=== PATIENT | female | born 1955 | race Caucasian/White ===

== ENCOUNTER → 2018-02-22 11:05 | Outpatient (CLI) | payer MEDICARE, SELFPAY ==
[2018-02-22 12:20] LABS: Add Manual Diff / Slide Review NO; Basophils Percent Auto 0.6 % (0-2); Eosinophils Percent Auto 1.8 % (2-4); Hematocrit 42.7 % (36-46); Hemoglobin 14.8 g/dL (12.0-16.0); Mean Corpuscular HGB Conc 34.7 % (30-36); Monocytes Percent Auto 7.4 % (3-14); Neutrophils Absolute Auto 2400 /uL (3000-5900); Neutrophils Percent Auto 58.2 % (50-75); Platelet Count 191 X10^3/uL (150-400); Red Cell Distribution Width 12.8 % (11.6-14.8); White Blood Cell Count 4.1 X10^3/uL (4.5-11.0)
[2018-02-22 12:34] LABS: Erythrocyte Sedimentation Rate 1 MM/HR (0-20)
[2018-02-22 13:09] LABS: Prothrombin Time 10.4 SECONDS (10.1-12.7)
[2018-02-22 13:10] LABS: Free T3, Triiodothyronine Free 4.01 pg/mL (2.77-5.27); Free T4, Direct Thyroxine 0.66 ng/dL (0.78-2.19)
[2018-02-22 13:18] LABS: Alanine Aminotransferase 35 IU/L (9-52); Albumin 4.3 g/dL (3.5-5.0); Albumin Globulin Ratio 1.6 (1.0-2.8); Alkaline Phosphatase 54 U/L (38-126); Aspartate Aminotransferase 21 IU/L (14-36); BUN Creatinine Ratio 16.7 (6-22); Bilirubin Total 0.4 mg/dL (0.2-1.3); Calcium 8.8 mg/dL (8.4-10.2); Estimated Glomerular Filt Rate > 60.0 mL/min (>60); Globulin 2.7 g/dL (1.7-4.1); Glucose 92 mg/dL (80-110); HEMOLYSIS 16 (0-50); Sodium 139 mmol/L (137-145)
[2018-02-22 13:21] LABS: C-Reactive Protein Quant < 0.5 mg/dL (<1.0)
[2018-02-22 13:24] LABS: Thyroid Stimulating Hormone 2.81 uIU/mL (0.47-4.68)
[2018-02-26 13:57] LABS: Thyroglobulin Antibodies < 1 IU/mL (< 2); Thyroglobulin Level 28.3 ng/mL (2.8-40.9)
[2018-03-01 16:58] LABS: Triiodothyronine T3 Reverse 7 ng/dL (8-25)
== END ==
PROVIDERS: Family Provider Family Medicine; PCP Family Medicine; Visit Provider Family Medicine
DX: R53.82 Chronic fatigue, unspecified (principal); R23.8 Other skin changes
CPT/HCPCS: 36415; 80053; 84432; 84439; 84443; 84481; 84482; 85025; 85610; 85651; 86140; 86800

== ENCOUNTER → 2018-03-08 12:48 | Outpatient (CLI) | payer MEDICARE, SELFPAY ==
--- NOTE | 2018-03-08 | DI.MG.S_ITS ---
BILATERAL DIGITAL SCREENING MAMMOGRAM 3D/2D WITH CAD: 03/08/2018 CLINICAL: Routine screening. Family history of breast cancer. Comparison is made to exams dated: 12/07/2016 mammogram, 09/24/2014 mammogram - [facility], and 03/01/2012 mammogram - [facility]. The tissue of both breasts is heterogeneously dense. This may lower the sensitivity of mammography. Current study was also evaluated with a Computer Aided Detection (CAD) system. No significant masses, calcifications, or other findings are seen in either breast. There has been no significant interval change. IMPRESSION: NEGATIVE There is no mammographic evidence of malignancy. A 1 year screening mammogram is recommended. This exam was interpreted at Station ID: [id number]. NOTE: For mammograms, a report in lay terms will be sent to the patient. Approximately 15% of breast malignancies will not be visualized mammographically. In the management of a palpable breast mass, a negative mammogram must not discourage biopsy of a clinically suspicious lesion. Electronically Signed By: Jaylon gardner/johnie:03/08/2018 15:18:42 letter sent: Normal Exam ACR BI-RADS Category 1: Negative [id number]
== END ==
PROVIDERS: Family Provider Family Medicine; PCP Family Medicine; Visit Provider Family Medicine
DX: Z12.31 Encounter for screening mammogram for malignant neoplasm of breast (principal); Z80.3 Family history of malignant neoplasm of breast
CPT/HCPCS: 77063; 77067

== ENCOUNTER 2018-04-06 05:59 | Emergency (ER) | payer MEDICARE, SELFPAY ==
[2018-04-06 06:11] VITALS: BP 156/107; PULSE 89; RESP 22; TEMP 36.9; O2SAT 100; BMI 26.6
--- NOTE | 2018-04-06 06:40 | ED_ITS ---
HPI - Weakness <Ben Odell, DO - Last Filed: 04/06/18 20:09> General Chief complaint: Weakness Stated complaint: Weakness Time Seen by Provider: 04/06/18 06:06 Source: patient and family Limitations: no limitations History of Present Illness HPI Narrative: 62-year-old female with extensive history of anxiety, depression and multiple sclerosis presents via EMS for evaluation of feeling very shaky, sweaty, anxious and confused. She was unable to ambulate to her car this morning as she was so shaky. She denies measured fever but feels very hot and sweaty. She states the symptoms have been present by and large for the past 7- 10 days. Patient has been taking clonazepam 2 mg p.o. t.i.d. for many years as well as temazepam 15 mg t.i.d.. Patient states that there was some confusion between her, Dr. Bey office, and the pharmacy and the patient has been without benzodiazepines for approximately 7-10 days. This is verified by checking the [place] prescription monitoring program and she has had a lack of access and has apparently gone ?cold turkey?. Her PCP is out of town and she has been unsuccessful in reaching Dr. Bey. Complaint: generalized weakness, lack of energy and difficulty walking Onset (ago): day(s) Duration: constant Location: generalized Related Data Home Medications Medication Instructions Recorded Confirmed cholecalciferol (vitamin D3) 5,000 iu PO QDAY #0 02/05/17 [Vitamin D3] diphenhydramine HCl #0 10/18/17 melatonin 10 mg PO HS #0 10/18/17 Previous Rx's Medication Instructions Recorded pravastatin 40 mg PO HS #90 tab 11/09/17 temazepam 45 mg PO HS #30 cap 12/12/17 temazepam 45 mg PO SEE INSTRUCTIONS #30 cap 12/12/17 gabapentin [Neurontin] 600 mg PO TID #90 tab 01/28/18 carisoprodol 350 mg tablet 350 mg PO TID #90 tab 02/21/18 paroxetine 30 mg tablet 60 mg PO QDAY #60 tab 03/12/18 clonazepam 2 mg tablet 2 mg PO TID PRN #15 tab 03/27/18 clonazepam 2 mg PO TID #21 tab 04/06/18 temazepam 30 mg PO BEDTIME PRN #21 cap 04/06/18 Allergies Allergy/AdvReac Type Severity Reaction Status Date / Time niacin [NIACIN] Allergy Intermediate PASS OUT Verified 04/06/18 06:16 Review of Systems <DO William Frausto Last Filed: 04/06/18 20:09> Review of Systems All systems reviewed & are unremarkable except as noted in HPI and below Constitutional Reports chills, Denies fever(s), Reports headache(s), Denies lethargy, Reports poor appetite and Denies weakness Eyes Denies change in vision, Denies eye discharge, Denies irritation and Denies loss of vision ENT Ears, Nose, Mouth, and Throat: Denies change in voice, Reports headache(s), Denies neck pain and Denies sore throat Cardiovascular Denies chest pain, Denies irregular heart rhythm, Denies lightheadedness, Denies palpitations, Denies dyspnea, Denies dyspnea on exertion and Denies orthopnea Respiratory Denies cough, Denies dyspnea, Denies dyspnea on exertion and Denies wheezing Gastrointestinal Gastrointestinal: Denies abdominal pain, Denies change in bowel habits, Denies diarrhea, Reports nausea and Denies vomiting Genitourinary Denies hematuria, Denies flank pain, Denies urinary incontinence and Denies urinary urgency Musculoskeletal Denies neck pain Integumentary/Breasts Denies pruritus, Denies erythema, Denies rash and Denies wounds Neurologic Denies confusion, Reports headache(s), Denies loss of vision and Denies weakness Psychiatric Denies anxiety, Denies confusion, Denies depression, Denies homicidal ideation and Denies suicidal ideation Endocrine Denies palpitations Hematologic/Lymphatic Denies easy bruising Allergic/Immunologic Denies wheezing Exam <DO William Frausto Last Filed: 04/06/18 20:09> Narrative Exam Narrative: 62-year-old female is visibly anxious, tremulous, a bit confused with trouble following conversations Initial Vital Signs Initial Vital Signs: Vital Signs Temperature 98.4 F 04/06/18 06:11 Pulse Rate 89 04/06/18 06:11 Respiratory Rate 22 04/06/18 06:11 Blood Pressure 156/107 H 04/06/18 06:11 Pulse Oximetry 100 04/06/18 06:11 Const General: acute distress, anxious, diaphoretic and disheveled Nutritional Appearance: well nourished Orientation: alert, awake, oriented x3 and confused Other: Resting tremors [facility] Head: normocephalic and atraumatic Ears: external ears normal and TM's normal bilaterally Nose: external nose normal and No nasal discharge Face and sinus: sinuses nontender, face symmetric, no sinus tenderness and No dry mucous membranes Mouth: oral mucosae normal and moist mucous membranes Teeth and gingiva: dentition normal Throat: tonsils normal and uvula midline Eyes General: appearance normal, both eyes and all related structures Eyelids: eyelids normal Conjunctivae: conjunctivae normal Sclera: sclerae normal Pupils: PERRL EOM: EOM intact bilaterally Neck Neck: normal visual inspection, trachea midline, No lymphadenopathy, No midline deformity and No JVD Lymphatic: No lymphedema Resp Effort & Inspection: normal respiratory effort, able to speak in complete sentences, no respiratory distress and no use of accessory muscles Auscultation: clear to auscultation bilaterally, no rales, no rhonchi and no wheezes GI Inspection: non-distended Palpation: soft, no hepatosplenomegaly, No guarding, No pulsatile mass and No tender Auscultation: normal bowel sounds Skin General: no rashes or lesions noted, No jaundice and No petechiae Neuro General: alert, awake and oriented x3 Cranial Nerves: CN's II-XI intact bilaterally Cognition: abnormal cognition Speech: speech normal Motor: muscle tone normal throughout Sensory Exam: no sensory deficits noted Extrem Other: Resting tremors and upper extremities Psych Appearance: disheveled Speech and Movement: pressured speech and restless Mood: anxious mood Attitude: cooperative Thought Content: delusions <Stas Dahl DO - Last Filed: 04/06/18 09:01> Initial Vital Signs Initial Vital Signs: Vital Signs Temperature 98.4 F 04/06/18 06:11 Pulse Rate 89 04/06/18 06:11 Respiratory Rate 22 04/06/18 06:11 Blood Pressure 156/107 H 04/06/18 06:11 Pulse Oximetry 100 04/06/18 06:11 Course <Ben Odell DO - Last Filed: 04/06/18 20:09> Orders Ordered: Discontinued Medications Sodium Chloride (Normal Saline 0.9%) 1,000 mls @ 150 mls/hr IV CONT NATALIE Last Admin: 04/06/18 08:48 Dose: Not Given Lorazepam (Ativan) 2 mg IV NOW ONE Stop: 04/06/18 06:16 Last Admin: 04/06/18 08:48 Dose: Not Given Lorazepam (Ativan) 2 mg PO NOW ONE Stop: 04/06/18 06:43 Last Admin: 04/06/18 06:47 Dose: 2 mg Reevaluation(s) Reevaluation #1: patient is a difficult IV start. She asks us to give her a break. Ativan PO administered. Time: 07:01 Vital Signs - 8 hr 04/06/18 06:11 04/06/18 06:57 04/06/18 08:20 Temperature 98.4 F Pulse Rate 89 88 95 H Respiratory Rate 22 14 Blood Pressure 156/107 H Blood Pressure [Left Arm] 123/78 H 157/87 H Pulse Oximetry 100 96 <Stas Dahl DO - Last Filed: 04/06/18 09:01> Orders Ordered: Discontinued Medications Sodium Chloride (Normal Saline 0.9%) 1,000 mls @ 150 mls/hr IV CONT NATALIE Last Admin: 04/06/18 08:48 Dose: Not Given Lorazepam (Ativan) 2 mg IV NOW ONE Stop: 04/06/18 06:16 Last Admin: 04/06/18 08:48 Dose: Not Given Lorazepam (Ativan) 2 mg PO NOW ONE Stop: 04/06/18 06:43 Last Admin: 04/06/18 06:47 Dose: 2 mg Vital Signs - 8 hr 04/06/18 06:11 04/06/18 06:57 04/06/18 08:20 Temperature 98.4 F Pulse Rate 89 88 95 H Respiratory Rate 22 14 Blood Pressure 156/107 H Blood Pressure [Left Arm] 123/78 H 157/87 H Pulse Oximetry 100 96 MDM - Weakness <Ben Odell DO - Last Filed: 04/06/18 20:09> Lab Data Result diagrams: 04/06/18 07:43 04/06/18 07:43 Lab Results 04/06/18 04/06/18 04/06/18 Range/Units 07:43 07:43 07:43 WBC 8.6 (4.5-11.0) X10^3/uL RBC 4.62 (4.0-5.2) X10^6/uL Hgb 15.6 (12.0-16.0) g/dL Hct 45.5 (36-46) % MCV 98.6 (80-100) fL MCH 33.7 (26-34) PG MCHC 34.2 (30-36) % RDW 14.9 H (11.6-14.8) % Plt Count 287 (150-400) X10^3/uL Neut % (Auto) 78.5 H (50-75) % Lymph % (Auto) 15.5 L (25-40) % Tate % (Auto) 5.2 (3-14) % Eos % (Auto) 0.1 L (2-4) % Baso % (Auto) 0.7 (0-2) % Neut # (Auto) 6800 H (1877-7863) /uL Sodium 137 (137-145) mmol/L Potassium 4.4 (3.4-5.1) mmol/L Chloride 99 (98-107) mmol/L Carbon Dioxide 22 (22-32) mmol/L BUN 18 H (7-17) mg/dL Creatinine 0.90 (0.52-1.04) mg/dL Estimated GFR > 60.0 (>60) mL/min BUN/Creatinine Ratio 20.0 (6-22) Glucose 113 H (80-110) mg/dL Lactate 1.3 (0.7-2.1) mmol/L Calcium 9.4 (8.4-10.2) mg/dL Total Bilirubin 0.6 (0.2-1.3) mg/dL Conjugated Bilirubin 0.0 (0.0-0.3) md/dL Unconjugated Bilirubin 0.3 (0.0-1.1) mg/dL AST 16 (14-36) IU/L ALT 18 (9-52) IU/L Alkaline Phosphatase 61 (38-126) U/L Total Protein 7.6 (6.3-8.2) g/dL Albumin 4.8 (3.5-5.0) g/dL Globulin 2.8 (1.7-4.1) g/dL Albumin/Globulin Ratio 1.7 (1.0-2.8) TSH (0.47-4.68) uIU/mL Thyroxine (T4) (5.5-11.0) ug/dL Salicylates 5.7 (<20) mg/dL Acetaminophen < 10 L (10-30) ug/mL Ethyl Alcohol < 10 mg/dL 04/06/18 Range/Units 07:43 WBC (4.5-11.0) X10^3/uL RBC (4.0-5.2) X10^6/uL Hgb (12.0-16.0) g/dL Hct (36-46) % MCV (80-100) fL MCH (26-34) PG MCHC (30-36) % RDW (11.6-14.8) % Plt Count (150-400) X10^3/uL Neut % (Auto) (50-75) % Lymph % (Auto) (25-40) % Tate % (Auto) (3-14) % Eos % (Auto) (2-4) % Baso % (Auto) (0-2) % Neut # (Auto) (8378-6669) /uL Sodium (137-145) mmol/L Potassium (3.4-5.1) mmol/L Chloride (98-107) mmol/L Carbon Dioxide (22-32) mmol/L BUN (7-17) mg/dL Creatinine (0.52-1.04) mg/dL Estimated GFR (>60) mL/min BUN/Creatinine Ratio (6-22) Glucose (80-110) mg/dL Lactate (0.7-2.1) mmol/L Calcium (8.4-10.2) mg/dL Total Bilirubin (0.2-1.3) mg/dL Conjugated Bilirubin (0.0-0.3) md/dL Unconjugated Bilirubin (0.0-1.1) mg/dL AST (14-36) IU/L ALT (9-52) IU/L Alkaline Phosphatase (38-126) U/L Total Protein (6.3-8.2) g/dL Albumin (3.5-5.0) g/dL Globulin (1.7-4.1) g/dL Albumin/Globulin Ratio (1.0-2.8) TSH 1.78 (0.47-4.68) uIU/mL Thyroxine (T4) 4.75 L (5.5-11.0) ug/dL Salicylates (<20) mg/dL Acetaminophen (10-30) ug/mL Ethyl Alcohol mg/dL <Stas Dahl DO - Last Filed: 04/06/18 09:01> Lab Data Attestation: I reviewed the patient's lab results. Lab Results 04/06/18 04/06/18 04/06/18 Range/Units 07:43 07:43 07:43 WBC 8.6 (4.5-11.0) X10^3/uL RBC 4.62 (4.0-5.2) X10^6/uL Hgb 15.6 (12.0-16.0) g/dL Hct 45.5 (36-46) % MCV 98.6 (80-100) fL MCH 33.7 (26-34) PG MCHC 34.2 (30-36) % RDW 14.9 H (11.6-14.8) % Plt Count 287 (150-400) X10^3/uL Neut % (Auto) 78.5 H (50-75) % Lymph % (Auto) 15.5 L (25-40) % Tate % (Auto) 5.2 (3-14) % Eos % (Auto) 0.1 L (2-4) % Baso % (Auto) 0.7 (0-2) % Neut # (Auto) 6800 H (5416-4903) /uL Sodium 137 (137-145) mmol/L Potassium 4.4 (3.4-5.1) mmol/L Chloride 99 (98-107) mmol/L Carbon Dioxide 22 (22-32) mmol/L BUN 18 H (7-17) mg/dL Creatinine 0.90 (0.52-1.04) mg/dL Estimated GFR > 60.0 (>60) mL/min BUN/Creatinine Ratio 20.0 (6-22) Glucose 113 H (80-110) mg/dL Lactate 1.3 (0.7-2.1) mmol/L Calcium 9.4 (8.4-10.2) mg/dL Total Bilirubin 0.6 (0.2-1.3) mg/dL Conjugated Bilirubin 0.0 (0.0-0.3) md/dL Unconjugated Bilirubin 0.3 (0.0-1.1) mg/dL AST 16 (14-36) IU/L ALT 18 (9-52) IU/L Alkaline Phosphatase 61 (38-126) U/L Total Protein 7.6 (6.3-8.2) g/dL Albumin 4.8 (3.5-5.0) g/dL Globulin 2.8 (1.7-4.1) g/dL Albumin/Globulin Ratio 1.7 (1.0-2.8) TSH (0.47-4.68) uIU/mL Thyroxine (T4) (5.5-11.0) ug/dL Salicylates 5.7 (<20) mg/dL Acetaminophen < 10 L (10-30) ug/mL Ethyl Alcohol < 10 mg/dL 04/06/18 Range/Units 07:43 WBC (4.5-11.0) X10^3/uL RBC (4.0-5.2) X10^6/uL Hgb (12.0-16.0) g/dL Hct (36-46) % MCV (80-100) fL MCH (26-34) PG MCHC (30-36) % RDW (11.6-14.8) % Plt Count (150-400) X10^3/uL Neut % (Auto) (50-75) % Lymph % (Auto) (25-40) % Tate % (Auto) (3-14) % Eos % (Auto) (2-4) % Baso % (Auto) (0-2) % Neut # (Auto) (2929-4915) /uL Sodium (137-145) mmol/L Potassium (3.4-5.1) mmol/L Chloride (98-107) mmol/L Carbon Dioxide (22-32) mmol/L BUN (7-17) mg/dL Creatinine (0.52-1.04) mg/dL Estimated GFR (>60) mL/min BUN/Creatinine Ratio (6-22) Glucose (80-110) mg/dL Lactate (0.7-2.1) mmol/L Calcium (8.4-10.2) mg/dL Total Bilirubin (0.2-1.3) mg/dL Conjugated Bilirubin (0.0-0.3) md/dL Unconjugated Bilirubin (0.0-1.1) mg/dL AST (14-36) IU/L ALT (9-52) IU/L Alkaline Phosphatase (38-126) U/L Total Protein (6.3-8.2) g/dL Albumin (3.5-5.0) g/dL Globulin (1.7-4.1) g/dL Albumin/Globulin Ratio (1.0-2.8) TSH 1.78 (0.47-4.68) uIU/mL Thyroxine (T4) 4.75 L (5.5-11.0) ug/dL Salicylates (<20) mg/dL Acetaminophen (10-30) ug/mL Ethyl Alcohol mg/dL MDM Narrative Medical decision making narrative: Dr Dahl : Received turned over from night ER provider. Reviewed patient's history and physical exam and resulted labs. Performed my own history and physical. Thyroid levels pending at the time of discharge however patient did not want to stay for the results. Patient stated that she had a resolution of all of her presenting symptoms after receiving the Ativan here in the emergency department. I have a strong suspicion that patient 's presenting symptoms this morning were result of benzodiazepine withdrawal. Patient has been on a significant amount of benzodiazepines for several years now and she ran out approximately 7-10 days ago. Patient states that she ran out because her psychiatrist who is now managing these medications did not refill them because she missed an appointment. This was per the patient's report. Patient reported to me that she is taking temazepam 45 mg at night and clonazepam 2 mg in the morning 1 mg in the afternoon and 2 mg at night. According to the [place] prescription monitoring program patient had the clonazepam refilled on the 27 of March. This was 15 tablets listed as a 5 day supply. Patient's last temazepam was filled on the 24 of February. This was 90 pills listed as a 30 day supply. Patient was informed that I could refill her medications here in the emergency department however it would only be a short supply. She was informed that she needed to contact either her primary doctor or her mental health provider to discuss long-term medication refills. Patient expressed understanding. She was alert and oriented x3 and in my opinion had capacity to make decisions. Family was at bedside for these discussions. She was given return precautions. She expressed understanding and agreement with plan Discharge Plan Departure Patient Disposition: Home, Self-Care Clinical Impression: Benzodiazepine withdrawal with delirium Discharge Date/Time: 04/06/18 09:07 Interventions: ED Discharge Assessment Last Done: 04/06/18 09:05 Instructions: Benzodiazepines (Alternative Therapy) Activity Restrictions/Additional Instructions: You need to make contact with either your primary care doctor or your psychiatrist to obtain long-term medication prescriptions. Call 1 of these providers on Sunday. Return to the emergency department for any new or worsening symptoms Prescriptions: New temazepam 15 mg capsule 30 mg PO BEDTIME PRN (Reason: sleep) Qty: 21 RF: 0 clonazepam 2 mg tablet 2 mg PO TID Qty: 21 RF: 0 No Action cholecalciferol (vitamin D3) [Vitamin D3] 2,000 UNIT capsule 5,000 iu PO QDAY Qty: 0 RF: 0 diphenhydramine HCl 50 MG capsule Qty: 0 RF: 0 melatonin 10 MG capsule 10 mg PO HS Qty: 0 RF: 0 pravastatin 40 MG tablet 40 mg PO HS Qty: 90 RF: 3 temazepam 15 MG capsule 45 mg PO HS Qty: 30 RF: 1 temazepam 30 MG capsule 45 mg PO SEE INSTRUCTIONS Qty: 30 RF: 2 gabapentin [Neurontin] 600 MG tablet 600 mg PO TID Qty: 90 RF: 2 carisoprodol 350 mg tablet 350 mg PO TID Qty: 90 RF: 1 paroxetine HCl 30 mg tablet 60 mg PO QDAY Qty: 60 RF: 1 clonazepam 2 mg tablet 2 mg PO TID PRN (Reason: anxiety) Qty: 15 RF: 0
[2018-04-06] MEDS: LORazepam 1 MG TABLET 2 MG PO (06:47)
--- NOTE | 2018-04-06 06:52 | PC.NURSE ---
7 unsuccessful iv starts. 2 nurses tried 7 different spots. pt having difficulty with anxiety and keeps flinching/pulling away. provider notified and order received for po medication.
[2018-04-06 06:57] VITALS: BP 123/78; PULSE 88
--- NOTE | 2018-04-06 07:21 | PC.NURSE ---
pt is able to keep a train of thought and articulate what she wants to say after ativan on board. pt tremors have decreased and she is now able to bring water bottle to mouth to drink in one steady slow movement
[2018-04-06 08:03] LABS: Add Manual Diff / Slide Review NO; Basophils Percent Auto 0.7 % (0-2); Eosinophils Percent Auto 0.1 % (2-4); Hematocrit 45.5 % (36-46); Hemoglobin 15.6 g/dL (12.0-16.0); Lymphocytes Percent Auto 15.5 % (25-40); Mean Corpuscular HGB Conc 34.2 % (30-36); Mean Corpuscular Hemoglobin 33.7 PG (26-34); Mean Corpuscular Volume 98.6 fL (80-100); Monocytes Percent Auto 5.2 % (3-14); Neutrophils Absolute Auto 6800 /uL (3000-5900); Neutrophils Percent Auto 78.5 % (50-75); Platelet Count 287 X10^3/uL (150-400); Red Blood Cell Count 4.62 X10^6/uL (4.0-5.2); Red Cell Distribution Width 14.9 % (11.6-14.8); White Blood Cell Count 8.6 X10^3/uL (4.5-11.0)
[2018-04-06 08:06] LABS: Lactate (Lactic Acid) 1.3 mmol/L (0.7-2.1)
[2018-04-06 08:08] LABS: Acetaminophen < 10 ug/mL (10-30); Alanine Aminotransferase 18 IU/L (9-52); Albumin 4.8 g/dL (3.5-5.0); Albumin Globulin Ratio 1.7 (1.0-2.8); Alkaline Phosphatase 61 U/L (38-126); Aspartate Aminotransferase 16 IU/L (14-36); Bilirubin Total 0.6 mg/dL (0.2-1.3); Bilirubin Unconjugated 0.3 mg/dL (0.0-1.1); Blood Urea Nitrogen 18 mg/dL (7-17); Calcium 9.4 mg/dL (8.4-10.2); Carbon Dioxide 22 mmol/L (22-32); Chloride 99 mmol/L (98-107); Estimated Glomerular Filt Rate > 60.0 mL/min (>60); Ethanol (ETOH) < 10 mg/dL; Globulin 2.8 g/dL (1.7-4.1); Glucose 113 mg/dL (80-110); HEMOLYSIS < 15 (0-50); Potassium 4.4 mmol/L (3.4-5.1); Salicylate 5.7 mg/dL (<20); Sodium 137 mmol/L (137-145); Total Protein 7.6 g/dL (6.3-8.2)
[2018-04-06 08:20] VITALS: BP 157/87; PULSE 95; RESP 14; O2SAT 96
[2018-04-06 09:07] LABS: Thyroid Stimulating Hormone 1.78 uIU/mL (0.47-4.68)
[2018-04-06 09:45] LABS: T4 Total Thyroxine 4.75 ug/dL (5.5-11.0)
== END 2018-04-06 09:07 | disposition home or self-care (01) ==
PROVIDERS: Emergency Medicine; Emergency Provider Emergency Medicine; Family Provider Family Medicine; PCP Family Medicine
DX: F13.231 Sedative, hypnotic or anxiolytic dependence with withdrawal delirium (principal)
CPT/HCPCS: 80053; 80076; 80320; 80329; 83605; 84436; 84443; 85025; 93005; 99283; 99284; G0480

== ENCOUNTER → 2018-09-06 14:30 | Oncology outpatient (ONC) | payer MEDICARE, SELFPAY ==
[2018-09-03 15:19] LABS: Add Manual Diff / Slide Review NO; Basophils Percent Auto 1.1 % (0-2); Eosinophils Percent Auto 1.3 % (2-4); Hematocrit 41.5 % (36-46); Hemoglobin 14.6 g/dL (12.0-16.0); Lymphocytes Percent Auto 31.3 % (25-40); Mean Corpuscular HGB Conc 35.1 % (30-36); Mean Corpuscular Hemoglobin 34.4 PG (26-34); Mean Corpuscular Volume 98.1 fL (80-100); Monocytes Percent Auto 7.7 % (3-14); Neutrophils Absolute Auto 3600 /uL (3000-5900); Neutrophils Percent Auto 58.6 % (50-75); Platelet Count 283 X10^3/uL (150-400); Red Blood Cell Count 4.23 X10^6/uL (4.0-5.2); Red Cell Distribution Width 12.9 % (11.6-14.8); White Blood Cell Count 6.1 X10^3/uL (4.5-11.0)
[2018-09-03 15:28] LABS: Alanine Aminotransferase 27 IU/L (9-52); Albumin 4.4 g/dL (3.5-5.0); Albumin Globulin Ratio 1.8 (1.0-2.8); Alkaline Phosphatase 63 U/L (38-126); Aspartate Aminotransferase 19 IU/L (14-36); BUN Creatinine Ratio 25.7 (6-22); Bilirubin Total 0.2 mg/dL (0.2-1.3); Blood Urea Nitrogen 18 mg/dL (7-17); Calcium 8.5 mg/dL (8.4-10.2); Carbon Dioxide 24 mmol/L (22-32); Chloride 107 mmol/L (98-107); Estimated Glomerular Filt Rate > 60.0 mL/min (>60); Globulin 2.5 g/dL (1.7-4.1); Glucose 87 mg/dL (80-110); HEMOLYSIS 29 (0-50); Potassium 3.9 mmol/L (3.4-5.1); Sodium 142 mmol/L (137-145); Total Protein 6.9 g/dL (6.3-8.2)
[2018-09-03] MEDS: methylPREDNISolone 1,000 MG in SODIUM CHLORIDE 0.9% 250 ML 258 ML IV (15:38)
[2018-09-03 15:39] LABS: Uric Acid 3.6 mg/dL (2.5-6.2)
[2018-09-03 16:24] VITALS: BP 160/101; PULSE 92; RESP 18; TEMP 37.1; O2SAT 92
--- NOTE | 2018-09-03 16:39 | PC.NURSE ---
pt has elevated BP of 160/101. Results were verified via manual cuff. Call placed to Dr. Guerrero but ended up speaking with Dr. Mccall who reviewed her BP hx and did confirm that she has been running high for sometime. She mentioned pt was on a beta cyndi but I do not see that from my view of her medication profile. Dr Mccall declined to add any additional medications to her list and pt was instructed to go to the ED if she was having a headache, dizziness or n/v from symptoms
--- NOTE | 2018-09-03 16:51 | PC.NURSE ---
IV flushed. PT requesting to leave IV in for infusion tomorrow at 3pm. Education provided and IV secured, CDI>
[2018-09-04 15:00] VITALS: BP 144/92; PULSE 86; RESP 16; TEMP 36.9; O2SAT 97
[2018-09-04] MEDS: methylPREDNISolone 1,000 MG in SODIUM CHLORIDE 0.9% 250 ML 258 ML IV (15:06)
--- NOTE | 2018-09-05 14:53 | PC.NURSE ---
Patient here for Solu-medrol infusion. Pre infusion blood glucose is 88mg/dl.
[2018-09-05] MEDS: methylPREDNISolone 1,000 MG in SODIUM CHLORIDE 0.9% 250 ML 258 ML IV (15:10)
[2018-09-06] MEDS: methylPREDNISolone 1,000 MG in SODIUM CHLORIDE 0.9% 250 ML 258 ML IV (14:32)
[2018-09-06 14:37] VITALS: BP 154/89; PULSE 74; RESP 18; TEMP 36.9
[2018-09-07 13:46] VITALS: BP 168/93; PULSE 74; RESP 14; TEMP 36.8; O2SAT 97
[2018-09-07] MEDS: methylPREDNISolone 1,000 MG in SODIUM CHLORIDE 0.9% 250 ML 258 ML IV (14:00)
== END ==
PROVIDERS: Family Provider Family Medicine; PCP Family Medicine; Visit Provider Physician Assistant
DX: G35 Multiple sclerosis (principal)
CPT/HCPCS: 80053; 82962; 84550; 85025; 96365; 96413; J2930

== ENCOUNTER → 2018-10-19 07:40 | Outpatient (CLI) | payer MEDICARE, SELFPAY ==
[2018-10-19 09:21] LABS: Add Manual Diff / Slide Review NO; Basophils Absolute Auto 100 /uL (0-100); Basophils Percent Auto 1.3 % (0-2); Eosinophils Absolute Auto 100 /uL (0-450); Eosinophils Percent Auto 1.2 % (2-4); Hematocrit 41.9 % (36-46); Hemoglobin 14.7 g/dL (12.0-16.0); Lymphocytes Absolute Auto 1700 /uL (1100-4500); Lymphocytes Percent Auto 34.2 % (25-40); Mean Corpuscular HGB Conc 35.1 % (30-36); Mean Corpuscular Hemoglobin 34.6 PG (26-34); Mean Corpuscular Volume 98.6 fL (80-100); Monocytes Absolute Auto 500 /uL (0-900); Monocytes Percent Auto 9.2 % (3-14); Neutrophils Absolute Auto 2700 /uL (1500-7000); Neutrophils Percent Auto 54.1 % (50-75); Platelet Count 232 X10^3/uL (150-400); Red Blood Cell Count 4.25 X10^6/uL (4.0-5.2); Red Cell Distribution Width 12.6 % (11.6-14.8); White Blood Cell Count 5.1 X10^3/uL (4.5-11.0)
[2018-10-19 09:22] LABS: BUN Creatinine Ratio 16.3 (6-22); Blood Urea Nitrogen 13 mg/dL (7-17); Estimated Glomerular Filt Rate > 60.0 mL/min (>60); HDL Cholesterol 33 mg/dL (40-60)
[2018-10-19 09:30] LABS: Hemoglobin A1C% w Est Avg Glu 5.6 % (4.0-6.0)
[2018-10-19 09:36] LABS: Cholesterol 460 mg/dL (140-199)
[2018-10-19 09:54] LABS: TSH w/ Reflex to FT4 4.41 uIU/mL (0.47-4.68)
[2018-10-19 10:10] LABS: Vitamin B12 500 pg/mL (239-931)
[2018-10-19 10:14] LABS: Triglycerides 1697 mg/dL (35-150)
[2018-10-23 12:51] LABS: LDL Cholesterol Direct 37 mg/dL (<100)
== END ==
PROVIDERS: PCP Family Medicine; Visit Provider Psychiatry & Neurology Neurology
DX: G35 Multiple sclerosis (principal); R73.03 Prediabetes; E78.2 Mixed hyperlipidemia
CPT/HCPCS: 36415; 80061; 82565; 82607; 83036; 83721; 84443; 84520; 85025

== ENCOUNTER → 2018-10-21 07:01 | Outpatient (CLI) | payer MEDICARE, SELFPAY ==
--- NOTE | 2018-10-21 | DI.MRI.S_ITS ---
PROCEDURE: MR HEAD/BRAIN WO/W CON INDICATIONS: MULTIPLE SCLEROSIS TECHNIQUE: Noncontrast sagittal and axial FLAIR, axial and coronal T2 fast spin echo, axial VIBE, axial gradient echo, axial diffusion and ADC through the brain. After the administration of contrast, axial and coronal VIBE with fat saturation through the brain. COMPARISON: [facility], MR, MR CERVICAL SPINE WITH/WITHOUT CONTRAST, 08/24/2018, 10:13. FINDINGS: Image quality: Excellent. CSF spaces: Ventricles are normal in size and shape. Basal cisterns are patent. No extra-axial fluid collections. Brain: No intracranial bleeds or mass effects. Aguirre-white matter interface appears intact. There are several suspicious white matter lesions involving the deep white matter immediately adjacent to the corpus callosum, best seen at the posterior genu of the corpus callosum and also a centripetally oriented lesion in the middle third of the corpus callosum on the left (series 5 image 15). No abnormal intracranial enhancement. Diffusion weighted images show no acute ischemic insults. Brainstem appears normal. Normal intravascular flow voids are present. Skull and face: Calvarial marrow signal is normal. Orbits appear normal. Sinuses: Sinuses and mastoids are clear. IMPRESSION: No acute disease, no contrast enhancing lesion is seen throughout the brain parenchyma. Note is made of deep white matter areas of elevated fluid signal along the corpus callosum, one of which is centripetally oriented and there is relative prominence of these abnormalities along the posterior genu of the corpus callosum. The findings are consistent with underlying multiple sclerosis. Please also refer to the cervical MR study performed 08/24/18 at [facility]. Dictated by: Ezequiel Bran M.D. on 10/21/2018 at 9:10 Approved by: Ezequiel Bran M.D. on 10/21/2018 at 9:16
== END ==
PROVIDERS: Family Provider Family Medicine; PCP Family Medicine; Visit Provider Physician Assistant
DX: G35 Multiple sclerosis (principal)
CPT/HCPCS: 70553; A9579

== ENCOUNTER → 2018-12-11 06:57 | Outpatient (CLI) | payer MEDICARE, SELFPAY ==
[2018-12-11 08:34] LABS: HDL Cholesterol 37 mg/dL (40-60)
[2018-12-11 09:20] LABS: Cholesterol 588 mg/dL (140-199)
[2018-12-11 09:21] LABS: Triglycerides 1823 mg/dL (35-150)
[2018-12-11 10:11] LABS: LDL Cholesterol Direct 46 mg/dL (<100)
== END ==
PROVIDERS: PCP Family Medicine; Visit Provider Family Medicine
DX: E78.2 Mixed hyperlipidemia (principal); Z79.899 Other long term (current) drug therapy
CPT/HCPCS: 36415; 80061; 83721

== ENCOUNTER 2019-01-30 16:00 | Outpatient (RCR) | payer MEDICARE, SELFPAY ==
--- NOTE | 2019-01-23 15:20 | PT.OIE ---
Current Diagnoses Multiple sclerosis (01/23/19) Unsteadiness on feet (01/23/19) Weakness (01/23/19) Past Medical History (Last Updated 03/27/18 @ 09:58 by Mellissa Leung) Anxiety (Chronic 12/10/14) Depression (Chronic 12/10/14) Multiple sclerosis (Chronic 12/10/14) Tobacco use disorder (Chronic 12/10/14) Gastroesophageal reflux disease (Chronic 04/28/15) Prediabetes (Chronic 10/11/16) Mixed hyperlipidemia (Chronic 10/11/16) Insomnia due to other mental disorder (Chronic 10/11/16) Abnormal Pap smear of cervix (Acute) Anesthesia (Acute) Chronic back pain (Acute) Endometriosis (Acute ~1973) Fibroids (Acute ~1976) Past Surgical History (Last Updated 06/11/18 @ 11:23 by Veronica Guerrero DO) History of tonsillectomy (~1958) Status post cholecystectomy (~2007) Status post hysterectomy (~1990) Provider Visit Care Team Role Provider Type Veronica Guerrero DO Attending Provider Physician Primary Care Provider Specialty: Family Practice Address: [address] [place] [address], [facility] Email: [email or web address] Physical Therapy Initial Evaluation PT-OP-A Visit Information Start: 01/23/19 16:49 Freq: Status: Active Protocol: Document 01/23/19 15:20 DLM (Rec: 01/23/19 17:44 HIEN [email or web address]) Out-Patient Physical Therapy Visit Information Visit Information Visit Type Initial Evaluation Visit Start Time 15:20 Visit Stop Time 16:20 Total Visit Minutes 60 Visit Number 1 Number of CONVENTIONS RESERVATIONIST Visits 0 Evaluation Information Evaluation Date 01/23/19 PT-OP-B Current Condition Start: 01/23/19 16:49 Freq: Status: Active Protocol: Document 01/23/19 15:20 DLM (Rec: 01/23/19 17:44 DLM [email or web address]) Current Condition History of Current Condition Onset Date 12/25/18 Current Complaints weakness and tremors History of Current Condition She had a severe flare-up of her nerve pain in her arms and legs over the winter that made her bed ridden for weeks. She got very weak from being in bed so long. She has been out of bed now for 2.5- 3 months but her strength has been slow to improve. She still has some days with severe tremors that make her unable to leave the house. She gets tired fast. The pain in her feet make it hard to wear shoes. She was diagnosed with MS 13 years ago. Prior Treatments and Tests Physical Therapy in the past while living in [place] for her balance and back spasms both associated with her MS. Future Testing and Treatments Planned plans to try the yoga class at the [facility] that her Sister teaches Treatment Goals Patient/Caregiver Goals 1) Increase her strength 2) Be able to stand for 30 minutes 3) Be able to get out of the house more often 4) Decrease her tremors Prior Functional Status Baseline Function- ADL's Independent Baseline Function- Mobility Independent Baseline Function- Gait Independent gait with quad cane Baseline Function- Recreation/Hobbies Walks for exercise, road a recumbent bike in the past for exercise Baseline Function- Other Was helping take care of her Mother before she , moved to [place] from [place] after her divorce Current Functional Impairments (Reported) Functional Limitations- ADL's pain in her feet make it hard to wear shoes some days, takes a week to clean the house, has not been able to go shopping (Sister helps her) Functional Limitations- Mobility/Gait Independent with quad cane, can only stand for 5-7 minutes at a time, can only walk about 200 feet before having to sit and rest Functional Limitations- Recreation/ She drives when her tremors Hobbies are not too bad Functional Limitations- Other she goes for infusion treatments every 6 months now for MS treatment, she can only sleep for 5.5 hours at a time then has to take a nap later in the day Personal Factors Other Personal Factors That May Effect History of depression which is Therapy/Recovery being treated, history of falls with injury but none recently per pt report, retina impairments that effect her vision PT-OP-C Subjective Start: 01/23/19 16:49 Freq: Status: Active Protocol: Document 01/23/19 15:20 DLM (Rec: 01/23/19 17:44 DLM [email or web address]) OP-PT Subjective Patient Comments Patient Comments She agrees to start PT 2x/week OP-PT Pain Assessment Pain Assessment Grid Paper Pain Assessment Grid Completed Yes: nerve pain described in arms and legs Location Bilateral Arm Pain Location Details shoulder to fingers Intensity 5 Scale Used Numeric (1 - 10) Description Aching Frequency Constant Other Pain Aggravating Factors cold Pain Alleviating Factors Lying Supine Rest Bilateral Leg Pain Location Details feet to hips Intensity 5 Scale Used Numeric (1 - 10) Description Aching Description- Other hypersensative to touch and pressure Frequency Constant Other Pain Aggravating Factors cold, pressure from wearing shoes Pain Alleviating Factors Lying Supine Rest Other Pain Alleviating Factors Gabapentin did not help Home Pain Medication Use Pain Medications Used No Pain Behaviors Pain Behaviors Wincing PT-OP-D Balance Start: 01/23/19 16:49 Freq: Status: Active Protocol: Document 01/23/19 15:20 DLM (Rec: 01/23/19 17:44 DLM [email or web address]) OP-PT Balance Assessment Sitting Balance Static Sitting Balance Ability Normal Dynamic Sitting Balance Ability Good Standing Balance Static Standing Balance Ability Fair Dynamic Standing Balance Ability Fair Device Used none during testing Standing Balance Comments uses quad cane for gait, has 4WW to use on her bad days Balance Tests Single Limb Standing Single Limb- Right 3-5 sec Single Limb- Left 3-5 sec with more sway than right Semi-Tandem Standing Semi-Tandem Standing Balance can hold with wider base of support, unable to hold if foot touching other Tandem Tandem Standing unable to hold Bell Balance Assessment Evaluation Sitting to Standing Ability Independent w/out Hands Unsupported Stance Safely- 2 minutes Sitting Unsupported, Feet on Floor Safely- 2 minutes Standing to Sitting Ability Safely, Minimal Hand Use Transfer Ability Safely, Minimal Hand Use Unsupported Stance- Eyes Closed Supervision, 10 seconds Unsupported Stance- Eyes Open Independent, 1 minute Reaching Forward Standing Confidently, 10 inches Pick- Up Object From Floor Within 2 inches, Unable Look Behind Shoulder - Standing Shifts Weight Well Turning 360 Degrees Turns slowly, but safely Unsupported Stance, Alternating Feet on 4 Steps w/Supervision Stair Unsupported Tandem Stance Holds Tandem- 30 seconds Unilateral Leg Stance Lifts Leg/Holds > 3 secs Total Score Bell Total Score (out of 56 points) 46 Bell Impairment Rating 1 to 19% Impaired (Score 45-55 ) Nataliia Fall Scale Copyright Permission Nataliia BAUTISTA, Nataliia RM, Bj S[place]. Development of a scale to identify the fall- prone patient. Can J Aging 1989;8;366-7. Anny William (2009). Preventing patient falls. (2nd ed). [place]: [place]. PT-OP-E Functional Tests Start: 01/23/19 16:49 Freq: Status: Active Protocol: Document 01/23/19 15:20 DLM (Rec: 01/23/19 17:44 DLM [email or web address]) Functional Tests Five Times Sit to Stand Test Score 20 sec, 17 sec Comments no use of UE's PT-OP-G Mobility & Gait Start: 01/23/19 16:49 Freq: Status: Active Protocol: Document 01/23/19 15:20 DLM (Rec: 01/23/19 17:44 DLM [email or web address]) OP Mobility Evaluation Bed Mobility Rolling Independent Supine to and from Sit Independent Transfers Sit to Stand Independent without UE support Bed to Chair Transfers Independent OP Gait Assessment Gait Gait Assistance Required: Independent Distance (Feet) 150 Assistive Devices Assistive Device Small Based Quad Cane Gait Deviations General Gait Pattern Ataxic Decreased Stride Length Wide Based Gait Factors Limiting Gait Function Factors Limiting Gait Function Abnormal Tonal Influences Decreased Activity Tolerance Poor Balance PT-OP-H Neuro Start: 01/23/19 16:49 Freq: Status: Active Protocol: Document 01/23/19 15:20 DLM (Rec: 01/23/19 17:44 DLM [email or web address]) Coordination Evaluation Lower Extremity Tests Left Foot Tapping Test Moderate Impairment Drawing a [facility] w/Foot Test Moderate Impairment Right Foot Tapping Test Moderate Impairment Drawing a [facility] w/Foot Test Moderate Impairment Muscle Tone Tone Assessment Right Lower Extremity Muscle Tone Comments tremors worse with movement and muscle testing, throughout body Left Lower Extremity Muscle Tone Comments tremors worse with movement and muscle testing, throughout body PT-OP-K Range of Motion Start: 01/23/19 16:49 Freq: Status: Active Protocol: Document 01/23/19 15:20 DLM (Rec: 01/23/19 17:44 DLM [email or web address]) Shoulder Goniometric Range of Motion Shoulder Measured in Degrees Right Active Shoulder ROM WFL Yes Left Active Shoulder ROM WFL Yes Hip Goniometric Range of Motion Hip Measured in Degrees Right Active Hip ROM WFL Yes Left Active Hip ROM WFL Yes PT-OP-M Strength Start: 01/23/19 16:49 Freq: Status: Active Protocol: Document 01/23/19 15:20 DLM (Rec: 01/23/19 17:44 DL [email or web address]) Shoulder Strength Shoulder Manual Muscle Testing Right Flexion 5 Normal Extension 5 Normal Abduction (C5) 5 Normal Left Flexion 5 Normal Extension 5 Normal Abduction (C5) 5 Normal Elbow/Forearm Strength Elbow and Forearm Manual Muscle Testing Right Flexion (C6) 5 Normal Extension (C7) 5 Normal Pronation 5 Normal Supination 5 Normal Left Flexion (C6) 5 Normal Extension (C7) 4+ Good+ Pronation 5 Normal Supination 5 Normal Wrist Strength Wrist Manual Muscle Testing Right Flexion (C7) 5 Normal Extension (C6) 5 Normal Left Flexion (C7) 5 Normal Extension (C6) 5 Normal Hand Branch Administrator/Pinch Strength Hand Dominance Hand Dominance Right Hip Strength Hip Manual Muscle Testing Right Flexion (L2) 5 Normal Extension (S1) 5 Normal Abduction 5 Normal Left Flexion (L2) 5 Normal Abduction 5 Normal Adduction 5 Normal Knee Strength Knee Manual Muscle Testing Right Flexion (S2) 5 Normal Extension (L3) 5 Normal Left Flexion (S2) 5 Normal Extension (L3) 5 Normal Ankle/Foot Strength Ankle and Foot Manual Muscle Testing Right Dorsiflexion (L4) 5 Normal Plantarflexion (S1) 4 Good Comments PF tested standing Left Dorsiflexion (L4) 5 Normal Plantarflexion (S1) 4 Good Comments PF tested standing PT-OP-T Assessment and Plan Start: 01/23/19 16:49 Freq: Status: Active Protocol: Document 01/23/19 15:20 [facility] (Rec: 01/23/19 17:44 [facility] [email or web address]) Physical Therapy Assessment Rehab Potential Rehabilitation Potential Good Evaluation Complexity Number of Personal Factors/Comorbidities 1-2 Number of Body Systems Impaired 4 or More Clinical Presentation at Evaluation Evolving Impairments Impairments Activity Tolerance Balance Coordination Functional Activities Gait Pain Strength Tone Other Concerns Fall Risk increased risk, hx of falls Goals Four Impairment Decreased gait tolerance, able to walk about 200 feet before needing to sit Short Term Goal (STG) Increase her gait tolerance to allow for ambulating 500 feet before needing a seated rest break STG Duration 4 weeks Jail Goal (LTG) Increase her gait tolerance to allow for going shopping with her Sister LTG Duration 8 weeks Three Impairment Decreased activity tolerance, can only stand for 5-7 min Short Term Goal (STG) Increase her activity tolerance to allow for standing at home for 15 min at a time STG Duration 4 weeks Jail Goal (LTG) Increase her activity tolerance to allow for standing 30 min at a time at home LTG Duration 8 weeks Two Impairment Decreased standing balance, Bell Score 46/56 Short Term Goal (STG) Increase Bell Score to 48/56 STG Duration 4 weeks Chemistry Professor Goal (LTG) Increase Bell Score to 50/56 LTG Duration 8 weeks One Impairment Decreased LE strength Short Term Goal (STG) Increase LE strength to 5/5 STG Duration 4 weeks Assessment Summary Assessment Candy presents with impairments related to her MS exacerbation over the winter and prolonged decreased activity. She is motivated to increase her activity level. Her nerve pain in her UE's and LE's appear to be a factor in her decreased activity tolerance as well as her tremors. She is a good candidate for physical therapy to address the deficits noted on evaluation. I anticipate her exercises will need to be progressed slowly to avoid over-fatigue. Physical Therapy Plan Frequency and Duration Frequency of Treatment 2x/Week Duration of Treatment 8 weeks Plan of Care Start Date 01/23/19 Plan of Care End Date 03/20/19 Therapeutic Interventions Therapeutic Interventions Balance Training Coordination Training Gait Training Home Exercise Program Neuromuscular Re-education Patient/Caregiver Education Self-Care/Home Management Therapeutic Activities Therapeutic Exercises Next Visit Focus/Plan Next Note Type Treatment Note Next Visit Plan start on recumbent bike, advance exercises slowly to prevent over-fatigue, may need to start with 30 min treatments than advance to 45 min as she tolerates
--- NOTE | 2019-01-23 16:20 | PT.OPPOC ---
Current Diagnoses Multiple sclerosis (01/23/19) Unsteadiness on feet (01/23/19) Weakness (01/23/19) Provider Visit Care Team Role Provider Type Veronica Guerrero DO Attending Provider Physician Primary Care Provider Specialty: Family Practice Address: [address] [place] [address], [id number] Email: [email or web address] Plan Of Care PT-OP-T Assessment and Plan Start: 01/23/19 16:49 Freq: Status: Active Protocol: Document 01/23/19 15:20 DLM (Rec: 01/23/19 17:44 DLM [email or web address]) Physical Therapy Assessment Rehab Potential Rehabilitation Potential Good Evaluation Complexity Number of Personal Factors/Comorbidities 1-2 Number of Body Systems Impaired 4 or More Clinical Presentation at Evaluation Evolving Impairments Impairments Activity Tolerance Balance Coordination Functional Activities Gait Pain Strength Tone Other Concerns Fall Risk increased risk, hx of falls Goals Four Impairment Decreased gait tolerance, able to walk about 200 feet before needing to sit Short Term Goal (STG) Increase her gait tolerance to allow for ambulating 500 feet before needing a seated rest break STG Duration 4 weeks Jail Goal (LTG) Increase her gait tolerance to allow for going shopping with her Sister LTG Duration 8 weeks Three Impairment Decreased activity tolerance, can only stand for 5-7 min Short Term Goal (STG) Increase her activity tolerance to allow for standing at home for 15 min at a time STG Duration 4 weeks Associate Professor Goal (LTG) Increase her activity tolerance to allow for standing 30 min at a time at home LTG Duration 8 weeks Two Impairment Decreased standing balance, Bell Score 46/56 Short Term Goal (STG) Increase Bell Score to 48/56 STG Duration 4 weeks Jail Goal (LTG) Increase Bell Score to 50/56 LTG Duration 8 weeks One Impairment Decreased LE strength Short Term Goal (STG) Increase LE strength to 5/5 STG Duration 4 weeks Assessment Summary Assessment Candy presents with impairments related to her MS exacerbation over the winter and prolonged decreased activity. She is motivated to increase her activity level. Her nerve pain in her UE's and LE's appear to be a factor in her decreased activity tolerance as well as her tremors. She is a good candidate for physical therapy to address the deficits noted on evaluation. I anticipate her exercises will need to be progressed slowly to avoid over-fatigue. Physical Therapy Plan Frequency and Duration Frequency of Treatment 2x/Week Duration of Treatment 8 weeks Plan of Care Start Date 01/23/19 Plan of Care End Date 03/20/19 Therapeutic Interventions Therapeutic Interventions Balance Training Coordination Training Gait Training Home Exercise Program Neuromuscular Re-education Patient/Caregiver Education Self-Care/Home Management Therapeutic Activities Therapeutic Exercises Next Visit Focus/Plan Next Note Type Treatment Note Next Visit Plan start on recumbent bike, advance exercises slowly to prevent over-fatigue, may need to start with 30 min treatments than advance to 45 min as she tolerates Plan of Care Dates Plan of Care Start Date 01/23/19 Plan of Care End Date 03/20/19 Please Sign and Return: I have reviewed this Plan of Care and certify that the skilled therapy services above are required to meet the patient?s needs. Physician Signature Date Printed Name and Credentials Clinical Instructor Signature Printed Name and Credentials
--- NOTE | 2019-01-30 16:44 | PT.OTN ---
Current Diagnoses Multiple sclerosis (01/30/19) Weakness (01/30/19) Physical Therapy Treatment Note PT-OP-A Visit Information Start: 01/23/19 16:49 Freq: Status: Active Protocol: Document 01/30/19 16:38 EA (Rec: 01/30/19 16:41 EA [id number]) Out-Patient Physical Therapy Visit Information Visit Information Visit Type Treatment Note Visit Start Time 16:00 Visit Stop Time 16:35 Total Visit Minutes 35 Visit Number 2 PT-OP-B Current Condition Start: 01/23/19 16:49 Freq: Status: Active Protocol: Document 01/23/19 15:20 DLM (Rec: 01/23/19 17:44 DLM [id number]) Current Condition History of Current Condition Onset Date 12/25/18 Current Complaints weakness and tremors History of Current Condition She had a severe flare-up of her nerve pain in her arms and legs over the winter that made her bed ridden for weeks. She got very weak from being in bed so long. She has been out of bed now for 2.5- 3 months but her strength has been slow to improve. She still has some days with severe tremors that make her unable to leave the house. She gets tired fast. The pain in her feet make it hard to wear shoes. She was diagnosed with MS 13 years ago. Prior Treatments and Tests Physical Therapy in the past while living in [place] for her balance and back spasms both associated with her MS. Future Testing and Treatments Planned plans to try the yoga class at the [facility] that her Sister teaches Treatment Goals Patient/Caregiver Goals 1) Increase her strength 2) Be able to stand for 30 minutes 3) Be able to get out of the house more often 4) Decrease her tremors Prior Functional Status Baseline Function- ADL's Independent Baseline Function- Mobility Independent Baseline Function- Gait Independent gait with quad cane Baseline Function- Recreation/Hobbies Walks for exercise, road a recumbent bike in the past for exercise Baseline Function- Other Was helping take care of her Mother before she , moved to [place] from [place] after her divorce Current Functional Impairments (Reported) Functional Limitations- ADL's pain in her feet make it hard to wear shoes some days, takes a week to clean the house, has not been able to go shopping (Sister helps her) Functional Limitations- Mobility/Gait Independent with quad cane, can only stand for 5-7 minutes at a time, can only walk about 200 feet before having to sit and rest Functional Limitations- Recreation/ She drives when her tremors Hobbies are not too bad Functional Limitations- Other she goes for infusion treatments every 6 months now for MS treatment, she can only sleep for 5.5 hours at a time then has to take a nap later in the day Personal Factors Other Personal Factors That May Effect History of depression which is Therapy/Recovery being treated, history of falls with injury but none recently per pt report, retina impairments that effect her vision PT-OP-C Subjective Start: 01/23/19 16:49 Freq: Status: Active Protocol: Document 01/30/19 16:38 EA (Rec: 01/30/19 16:41 EA [id number]) OP-PT Subjective Patient Comments Patient Comments Pt reports would like to try 30 mins of PT initially jsut to see how her body reacts. PT-OP-D Balance Start: 01/23/19 16:49 Freq: Status: Active Protocol: Document 01/23/19 15:20 DLM (Rec: 01/23/19 17:44 DLM [email or web address]) OP-PT Balance Assessment Sitting Balance Static Sitting Balance Ability Normal Dynamic Sitting Balance Ability Good Standing Balance Static Standing Balance Ability Fair Dynamic Standing Balance Ability Fair Device Used none during testing Standing Balance Comments uses quad cane for gait, has 4WW to use on her bad days Balance Tests Single Limb Standing Single Limb- Right 3-5 sec Single Limb- Left 3-5 sec with more sway than right Semi-Tandem Standing Semi-Tandem Standing Balance can hold with wider base of support, unable to hold if foot touching other Tandem Tandem Standing unable to hold Bell Balance Assessment Evaluation Sitting to Standing Ability Independent w/out Hands Unsupported Stance Safely- 2 minutes Sitting Unsupported, Feet on Floor Safely- 2 minutes Standing to Sitting Ability Safely, Minimal Hand Use Transfer Ability Safely, Minimal Hand Use Unsupported Stance- Eyes Closed Supervision, 10 seconds Unsupported Stance- Eyes Open Independent, 1 minute Reaching Forward Standing Confidently, 10 inches Pick- Up Object From Floor Within 2 inches, Unable Look Behind Shoulder - Standing Shifts Weight Well Turning 360 Degrees Turns slowly, but safely Unsupported Stance, Alternating Feet on 4 Steps w/Supervision Stair Unsupported Tandem Stance Holds Tandem- 30 seconds Unilateral Leg Stance Lifts Leg/Holds > 3 secs Total Score Bell Total Score (out of 56 points) 46 Bell Impairment Rating 1 to 19% Impaired (Score 45-55 ) William Fall Scale Copyright Permission Ntaaliia JM, Nataliia RM, Bj SJ. Development of a scale to identify the fall- prone patient. Can J Aging 1989;8;366-7. Anny William (2009). Preventing patient falls. (2nd ed). [place]: [place]. PT-OP-E Functional Tests Start: 01/23/19 16:49 Freq: Status: Active Protocol: Document 01/23/19 15:20 DLM (Rec: 01/23/19 17:44 DLM [email or web address]) Functional Tests Five Times Sit to Stand Test Score 20 sec, 17 sec Comments no use of UE's PT-OP-G Mobility & Gait Start: 01/23/19 16:49 Freq: Status: Active Protocol: Document 01/23/19 15:20 DLM (Rec: 01/23/19 17:44 DLM [email or web address]) OP Mobility Evaluation Bed Mobility Rolling Independent Supine to and from Sit Independent Transfers Sit to Stand Independent without UE support Bed to Chair Transfers Independent OP Gait Assessment Gait Gait Assistance Required: Independent Distance (Feet) 150 Assistive Devices Assistive Device Small Based Quad Cane Gait Deviations General Gait Pattern Ataxic Decreased Stride Length Wide Based Gait Factors Limiting Gait Function Factors Limiting Gait Function Abnormal Tonal Influences Decreased Activity Tolerance Poor Balance PT-OP-H Neuro Start: 01/23/19 16:49 Freq: Status: Active Protocol: Document 01/23/19 15:20 DLM (Rec: 01/23/19 17:44 DLM [email or web address]) Coordination Evaluation Lower Extremity Tests Left Foot Tapping Test Moderate Impairment Drawing a [place] w/Foot Test Moderate Impairment Right Foot Tapping Test Moderate Impairment Drawing a [place] w/Foot Test Moderate Impairment Muscle Tone Tone Assessment Right Lower Extremity Muscle Tone Comments tremors worse with movement and muscle testing, throughout body Left Lower Extremity Muscle Tone Comments tremors worse with movement and muscle testing, throughout body PT-OP-K Range of Motion Start: 01/23/19 16:49 Freq: Status: Active Protocol: Document 01/23/19 15:20 DLM (Rec: 01/23/19 17:44 DLM [email or web address]) Shoulder Goniometric Range of Motion Shoulder Measured in Degrees Right Active Shoulder ROM WFL Yes Left Active Shoulder ROM WFL Yes Hip Goniometric Range of Motion Hip Measured in Degrees Right Active Hip ROM WFL Yes Left Active Hip ROM WFL Yes PT-OP-M Strength Start: 01/23/19 16:49 Freq: Status: Active Protocol: Document 01/23/19 15:20 DLM (Rec: 01/23/19 17:44 DLM [email or web address]) Shoulder Strength Shoulder Manual Muscle Testing Right Flexion 5 Normal Extension 5 Normal Abduction (C5) 5 Normal Left Flexion 5 Normal Extension 5 Normal Abduction (C5) 5 Normal Elbow/Forearm Strength Elbow and Forearm Manual Muscle Testing Right Flexion (C6) 5 Normal Extension (C7) 5 Normal Pronation 5 Normal Supination 5 Normal Left Flexion (C6) 5 Normal Extension (C7) 4+ Good+ Pronation 5 Normal Supination 5 Normal Wrist Strength Wrist Manual Muscle Testing Right Flexion (C7) 5 Normal Extension (C6) 5 Normal Left Flexion (C7) 5 Normal Extension (C6) 5 Normal Hand Driver License Examiner/Pinch Strength Hand Dominance Hand Dominance Right Hip Strength Hip Manual Muscle Testing Right Flexion (L2) 5 Normal Extension (S1) 5 Normal Abduction 5 Normal Left Flexion (L2) 5 Normal Abduction 5 Normal Adduction 5 Normal Knee Strength Knee Manual Muscle Testing Right Flexion (S2) 5 Normal Extension (L3) 5 Normal Left Flexion (S2) 5 Normal Extension (L3) 5 Normal Ankle/Foot Strength Ankle and Foot Manual Muscle Testing Right Dorsiflexion (L4) 5 Normal Plantarflexion (S1) 4 Good Comments PF tested standing Left Dorsiflexion (L4) 5 Normal Plantarflexion (S1) 4 Good Comments PF tested standing PT-OP-Q Treatments Start: 01/23/19 16:49 Freq: Status: Active Protocol: Document 01/30/19 16:41 EA (Rec: 01/30/19 16:43 EA [id number]) Cardio Equipment Recumbent Stepper (Sci-Fit) Duration (Minutes) 10 Resistance 1 Gym Equipment Shuttle Recovery Unilateral Heel Raises Resistance 1 cord Shuttle Recovery Platform Stable Reps/Time x 20 reps Bilateral Squats Resistance 2 cords Shuttle Recovery Platform Stable Reps/Time x 20 reps Shuttle Balance 1 Details WBOS/NBOS/ tandem stance with arm arm challenge Reps/Duration x 12 mins Comments CGA PT-OP-T Assessment and Plan Start: 01/23/19 16:49 Freq: Status: Active Protocol: Document 01/30/19 16:38 EA (Rec: 01/30/19 16:41 EA [id number]) Physical Therapy Assessment Assessment Summary Assessment Tolerated treatment well but requires frequent rest due to SOB and valsalva. Physical Therapy Plan Next Visit Focus/Plan Next Note Type Treatment Note Next Visit Plan UE strengthening/flexibility addition
--- NOTE | 2019-06-02 14:17 | PT.OPDS ---
Current Diagnoses Multiple sclerosis (01/30/19) Weakness (01/30/19) Provider Visit Care Team Role Provider Type Veronica Guerrero DO Attending Provider Physician Primary Care Provider Specialty: Family Practice Address: [address] [place] [address], [address], [place], [address] Email: [email or web address] Visit Number Visit Number 2 Discharge Summary PT-OP-B Current Condition Start: 01/23/19 16:49 Freq: Status: Active Protocol: Document 01/23/19 15:20 DLM (Rec: 01/23/19 17:44 DLM [email or web address]) Current Condition History of Current Condition Onset Date 12/25/18 Current Complaints weakness and tremors History of Current Condition She had a severe flare-up of her nerve pain in her arms and legs over the winter that made her bed ridden for weeks. She got very weak from being in bed so long. She has been out of bed now for 2.5- 3 months but her strength has been slow to improve. She still has some days with severe tremors that make her unable to leave the house. She gets tired fast. The pain in her feet make it hard to wear shoes. She was diagnosed with MS 13 years ago. Prior Treatments and Tests Physical Therapy in the past while living in [place] for her balance and back spasms both associated with her MS. Future Testing and Treatments Planned plans to try the yoga class at the [facility] that her Sister teaches Treatment Goals Patient/Caregiver Goals 1) Increase her strength 2) Be able to stand for 30 minutes 3) Be able to get out of the house more often 4) Decrease her tremors Prior Functional Status Baseline Function- ADL's Independent Baseline Function- Mobility Independent Baseline Function- Gait Independent gait with quad cane Baseline Function- Recreation/Hobbies Walks for exercise, road a recumbent bike in the past for exercise Baseline Function- Other Was helping take care of her Mother before she , moved to [place] from [place] after her divorce Current Functional Impairments (Reported) Functional Limitations- ADL's pain in her feet make it hard to wear shoes some days, takes a week to clean the house, has not been able to go shopping (Sister helps her) Functional Limitations- Mobility/Gait Independent with quad cane, can only stand for 5-7 minutes at a time, can only walk about 200 feet before having to sit and rest Functional Limitations- Recreation/ She drives when her tremors Hobbies are not too bad Functional Limitations- Other she goes for infusion treatments every 6 months now for MS treatment, she can only sleep for 5.5 hours at a time then has to take a nap later in the day Personal Factors Other Personal Factors That May Effect History of depression which is Therapy/Recovery being treated, history of falls with injury but none recently per pt report, retina impairments that effect her vision PT-OP-C Subjective Start: 01/23/19 16:49 Freq: Status: Active Protocol: Document 06/02/19 14:13 EA (Rec: 06/02/19 14:17 EA [id number]) OP-PT Subjective Patient Comments Patient Comments Patient is discharge today after cancelling all care plan scheduled appointments on the last week of January. PT-OP-D Balance Start: 01/23/19 16:49 Freq: Status: Active Protocol: Document 01/23/19 15:20 DLM (Rec: 01/23/19 17:44 DLM [email or web address]) OP-PT Balance Assessment Sitting Balance Static Sitting Balance Ability Normal Dynamic Sitting Balance Ability Good Standing Balance Static Standing Balance Ability Fair Dynamic Standing Balance Ability Fair Device Used none during testing Standing Balance Comments uses quad cane for gait, has 4WW to use on her bad days Balance Tests Single Limb Standing Single Limb- Right 3-5 sec Single Limb- Left 3-5 sec with more sway than right Semi-Tandem Standing Semi-Tandem Standing Balance can hold with wider base of support, unable to hold if foot touching other Tandem Tandem Standing unable to hold Bell Balance Assessment Evaluation Sitting to Standing Ability Independent w/out Hands Unsupported Stance Safely- 2 minutes Sitting Unsupported, Feet on Floor Safely- 2 minutes Standing to Sitting Ability Safely, Minimal Hand Use Transfer Ability Safely, Minimal Hand Use Unsupported Stance- Eyes Closed Supervision, 10 seconds Unsupported Stance- Eyes Open Independent, 1 minute Reaching Forward Standing Confidently, 10 inches Pick- Up Object From Floor Within 2 inches, Unable Look Behind Shoulder - Standing Shifts Weight Well Turning 360 Degrees Turns slowly, but safely Unsupported Stance, Alternating Feet on 4 Steps w/Supervision Stair Unsupported Tandem Stance Holds Tandem- 30 seconds Unilateral Leg Stance Lifts Leg/Holds > 3 secs Total Score Bell Total Score (out of 56 points) 46 Bell Impairment Rating 1 to 19% Impaired (Score 45-55 ) William Fall Scale Copyright Permission PT-OP-E Functional Tests Start: 01/23/19 16:49 Freq: Status: Active Protocol: Document 01/23/19 15:20 DLM (Rec: 01/23/19 17:44 DLM [email or web address]) Functional Tests Five Times Sit to Stand Test Score 20 sec, 17 sec Comments no use of UE's PT-OP-G Mobility & Gait Start: 01/23/19 16:49 Freq: Status: Active Protocol: Document 01/23/19 15:20 DLM (Rec: 01/23/19 17:44 DL [email or web address]) OP Mobility Evaluation Bed Mobility Rolling Independent Supine to and from Sit Independent Transfers Sit to Stand Independent without UE support Bed to Chair Transfers Independent OP Gait Assessment Gait Gait Assistance Required: Independent Distance (Feet) 150 Assistive Devices Assistive Device Small Based Quad Cane Gait Deviations General Gait Pattern Ataxic Decreased Stride Length Wide Based Gait Factors Limiting Gait Function Factors Limiting Gait Function Abnormal Tonal Influences Decreased Activity Tolerance Poor Balance PT-OP-H Neuro Start: 01/23/19 16:49 Freq: Status: Active Protocol: Document 01/23/19 15:20 DLM (Rec: 01/23/19 17:44 DL [email or web address]) Coordination Evaluation Lower Extremity Tests Left Foot Tapping Test Moderate Impairment Drawing a [place] w/Foot Test Moderate Impairment Right Foot Tapping Test Moderate Impairment Drawing a [place] w/Foot Test Moderate Impairment Muscle Tone Tone Assessment Right Lower Extremity Muscle Tone Comments tremors worse with movement and muscle testing, throughout body Left Lower Extremity Muscle Tone Comments tremors worse with movement and muscle testing, throughout body PT-OP-K Range of Motion Start: 01/23/19 16:49 Freq: Status: Active Protocol: Document 01/23/19 15:20 DLM (Rec: 01/23/19 17:44 DLM [email or web address]) Shoulder Goniometric Range of Motion Shoulder Right Active Shoulder ROM WFL Yes Left Active Shoulder ROM WFL Yes Hip Goniometric Range of Motion Hip Right Active Hip ROM WFL Yes Left Active Hip ROM WFL Yes PT-OP-M Strength Start: 01/23/19 16:49 Freq: Status: Active Protocol: Document 01/23/19 15:20 DLM (Rec: 01/23/19 17:44 DLM [email or web address]) Shoulder Strength Shoulder Manual Muscle Testing Right Flexion 5 Normal Extension 5 Normal Abduction (C5) 5 Normal Left Flexion 5 Normal Extension 5 Normal Abduction (C5) 5 Normal Elbow/Forearm Strength Elbow and Forearm Manual Muscle Testing Right Flexion (C6) 5 Normal Extension (C7) 5 Normal Pronation 5 Normal Supination 5 Normal Left Flexion (C6) 5 Normal Extension (C7) 4+ Good+ Pronation 5 Normal Supination 5 Normal Wrist Strength Wrist Manual Muscle Testing Right Flexion (C7) 5 Normal Extension (C6) 5 Normal Left Flexion (C7) 5 Normal Extension (C6) 5 Normal Hand [employer]er/Pinch Strength Hand Dominance Hand Dominance Right Hip Strength Hip Manual Muscle Testing Right Flexion (L2) 5 Normal Extension (S1) 5 Normal Abduction 5 Normal Left Flexion (L2) 5 Normal Abduction 5 Normal Adduction 5 Normal Knee Strength Knee Manual Muscle Testing Right Flexion (S2) 5 Normal Extension (L3) 5 Normal Left Flexion (S2) 5 Normal Extension (L3) 5 Normal Ankle/Foot Strength Ankle and Foot Manual Muscle Testing Right Dorsiflexion (L4) 5 Normal Plantarflexion (S1) 4 Good Comments PF tested standing Left Dorsiflexion (L4) 5 Normal Plantarflexion (S1) 4 Good Comments PF tested standing PT-OP-T Assessment and Plan Start: 01/23/19 16:49 Freq: Status: Active Protocol: Document 06/02/19 14:13 EA (Rec: 06/02/19 14:17 EA [id number]) Physical Therapy Assessment Assessment Summary Assessment Discharge due to none compliant with scheduled appointments. Physical Therapy Plan Discharge Physical Therapy Discharge Reasons No Longer Attending PT
== END 2019-06-06 10:06 | disposition home or self-care (01) ==
LOC: PHYS 16:00
PROVIDERS: PCP Family Medicine; Visit Provider Family Medicine
DX: R53.1 Weakness (principal); G35 Multiple sclerosis
CPT/HCPCS: 97110; 97162

== ENCOUNTER → 2019-02-19 06:44 | Outpatient (CLI) | payer MEDICARE, SELFPAY ==
[2019-02-19 07:25] LABS: Add Manual Diff / Slide Review NO; Basophils Absolute Auto 100 /uL (0-100); Eosinophils Absolute Auto 100 /uL (0-450); Eosinophils Percent Auto 1.4 % (2-4); Hematocrit 42.6 % (36-46); Hemoglobin 15.2 g/dL (12.0-16.0); Lymphocytes Absolute Auto 1100 /uL (1100-4500); Lymphocytes Percent Auto 16.2 % (25-40); Mean Corpuscular HGB Conc 35.7 % (30-36); Mean Corpuscular Hemoglobin 34.1 PG (26-34); Mean Corpuscular Volume 95.5 fL (80-100); Monocytes Absolute Auto 600 /uL (0-900); Monocytes Percent Auto 9.2 % (3-14); Neutrophils Absolute Auto 4800 /uL (1500-7000); Neutrophils Percent Auto 72.2 % (50-75); Platelet Count 330 X10^3/uL (150-400); Red Blood Cell Count 4.46 X10^6/uL (4.0-5.2); Red Cell Distribution Width 12.3 % (11.6-14.8); White Blood Cell Count 6.7 X10^3/uL (4.5-11.0)
[2019-02-19 07:36] LABS: Alanine Aminotransferase 28 IU/L (9-52); Albumin 4.6 g/dL (3.5-5.0); Albumin Globulin Ratio 1.6 (1.0-2.8); Alkaline Phosphatase 60 U/L (38-126); Aspartate Aminotransferase 19 IU/L (14-36); BUN Creatinine Ratio 18.9 (6-22); Bilirubin Total 0.4 mg/dL (0.2-1.3); Blood Urea Nitrogen 17 mg/dL (7-17); Calcium 9.3 mg/dL (8.4-10.2); Carbon Dioxide 25 mmol/L (22-32); Chloride 104 mmol/L (98-107); Cholesterol 321 mg/dL (140-199); Estimated Glomerular Filt Rate > 60.0 mL/min (>60); Globulin 2.8 g/dL (1.7-4.1); Glucose 135 mg/dL (80-110); HDL Cholesterol 37 mg/dL (40-60); HEMOLYSIS < 15 (0-50); Potassium 3.9 mmol/L (3.4-5.1); Sodium 140 mmol/L (137-145); Total Protein 7.4 g/dL (6.3-8.2)
[2019-02-19 07:53] LABS: Triglycerides 1000 mg/dL (35-150)
[2019-02-19 09:08] LABS: LDL Cholesterol Direct 51 mg/dL (<100)
== END ==
PROVIDERS: PCP Family Medicine; Visit Provider Family Medicine
DX: R73.03 Prediabetes (principal); E78.2 Mixed hyperlipidemia
CPT/HCPCS: 36415; 80053; 80061; 83721; 85025

== ENCOUNTER → 2019-03-21 12:00 | Outpatient (CLI) | payer MEDICARE, SELFPAY ==
--- NOTE | 2019-03-21 12:03 | DI.RAD.S_ITS ---
PROCEDURE: XR RIBS LT 2V INDICATIONS: pain TECHNIQUE: 2 views of the left ribs were acquired. COMPARISON: None. FINDINGS: Surgical changes and devices: None. Bones and chest wall: No fractures or dislocations. No suspicious bony lesions. Overlying soft tissues appear unremarkable. Lungs and pleura: The visualized lung appears clear. No pleural effusions or pneumothorax are visible. IMPRESSION: No source of free pain is found. Differential unusual symptoms persist followup by nuclear medicine bone scan may be warranted. Dictated by: Ezequiel Bran M.D. on 03/21/2019 at 13:19 Approved by: Ezequiel Bran M.D. on 03/21/2019 at 13:19
== END ==
PROVIDERS: PCP Family Medicine; Visit Provider Family Medicine
DX: R07.81 Pleurodynia (principal)
CPT/HCPCS: 71100

== ENCOUNTER 2019-04-09 12:07 | Day surgery (SDC) | payer MEDICARE, SELFPAY ==
--- NOTE | 2019-04-09 | PATH_ITS ---
[facility] Accession Number: [id number] . 01 Material submitted: . PART A: gastrointestinal site - PREPYLORIC ANTRUM PART B: gastrointestinal site - GASTRIC BODY PART C: esophagus - DISTAL ESOPHAGUS PART D: rectum - RECTAL POLYP . 02 Diagnosis: A. Stomach, Prepyloric Antrum, Biopsy: Antral mucosa with no diagnostic abnormality. No evidence of Helicobacter on H/E stain. Negative for intestinal metaplasia. Negative for dysplasia and malignancy. . B. Stomach, Body, Biopsy: Body-type mucosa with no diagnostic abnormality. No evidence of Helicobacter on H/E stain. Negative for intestinal metaplasia. Negative for dysplasia and malignancy. . C. Distal Esophagus, Biopsies: Squamocolumnar junctional mucosa with no diagnostic abnormality. Negative for intestinal metaplasia. Negative for dysplasia and malignancy. . D. Rectum, Polyp, Biopsy: Hyperplastic polyp. [facility]/04/11/2019 . 02 Electronically signed: . Klaey Finley MD, Pathologist NPI- [id number] . 01 Gross description: . Part A: PREPYLORIC ANTRUM: Received in formalin is 1 fragment(s) of trevizo, soft tissue measuring 0.3 x 0.1 x 0.1 cm which is entirely submitted and submitted entirely in 1 cassette(s) Part B: GASTRIC BODY: Received in formalin are multiple fragment(s) of trevizo, soft tissue measuring 0.1 x 0.1 x 0.1 cm to 0.3 x 0.2 x 0.2 cm which is entirely submitted and submitted entirely in 1 cassette(s) Part C: DISTAL ESOPHAGUS: Received in formalin are 2 fragment(s) of trevizo, soft tissue measuring 0.1 x 0.1 x 0.1 cm to 0.2 x 0.1 x 0.1 cm which is entirely submitted and submitted entirely in 1 cassette(s) Part D: RECTAL POLYP: Received in formalin are multiple fragment(s) of trevizo, soft tissue measuring 0.2 x 0.2 x 0.2 cm to 0.5 x 0.5 x 0.3 cm which is entirely submitted and submitted entirely in 1 cassette(s) /[facility] /[facility] . 02 Pathologist provided ICD-10: R10.9 . 02 CPT . 497075, [id number], 930515, 390011 Performed at: 01 [facility] [address] [id number] MD Rojelio Sepulveda MD Phone: [phone] Performed at: 02 [facility] [place] [address] [place] [id number] MD Kaley Finley MD Phone: [phone]
[2019-04-09] MEDS: SODIUM CHLORIDE 0.9% 1,000 ML 200 ML IV (12:40)
[2019-04-09 12:45] VITALS: BP 123/89; PULSE 100; RESP 16; TEMP 36.3; O2SAT 97; BMI 27.2
[2019-04-09] MEDS: LACTATED RINGERS 1,000 ML 42 ML IV ×2 (13:00→14:37)
--- NOTE | 2019-04-09 13:29 | PM.HP.1 ---
History of Present Illness Date Patient Seen: 04/09/19 Time Patient Seen: 13:30 Chief complaint: [id number] Narrative: Pt seen and examined unchanged from recent clinic visit Patient History Medical History (Updated 04/21/18 @ 00:00 by ) Anxiety (Chronic 12/10/14) Depression (Chronic 12/10/14) Multiple sclerosis (Chronic 12/10/14) Tobacco use disorder (Chronic 12/10/14) Gastroesophageal reflux disease (Chronic 04/28/15) Prediabetes (Chronic 10/11/16) Mixed hyperlipidemia (Chronic 10/11/16) Insomnia due to other mental disorder (Chronic 10/11/16) Abnormal Pap smear of cervix (Acute) Anesthesia (Acute) Chronic back pain (Acute) Endometriosis (Acute ~1973) Fibroids (Acute ~1976) Surgical History (Updated 04/09/19 @ 12:54 by Constanza Sawant RN) S/P epidural steroid injection (Acute) History of tonsillectomy (~1958) Status post cholecystectomy (~2007) Status post hysterectomy (~1990) Family History (Updated 10/14/16 @ 00:00 by Veronica Guerrero DO) Mother Hyperlipidemia Alcoholism Anxiety Insomnia, unspecified type Hypertension Tobacco use disorder Macular degeneration Abdominal aortic aneurysm (AAA) without rupture Carotid artery disease, unspecified laterality Sister Hypertension High cholesterol Father No problems noted. Social History household members: none Smoking Status: Current every day smoker (1/2 pack per day) Family & Social History Family History (Updated 10/14/16 @ 00:00 by Veronica Guerrero DO) Mother Hyperlipidemia Alcoholism Anxiety Insomnia, unspecified type Hypertension Tobacco use disorder Macular degeneration Abdominal aortic aneurysm (AAA) without rupture Carotid artery disease, unspecified laterality Sister Hypertension High cholesterol Father No problems noted. Social History: household members none Tobacco & Substance use: Smoking Status Current every day smoker alcohol intake frequency 0-2 drinks per day Substance Use Type marijuana Meds Home Medications Medication Instructions Recorded Confirmed Type pravastatin 80 mg tablet 80 mg PO DAILY #90 tab 10/31/18 03/27/19 Rx ocrelizumab 30 mg/mL intravenous 600 mg IV [id number] 12/10/18 04/09/19 History solution Hemp PO 12/25/18 03/27/19 History fenofibrate 160 mg tablet 160 mg PO DAILY #30 tab 02/19/19 04/09/19 Rx carisoprodol 350 mg tablet 350 mg PO TID #90 tab 02/26/19 04/09/19 Rx buspirone 10 mg tablet 20 mg PO TID #180 tab MDD 60mg 03/19/19 04/09/19 Rx ketotifen 0.025 % (0.035 %) eye 1 drop EYE-BOTH BID ml 03/19/19 04/09/19 History drops paroxetine 30 mg tablet 60 mg PO QDAY #180 tab 03/19/19 04/09/19 Rx diazepam 10 mg tablet 10 mg PO .COMPLEX #120 tab 03/27/19 04/09/19 Rx diazepam 20 mg PO BEDTIME 04/09/19 04/09/19 History ergocalciferol (vitamin D2) 50,000 unit PO QWEEK 04/09/19 04/09/19 History [Vitamin D2] Allergies Allergy/AdvReac Type Severity Reaction Status Date / Time niacin [NIACIN] AdvReac Intermediate PASS OUT Verified 04/09/19 12:35 Exam Vital Signs (past 8 hours): - 04/09/19 12:45 Temperature 97.4 F L Pulse Rate 100 H Respiratory Rate 16 Blood Pressure 123/89 Pulse Oximetry 97 Oxygen Delivery Method Room Air
[2019-04-09 15:14] VITALS: BP 147/81; PULSE 73; RESP 17; TEMP 36.3
[2019-04-09 15:18] VITALS: BP 125/74; PULSE 74; RESP 12; O2SAT 95
[2019-04-09 15:23] VITALS: BP 136/96; PULSE 72; RESP 17; O2SAT 96
[2019-04-09 15:28] VITALS: BP 151/76; PULSE 67; RESP 12; O2SAT 97
[2019-04-09 15:41] VITALS: BP 145/83; PULSE 69; RESP 15; TEMP 36.6; O2SAT 96
--- NOTE | 2019-04-09 15:50 | PM.OP.ENDO ---
Operative Date/Time/Diagnoses Date of procedure: 04/09/19 Time of procedure: 15:50 Pre-op diagnosis: early satiety Over due for screening colonoscopy Post-op diagnosis: same Procedure & Clinicians Study performed: EGD with antral and gastric body and distal esophagus biopsy Complete colonoscopy with Rectal cold biopsy forcep polypectomy x 6 Same procedure as scheduled: Yes Indications: 63 yo woman presented with early satiety and poor ability to tolerate meals. Last colonoscopy over 5yrs ago with personal hx of colon polyps Surgeon: Tee Back Procedure Notes SCOAP/Timeout: completed Procedure in detail: Patient was taken to the operating room she was sedated. An anesthesiologist was utilized due to the patient's chronic benzodiazepine use. A time-out was completed Once adequately sedated on a propofol a mouth guard was placed. An endoscope was then easily passed through the oropharynx into the proximal esophagus the was then passed through the esophagus into the stomach into the pylorus the 1st portion of the duodenum was intubated. The mucosa of the duodenum appeared healthy without ulceration or other lesion. The papillae at the ampullary of Vater was not visualized. There was erythema noted in the pre-pyloric space on the mucosa-as a consequence several antral biopsies in this area were taken. The mucosa of the stomach body was somewhat atrophy with some speckling erythematous pattern -consequently this was biopsied as well. The scope was retroflexed there was a grade 2 Hill that -it was patulous and occasionally opened around the scope. The scope was then withdrawn into the distal esophagus -the hiatus was noted to be 40 cm from the incisors, the Z-line was perhaps 1/2 cm above. There was some salmon patch mucosa that was equivocal E above the Z-line. This was biopsied to evaluate for Lau's esophagus. The scope was then slowly withdrawn out of the remainder of the esophagus and no additional pathology was identified Next the placed and was paced in the decubitus position left side down. A digital rectal exam was performed without lesion. 160 cm colonoscope was advanced through the folds of the rectum and into the sigmoid colon. Became clear that the amount of insufflation was in adequate. Troubleshooting the scope we eventually had to remove it and withdraw the scope switching to a different colonoscope. This performed much better with adequate insufflation of the colon. The scope was then advanced again through the folds of the rectum navigate in the rectosigmoid junction and sigmoid colon. There is a spot on the sigmoid colon that took a tight band which was difficult to negotiate. But upon withdrawing the scope there was not a stricture in this area just tight curve. Scope was then advanced all the way to the cecum where the ileocecal valve was identified as well as the appendiceal orifice. Scope was then slowly withdrawn. There were no mucosal lesions identified. The area of the acute fold in the sigmoid colon was reinspected I was convinced it was not obstructing. Within the distal rectum there were multiple subtle polyps -which were likely hamartomatous polyp -I biopsied 6 of these and sent to pathology. There are several small residual polyp consistent in features to though sampled The scope was retroflexed in the distal rectum and no additional lesions were identified Scope withdrawal time: 12 minutes Specimen(s): other (1 antral biopsy 2 gastric body biopsy 3 distal esophagus 4 rectal polys ) Complications: none Impression: 1. Gastritis -biopsies pending 2 . Distal esophageal changes possibly consistent with Lau's -biopsies pending 3. Rectal polyps -awaiting pathology may be hamartomatous -if so next follow-up colonoscopy in 5 years due to prior history of other polyps, if all adenomas will need further polypectomy Recommendations: Colonscopy in 5 years
== END 2019-04-09 15:56 | disposition home or self-care (01) ==
PROVIDERS: PCP Family Medicine; Visit Provider Surgery
PROC: 0DJ08ZZ Inspection of Upper Intestinal Tract, Via Natural or Artificial Opening Endoscopic (ICD-10-PCS; CPT 43235; principal; 2019-04-09 13:15)
PROC: 0DJD8ZZ Inspection of Lower Intestinal Tract, Via Natural or Artificial Opening Endoscopic (ICD-10-PCS; CPT 45378; 2019-04-09 13:15)
DX: R68.81 Early satiety (principal); Z86.010 Personal history of colon polyps; F15.90 Other stimulant use, unspecified, uncomplicated; K29.70 Gastritis, unspecified, without bleeding; F17.210 Nicotine dependence, cigarettes, uncomplicated; F41.9 Anxiety disorder, unspecified; G35 Multiple sclerosis; K21.9 Gastro-esophageal reflux disease without esophagitis; R73.03 Prediabetes; E78.5 Hyperlipidemia, unspecified; K62.1 Rectal polyp
CPT/HCPCS: 45380; 43239; 88305; J1610; J2405; J2704

== ENCOUNTER → 2019-04-18 11:43 | Outpatient (CLI) | payer MEDICARE, SELFPAY ==
--- NOTE | 2019-04-18 11:47 | DI.CT.S_ITS ---
PROCEDURE: CT ABDOMEN PELVIS W CON INDICATIONS: early satiety TECHNIQUE: After the administration of oral and intravenous contrast, 5 mm thick sections acquired from the diaphragms to the symphysis. 5 mm thick coronal and sagittal reformats were performed. For radiation dose reduction, the following was used: automated exposure control, adjustment of mA and/or kV according to patient size. COMPARISON: None. FINDINGS: Image quality: Excellent. ABDOMEN: Lung bases: Mild bibasilar atelectasis. Heart size is normal. Solid organs: Liver is normal in size and enhancement. Gallbladder has been surgically removed. Mild prominence of the common bile duct which most likely is related to post cholecystectomy physiologic dilatation system. Remainder of the biliary system appears non-dilated. Pancreas enhances normally. Spleen is normal in size and enhancement. No adrenal nodules. Kidneys are normal in size and enhancement, without hydronephrosis. Small left extrarenal pelvis. A few tiny left greater than right renal hypodensities are too small to characterize but likely represent tiny renal cysts. The largest measures approximately 3 mm in diameter and the left kidney. Peritoneum and bowel: There is minimal circumferential wall thickening of the distal sigmoid colon and rectum which is favored to represent incomplete distention. Similar findings are noted in a short segment of small bowel in the left upper abdomen. Otherwise, the stomach, small bowel, and colon loops are normal in caliber and wall thickness. No free fluid or air. Normal appendix. Nodes and vessels: No retroperitoneal or mesenteric adenopathy. Aorta and inferior vena cava are normal in caliber. Scattered atherosclerotic calcifications. Miscellaneous: No ventral hernias. PELVIS: Genitourinary: Bladder wall thickness is normal. The uterus is not visualized and presumably surgically removed. Recommend correlation with past surgical history. Miscellaneous: No inguinal hernias or adenopathy. Bones: No suspicious bony lesions. No acute vertebral body compression fractures. IMPRESSION: 1. CT abdomen and pelvis without acute abnormalities, suspicious mass lesions, or adenopathy. No findings to explain patient's early satiety. 2. Mild circumferential wall thickening of the sigmoid colon and rectum, favored to represent incomplete distention. Consider further evaluation with direct visualization for screening colonoscopy if not recently performed. 3. Status post cholecystectomy. 4. Nonvisualization of the uterus. Recommend correlation with surgical history for prior hysterectomy. Dictated by: Erwin Reed M.D. on 04/18/2019 at 18:04 Approved by: Erwin Reed M.D. on 04/18/2019 at 18:18
[2019-04-18 12:38] LABS: BUN Creatinine Ratio 16.7 (6-22); Blood Urea Nitrogen 15 mg/dL (7-17); Estimated Glomerular Filt Rate > 60.0 mL/min (>60)
== END ==
LOC: CT 11:46 → LAB 11:52
PROVIDERS: PCP Family Medicine; Visit Provider Surgery
DX: R68.81 Early satiety (principal)
CPT/HCPCS: 36415; 74177; 82565; 84520; Q9967

== ENCOUNTER → 2019-05-08 14:34 | Outpatient (CLI) | payer MEDICARE, SELFPAY ==
--- NOTE | 2019-05-08 14:37 | DI.MG.S_ITS ---
BILATERAL DIGITAL SCREENING MAMMOGRAM 3D/2D WITH CAD: 05/08/2019 CLINICAL: Routine screening. Family history of breast cancer. Comparison is made to exams dated: 03/08/2018 mammogram, 12/07/2016 mammogram, and 09/24/2014 mammogram - [facility]. The tissue of both breasts is heterogeneously dense. This may lower the sensitivity of mammography. Current study was also evaluated with a Computer Aided Detection (CAD) system. No significant masses, calcifications, or other findings are seen in either breast. There has been no significant interval change. IMPRESSION: NEGATIVE There is no mammographic evidence of malignancy. A 1 year screening mammogram is recommended. This exam was interpreted at Station ID: [id number]. NOTE: For mammograms, a report in lay terms will be sent to the patient. Approximately 15% of breast malignancies will not be visualized mammographically. In the management of a palpable breast mass, a negative mammogram must not discourage biopsy of a clinically suspicious lesion. Electronically Signed By: Chandler verma/johnie:05/09/2019 12:20:32 letter sent: Normal Exam ACR BI-RADS Category 1: Negative [id number]
== END ==
PROVIDERS: PCP Family Medicine; Visit Provider Family Medicine
DX: Z12.31 Encounter for screening mammogram for malignant neoplasm of breast (principal); Z80.3 Family history of malignant neoplasm of breast; M85.88 Other specified disorders of bone density and structure, other site; Z78.0 Asymptomatic menopausal state; G35 Multiple sclerosis; F17.200 Nicotine dependence, unspecified, uncomplicated; Z90.722 Acquired absence of ovaries, bilateral
CPT/HCPCS: 77063; 77067; 77080

== ENCOUNTER → 2019-06-17 07:24 | Outpatient (CLI) | payer MEDICARE, SELFPAY ==
[2019-06-17 08:43] LABS: Hemoglobin A1C% w Est Avg Glu 5.3 % (4.0-6.0)
[2019-06-17 09:00] LABS: Blood Urea Nitrogen 18 mg/dL (7-17); Calcium 9.5 mg/dL (8.4-10.2); Carbon Dioxide 27 mmol/L (22-32); Chloride 104 mmol/L (98-107); Cholesterol 211 mg/dL (140-199); Estimated Glomerular Filt Rate > 60.0 mL/min (>60); Glucose 119 mg/dL (80-110); HDL Cholesterol 45 mg/dL (40-60); HEMOLYSIS < 15 (0-50); LDL Cholesterol Calculated 100 mg/dL (<100); Potassium 4.1 mmol/L (3.4-5.1); Sodium 140 mmol/L (137-145); Triglycerides 332 mg/dL (35-150)
[2019-06-21 17:25] LABS: ANA Screen, IFA NEGATIVE (NEGATIVE)
== END ==
PROVIDERS: PCP Family Medicine; Visit Provider Family Medicine
DX: R73.03 Prediabetes (principal); E78.2 Mixed hyperlipidemia; R21 Rash and other nonspecific skin eruption
CPT/HCPCS: 36415; 80048; 80061; 83036; 86038

== ENCOUNTER → 2019-12-08 12:02 | Outpatient (CLI) | payer MEDICARE, OTHER, SELFPAY ==
[2019-12-08 12:32] LABS: Add Manual Diff / Slide Review NO; Basophils Absolute Auto 100 /uL (0-100); Basophils Percent Auto 1.4 % (0-2); Eosinophils Absolute Auto 100 /uL (0-450); Eosinophils Percent Auto 1.4 % (2-4); Hematocrit 42.7 % (36-46); Hemoglobin 14.7 g/dL (12.0-16.0); Lymphocytes Absolute Auto 1200 /uL (1100-4500); Lymphocytes Percent Auto 24.1 % (25-40); Mean Corpuscular HGB Conc 34.5 % (30-36); Mean Corpuscular Hemoglobin 33.1 PG (26-34); Mean Corpuscular Volume 95.8 fL (80-100); Monocytes Absolute Auto 400 /uL (0-900); Monocytes Percent Auto 8.2 % (3-14); Neutrophils Absolute Auto 3200 /uL (1500-7000); Neutrophils Percent Auto 64.9 % (50-75); Platelet Count 262 X10^3/uL (150-400); Red Blood Cell Count 4.46 X10^6/uL (4.0-5.2); Red Cell Distribution Width 12.2 % (11.6-14.8); White Blood Cell Count 4.9 X10^3/uL (4.5-11.0)
[2019-12-08 12:47] LABS: Alanine Aminotransferase 21 IU/L (<35); Albumin 4.6 g/dL (3.5-5.0); Albumin Globulin Ratio 1.8 (1.0-2.8); Alkaline Phosphatase 48 U/L (38-126); Aspartate Aminotransferase 22 IU/L (14-36); Bilirubin Total 0.4 mg/dL (0.2-1.3); Blood Urea Nitrogen 24 mg/dL (7-17); Calcium 9.4 mg/dL (8.4-10.2); Carbon Dioxide 28 mmol/L (22-32); Chloride 104 mmol/L (98-107); Estimated Glomerular Filt Rate 55.6 mL/min (>60); Globulin 2.5 g/dL (1.7-4.1); Glucose 84 mg/dL (80-110); HEMOLYSIS < 15 (0-50); Sodium 141 mmol/L (137-145); Total Protein 7.1 g/dL (6.3-8.2)
[2019-12-08 13:19] LABS: Hemoglobin A1C% w Est Avg Glu 5.5 % (4.0-6.0)
[2019-12-08 13:35] LABS: Vitamin B12 Reflex MMA if <400 351 pg/mL (239-931)
[2019-12-08 16:10] LABS: Vitamin D 25 Hydroxy (D3) 59.9 ng/mL (30.0-100.0)
[2019-12-11 15:45] LABS: Methylmalonic Acid 342 nmol/L (87-318)
== END ==
PROVIDERS: PCP Family Medicine; Referring Provider Psychiatry & Neurology Neurology; Visit Provider Psychiatry & Neurology Neurology
DX: E55.9 Vitamin D deficiency, unspecified (principal); G35 Multiple sclerosis; R79.9 Abnormal finding of blood chemistry, unspecified; R20.2 Paresthesia of skin
CPT/HCPCS: 36415; 80053; 82306; 82607; 83036; 83921; 85025

== ENCOUNTER → 2020-05-21 08:19 | Outpatient (CLI) | payer MEDICARE, OTHER, SELFPAY ==
[2020-05-21 09:59] LABS: Add Manual Diff / Slide Review NO; Basophils Absolute Auto 0 /uL (0-100); Basophils Percent Auto 0.6 % (0-2); Eosinophils Absolute Auto 100 /uL (0-450); Eosinophils Percent Auto 1.1 % (2-4); Hematocrit 41.5 % (36-46); Hemoglobin 14.2 g/dL (12.0-16.0); Lymphocytes Absolute Auto 900 /uL (1100-4500); Lymphocytes Percent Auto 16.1 % (25-40); Mean Corpuscular HGB Conc 34.3 % (30-36); Mean Corpuscular Hemoglobin 33.1 PG (26-34); Mean Corpuscular Volume 96.6 fL (80-100); Monocytes Absolute Auto 500 /uL (0-900); Monocytes Percent Auto 8.3 % (3-14); Neutrophils Absolute Auto 4000 /uL (1500-7000); Neutrophils Percent Auto 73.9 % (50-75); Platelet Count 256 X10^3/uL (150-400); Red Cell Distribution Width 12.3 % (11.6-14.8); White Blood Cell Count 5.4 X10^3/uL (4.5-11.0)
[2020-05-21 10:41] LABS: Alanine Aminotransferase 30 IU/L (<35); Albumin 4.6 g/dL (3.5-5.0); Alkaline Phosphatase 45 U/L (38-126); Aspartate Aminotransferase 22 IU/L (14-36); BUN Creatinine Ratio 17.9 (6-22); Bilirubin Total 0.4 mg/dL (0.2-1.3); Blood Urea Nitrogen 17 mg/dL (7-17); Calcium 9.4 mg/dL (8.4-10.2); Carbon Dioxide 29 mmol/L (22-32); Chloride 104 mmol/L (98-107); Cholesterol 250 mg/dL (140-199); Globulin 2.3 g/dL (1.7-4.1); Glucose 110 mg/dL (80-110); HDL Cholesterol 43 mg/dL (40-60); HEMOLYSIS < 15 (0-50); Potassium 4.2 mmol/L (3.4-5.1); Sodium 140 mmol/L (137-145); Total Protein 6.9 g/dL (6.3-8.2); Triglycerides 417 mg/dL (35-150)
[2020-05-21 10:58] LABS: Vitamin D 25 Hydroxy (D3) 62.4 ng/mL (30.0-100.0)
[2020-05-21 11:29] LABS: Vitamin B12 372 pg/mL (239-931)
[2020-05-21 16:21] LABS: LDL Cholesterol Direct 101 mg/dL (<100)
[2020-05-23 14:36] LABS: Methylmalonic Acid,Serum 173 nmol/L (0-378)
== END ==
PROVIDERS: PCP Family Medicine; Referring Provider Family Medicine; Visit Provider Family Medicine
DX: E53.8 Deficiency of other specified B group vitamins (principal); E55.9 Vitamin D deficiency, unspecified; E78.2 Mixed hyperlipidemia; G35 Multiple sclerosis; R73.03 Prediabetes; Z79.899 Other long term (current) drug therapy; M85.80 Other specified disorders of bone density and structure, unspecified site
CPT/HCPCS: 36415; 80053; 80061; 82306; 82607; 83090; 83721; 83921; 85025

== ENCOUNTER → 2020-05-29 08:29 | Outpatient (CLI) | payer MEDICARE, OTHER, SELFPAY ==
--- NOTE | 2020-05-29 08:31 | DI.RAD.S_ITS ---
PROCEDURE: XR THORACIC SPINE 3V INDICATIONS: left sided back pain, rib fracture TECHNIQUE: 3 views of the thoracic spine were acquired. COMPARISON: [facility], CR, XR RIBS LT 2V, 03/21/2019, 12:04. FINDINGS: Bones: No fractures or dislocations. No suspicious bony lesions. 12 pairs of ribs are noted, and appear intact where visualized. The final pair of ribs is vestigial. Mild levoconvex scoliotic curvature is noted. Accentuated thoracic kyphosis is seen. Age-appropriate bony degenerative changes are seen. Soft tissues: No paravertebral stripe thickening. Left supraclavicular clips are seen. IMPRESSION: No displaced rib fractures are detected on this study. Age-appropriate degenerative changes are seen. Levoconvex scoliosis. Accentuated thoracic kyphosis. Dictated by: Junior Preciado M.D. on 05/29/2020 at 11:08 Approved by: Junior Preciado M.D. on 05/29/2020 at 11:10
== END ==
PROVIDERS: PCP Family Medicine; Referring Provider Family Medicine; Visit Provider Family Medicine
DX: M54.6 Pain in thoracic spine (principal); M40.204 Unspecified kyphosis, thoracic region; M47.814 Spondylosis without myelopathy or radiculopathy, thoracic region; G89.29 Other chronic pain; Z87.81 Personal history of (healed) traumatic fracture
CPT/HCPCS: 72072

== ENCOUNTER 2021-08-02 14:24 | Emergency (ER) | payer MEDICARE, OTHER, SELFPAY ==
[2021-08-02 14:33] VITALS: BP 154/75; PULSE 97; RESP 22; TEMP 36.4; O2SAT 95
--- NOTE | 2021-08-02 14:39 | DI.RAD.S_ITS ---
PROCEDURE: XR HIP W PEL IF DONE RT 2V INDICATIONS: pain TECHNIQUE: AP pelvis with lateral view(s) of the right hip(s). COMPARISON: None. FINDINGS: Bones: No fractures or dislocations. Asymmetric moderate right hip joint osteoarthritic changes are seen. No evidence of avascular necrosis of femoral head. Pelvic ring appears intact. No suspicious bony lesions. Soft tissues: The visualized bowel gas pattern is normal. No suspicious soft tissue calcifications. IMPRESSION: Asymmetric moderate right hip joint osteoarthritis. No fracture or dislocation. No evidence of avascular necrosis. Dictated by: Diego Forrest M.D. on 08/02/2021 at 14:59 Approved by: Diego Forrest M.D. on 08/02/2021 at 14:59
== END 2021-08-02 15:50 | disposition left against medical advice (07) ==
PROVIDERS: Emergency Provider Emergency Medicine; PCP Family Medicine
DX: M25.551 Pain in right hip (principal)
CPT/HCPCS: 73502; 99281

== ENCOUNTER → 2021-09-23 12:52 | Outpatient (CLI) | payer MEDICARE, OTHER, SELFPAY ==
--- NOTE | 2021-09-23 | DI.MRI.S_ITS ---
PROCEDURE: MR HIP RT WO CON INDICATIONS: Radiculopathy, lumbar region TECHNIQUE: Noncontrast coronal T1 spin echo and STIR through the bony pelvis. Coronal and axial T2 fast spin echo with fat saturation, sagittal T1 spin echo, and oblique axial T2 fast spin echo with fat saturation through the hip. COMPARISON: [facility], CR, XR HIP W PEL IF DONE RT 2V, 08/02/2021, 14:35. FINDINGS: Image quality: Excellent. Bones and joints: There is geographic curvilinear low T1/T2 signal intensity traversing the anterosuperior weight-bearing aspect of the right femoral head, spanning roughly 25 mm anteroposterior. There is severe surrounding ill-defined STIR signal elevation within the femoral head and neck. There is a moderate right hip joint effusion. The visualized lower lumbar spine appears normally aligned. Tendons and ligaments: The gluteus medius and minimus tendons appear intact, without associated muscle atrophy. The nearby proximal iliotibial band also appears intact. The iliopsoas tendon appears intact, without adjacent bursal fluid collections or evidence for impingement syndrome. The origin of the hamstring tendon is intact at the ischial tuberosity, as well as the associated sacrotuberous ligament. The straight and reflected heads of the rectus femoris muscle origin appear intact, as well as the conjoint tendon. The ligamentum teres appears intact where visualized. Labrum and cartilage: The acetabular labrum appears intact in the absence of intra-articular contrast. Cartilage surface of the femoral head appears of normal thickness. The alpha angle of the femur is within normal limits at less than 55 degrees. Soft tissues: Visualized muscles demonstrate normal bulk and internal signal. Quadratus femoris muscle demonstrates no internal edema to suggest ischiofemoral impingement. The proximal sciatic neurovascular bundle appears normal adjacent to the hamstring tendons. No free pelvic fluid. Bladder wall thickness is normal. Genitourinary structures and bowel loops appear normal where visualized. IMPRESSION: 1. 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 Right hip joint effusion. Dictated by: Lux Fraire M.D. on 09/23/2021 at 14:12 Approved by: Lux Fraire M.D. on 09/23/2021 at 14:15
--- NOTE | 2021-09-23 | DI.MRI.S_ITS ---
PROCEDURE: MR LUMBAR SPINE WO CON INDICATIONS: Radiculopathy, lumbar region TECHNIQUE: Noncontrast sagittal T1 spin echo and T2 fast echo, sagittal STIR, axial T1 and T2 fast spin echo through the lumbar spine. In cases with scoliosis, additional coronal T2 fast spin echo may be performed. COMPARISON: [facility], CR, XR LUMBAR SPINE 2 OR 3 VIEWS, 04/13/2021, 14:52. FINDINGS: Image quality: Excellent. Alignment and Curvature: 5 lumbar type vertebral bodies are present by plain film. Mild grade 1 anterolisthesis of L3 on L4. Mild grade 1 retrolisthesis of L4 on L5. Bone Marrow: Marrow is of normal overall signal. No acute vertebral body compression fractures. L2 hemangioma. Mild reactive signal throughout the endplates of the lumbar spine. Spinal Cord: Conus medullaris terminates at the L1-L2 disc space level. Visualized cord demonstrates normal signal and size. Paraspinous Soft Tissues: No paravertebral masses. T12-L1: Normal appearance. L1-L2: Normal appearance. L2-L3: Mild disc height loss and desiccation. Mild diffuse disc bulge. Mild facet and ligamentum flavum hypertrophy. Mild canal stenosis. Mild bilateral foraminal stenosis. L3-L4: Mild disc height loss and desiccation. Mild diffuse disc bulge with small superimposed broad-based right posterolateral protrusion. Mild facet and ligamentum flavum hypertrophy. Mild canal stenosis. Mild right foraminal stenosis. No left foraminal stenosis. L4-L5: Mild disc height loss and desiccation. Mild diffuse disc bulge. Mild facet and ligamentum flavum hypertrophy. Mild canal stenosis. Mild bilateral foraminal stenosis. L5-S1: Moderate disc height loss and desiccation. Mild diffuse disc bulge. Mild bilateral facet hypertrophy. No significant canal, or foraminal stenosis. IMPRESSION: 1. Multilevel degenerative disc and facet disease, as well as ligamentum flavum hypertrophy and epidural lipomatosis. 2. Mild multilevel canal and foraminal stenoses. No neural impingement. Dictated by: Lux Fraire M.D. on 09/23/2021 at 13:42 Approved by: Lux Fraire M.D. on 09/23/2021 at 13:45
== END ==
PROVIDERS: PCP Family Medicine; Referring Provider Physician Assistant; Visit Provider Physician Assistant
DX: M87.851 Other osteonecrosis, right femur (principal); M25.451 Effusion, right hip; M51.16 Intervertebral disc disorders with radiculopathy, lumbar region; M51.17 Intervertebral disc disorders with radiculopathy, lumbosacral region; M48.061 Spinal stenosis, lumbar region without neurogenic claudication
CPT/HCPCS: 72148; 73721

== ENCOUNTER 2021-10-12 06:34 | Observation (INO) | payer MEDICARE, OTHER, SELFPAY ==
[2021-10-12] VITALS (15 sets, daily range): BP systolic 131–189; BP diastolic 81–102; PULSE 60–80; RESP 14–23; TEMP 36.5–37.1; O2SAT 90–98; BMI 27.8
--- NOTE | 2021-10-12 06:42 | DI.CT.S_ITS ---
PROCEDURE: CT HEAD/BRAIN WO CON INDICATIONS: dizziness TECHNIQUE: Noncontrast 4.5 mm thick angled axial sections acquired from the foramen magnum to the vertex, with coronal and sagittal reformats. For radiation dose reduction, the following was used: automated exposure control, adjustment of mA and/or kV according to patient size. COMPARISON: [facility], MR, MR HEAD/BRAIN WO/W CON, 10/21/2018, 7:38. FINDINGS: Image quality: Excellent. CSF spaces: Basal cisterns are patent. No extra-axial fluid collections. The ventricles are symmetric in size and shape. Brain: No intracranial bleeds or masses. There is cerebral volume loss for age, with resultant ventricular and sulcal prominence. There are periventricular and deep white matter chronic small vessel ischemic changes. There is intracranial internal carotid artery atherosclerosis. Skull and face: Calvarium and visualized facial bones appear intact, without suspicious lesions. Sinuses: Visualized sinuses and mastoids are clear. IMPRESSION: No acute intracranial disease process. Dictated by: Opal Roque MD, PhD on 10/12/2021 at 8:09 Approved by: Opal Roque MD, PhD on 10/12/2021 at 8:11
--- NOTE | 2021-10-12 06:43 | ED_ITS ---
HPI - General Adult <Stas Dahl DO - Last Filed: 10/15/21 18:07> General Chief complaint: Dizziness Stated complaint: Dizzy Time Seen by Provider: 10/12/21 06:41 Source: patient and EMS Mode of arrival: EMS Limitations: no limitations History of Present Illness HPI narrative: Patient is a 66-year-old female. She has a history of anxiety. Is on multiple medications for this. She also has a history of MS. She states she went to bed last evening feeling normal. She woke up in the morning at approximately 0200 hours approximately 4-1/2 hours prior to arrival here in the emergency department stating that she was feeling dizzy. That it was not a room spinning sensation. She felt like she had just been on a ride that spun her around and she was trying to walk afterwards. She did have to go to the bathroom. She did make it to the bathroom. She made it back to bed. She went back to sleep for a couple more hours. Woke up again at 4 in the morning. [place] just the same as what she did 2 hours prior. She could not go to sleep afterwards. Has been lying in bed since then. She contacted EMS to bring her to the emergency department. She does have left-sided weakness but she normally has left-sided weakness because of her MS but she feels like the left side is more weak than normal. EMS stated that the patient's sister thought that she was slurring her words. There was also question about facial droop. EMS reports that they did not appreciate a facial droop nor slurring of words in route to the emergency department. Patient's blood sugar greater than 100. Related Data Home Medications Medication Instructions Recorded Confirmed ocrelizumab 30 mg/mL intravenous 600 mg IV [id number] 12/10/18 10/12/21 solution (Ocrevus) diclofenac sodium 0.1 % eye drops 1 drop EYE-BOTH BID ml 09/12/19 10/12/21 B12 See Rx Instructions .ROUTE .COMPLEX 08/09/21 10/12/21 Previous Rx's Medication Instructions Recorded disabled parking permit #1 ea 05/13/19 paroxetine HCl 30 mg tablet 60 mg PO QDAY #180 tab 05/18/21 pregabalin 50 mg capsule See Rx Instructions .ROUTE 06/07/21 .COMPLEX #270 cap carisoprodol 350 mg tablet See Rx Instructions .ROUTE 06/22/21 .COMPLEX #270 tab diazepam 5 mg tablet 5 mg PO TID PRN #270 tab 08/01/21 duloxetine 30 mg capsule,delayed 30 mg PO BID #180 cap 08/01/21 release ergocalciferol (vitamin D2) 1,250 50,000 unit PO QWEEK #12 cap 08/05/21 mcg (50,000 unit) capsule (Vitamin D2) trazodone 50 mg tablet 100 mg PO BEDTIME PRN #180 tab 08/18/21 fenofibrate 160 mg tablet 160 mg PO DAILY #90 tab 08/24/21 buspirone 10 mg tablet See Rx Instructions .ROUTE 09/05/21 .COMPLEX #540 tab aspirin 81 mg tablet,delayed 162 mg PO DAILY #60 tab 10/13/21 release atorvastatin 80 mg tablet 80 mg PO DAILY #60 tab 10/13/21 carvedilol 3.125 mg tablet (Coreg) 3.125 mg PO BID #60 tab 10/13/21 Allergies Allergy/AdvReac Type Severity Reaction Status Date / Time niacin [NIACIN] AdvReac Intermediate PASS OUT Verified 08/01/21 09:03 Review of Systems <Stas Dahl DO - Last Filed: 10/15/21 18:07> Constitutional Constitutional: Denies fever(s) and Denies headache(s) Eyes Eyes: Denies change in vision ENT Ears, Nose, Mouth, and Throat: Denies headache(s) Cardiovascular Cardiovascular: Denies chest pain and Denies dyspnea Respiratory Respiratory: Denies dyspnea Gastrointestinal Gastrointestinal: Denies abdominal pain Musculoskeletal Musculoskeletal: Reports system reviewed and no additional complaints, except as documented and Reports as per HPI Integumentary/Breasts Skin/Breast: Reports system reviewed and no additional complaints, except as documented and Reports as per HPI Neurologic Neurologic: Reports as per HPI and Denies headache(s) Psychiatric Psychiatric: Reports anxiety Hematologic/Lymphatic On Anticoagulants: No Allergic/Immunologic Allergic/Immunologic: Reports system reviewed and no additional complaints, except as documented Patient History <Stas Dahl DO - Last Filed: 10/15/21 18:07> Medical History Anesthesia Anxiety (12/10/14) Chronic back pain Chronic thoracic back pain Depression (12/10/14) Endometriosis (~1973) Fibroids (~1976) Gastroesophageal reflux disease (04/28/15) Insomnia due to other mental disorder (10/11/16) Left buttock pain Left rib fracture (~11/2014) Lower back pain Mixed hyperlipidemia (10/11/16) Multiple sclerosis, primary progressive (~02/2015) Osteopenia Overweight (BMI 25.0-29.9) Prediabetes (10/11/16) Rosacea blepharoconjunctivitis Segmental and somatic dysfunction of rib cage Sprain of left foot Tobacco use disorder (12/10/14) Surgical History History of tonsillectomy (~1958) S/P epidural steroid injection Status post cholecystectomy (~2007) Status post hysterectomy (~1990) Family History (Updated 05/29/20 @ 13:31 by Veronica Guerrero DO) Mother Hyperlipidemia Lung cancer Alcoholism Anxiety Insomnia, unspecified type Hypertension Tobacco use disorder Macular degeneration Abdominal aortic aneurysm (AAA) without rupture Carotid artery disease, unspecified laterality Sister Hypertension High cholesterol Father No problems noted. Sister Hyperlipidemia Hypertension Social History household members: none Smoking Status: Current every day smoker alcohol intake: former Smoking Status: Current every day smoker alcohol intake frequency: 0-2 drinks per day Substance Use Type: marijuana Exam <Stas Dahl DO - Last Filed: 10/15/21 18:07> Initial Vital Signs Initial Vital Signs: Vital Signs Temperature 98.1 F 10/12/21 06:25 Pulse Rate 72 10/12/21 06:25 Respiratory Rate 18 10/12/21 06:25 Blood Pressure 183/96 H 10/12/21 06:25 Pulse Oximetry 95 10/12/21 06:25 Const General: cooperative, healthy appearing, comfortable and No anxious HENMT Head: normal to inspection Face and sinus: normal facial exam Mouth: oral mucosae normal Eyes Pupils: PERRL EOM: EOM intact bilaterally Resp Effort & Inspection: normal respiratory effort Auscultation: clear to auscultation bilaterally Cardio Rate: regular rate Rhythm: regular rhythm GI Palpation: soft and No tender Skin General: no rashes or lesions noted Neuro General: patient alert, patient awake, patient oriented x3 and moves all extre mities Speech: speech normal Extrem General: normal to inspection and capillary refill normal Psych Appearance: grossly normal and well kempt <Ben Odell DO - Last Filed: 10/12/21 11:06> Initial Vital Signs Initial Vital Signs: Vital Signs Temperature 98.1 F 10/12/21 06:25 Pulse Rate 72 10/12/21 06:25 Respiratory Rate 18 10/12/21 06:25 Blood Pressure 183/96 H 10/12/21 06:25 Pulse Oximetry 95 10/12/21 06:25 Scores <Stas Dahl DO - Last Filed: 10/15/21 18:07> GCS [place] coma scale eye opening: Spontaneous Grace coma scale verbal response: Orientated Grace coma scale motor response: Obey commands Grace coma scale total score: 15 NIH Stroke Scale Level of Conciousness: Alert, keenly responsive Ask month/age: Answers both questions correctly. Open/close eyes, close hand: Performs both tasks correctly Best gaze horizontal: Normal Visual gu: No visual loss Facial palsy: Normal symetrical movement (Some right-sided facial droop with smile but this disappeared with patient asked to show teeth) Left arm drift: No drift for full 10 sec (Obviously weaker than right side) Right arm drift: No drift for full 10 sec Left leg drift: No drift for full 5 sec (Obviously weaker than right side) Right leg drift: No drift for full 5 sec Limb ataxia: Absent (Most difficulty with left leg however patient was able to perform this task) Sensory on face/arms/legs: Mild to moderate sensory loss, can tell touch (Decreased sensation light touch left arm compared to right no facial differences nor lower extremity differences) Best language: No aphasia, normal Dysarthria: Normal Extinction or inattention: No abnormality Total NIH Stroke scale score: 1 <Ben Odell DO - Last Filed: 10/12/21 11:06> GCS [place] coma scale total score: 15 NIH Stroke Scale Total NIH Stroke scale score: 1 Course <Stas Dahl DO - Last Filed: 10/15/21 18:07> Orders Ordered: Discontinued Medications Acetaminophen (Acetaminophen 325 Mg Tablet) 650 mg PO Q6HR PRN PRN Reason: Fever/Mild Pain (1-3) Amlodipine Besylate (Amlodipine 5 Mg Tablet) 2.5 mg PO DAILY NATALIE Aspirin (Aspirin Ec 81 Mg Tablet) 162 mg PO DAILY [facility] Last Admin: 10/13/21 09:46 Dose: 162 mg Documented by: Admin: 10/12/21 14:19 Dose: Not Given Documented by: ALBERTO Atorvastatin Calcium (Atorvastatin 20 Mg Tablet) 80 mg PO DAILY [facility] Last Admin: 10/13/21 09:56 Dose: 80 mg Documented by: ALBERTO Buspirone HCl (Buspirone 5 Mg Tablet) 20 mg PO TID [facility] Last Admin: 10/13/21 09:56 Dose: 20 mg Documented by: Admin: 10/12/21 21:15 Dose: Not Given Documented by: Admin: 10/12/21 16:00 Dose: 20 mg Documented by: ALBERTO Carisoprodol (Carisoprodol 350 Mg Tablet) 350 mg PO TID [facility] Last Admin: 10/13/21 10:34 Dose: Not Given Documented by: Admin: 10/12/21 21:14 Dose: 350 mg Documented by: Admin: 10/12/21 14:10 Dose: 350 mg Documented by: ALBERTO Carvedilol (Carvedilol 3.125 Mg Tablet) 3.125 mg PO BID [facility] Last Admin: 10/13/21 10:43 Dose: 3.125 mg Documented by: ALBERTO Cyanocobalamin (Cyanocobalamin 1,000 Mcg/Ml Vial) 1,000 mcg IM NOW ONE Stop: 11/09/21 09:01 Diazepam (Diazepam 5 Mg Tablet) 5 mg PO TID PRN PRN Reason: anxiety Last Admin: 10/13/21 11:47 Dose: 5 mg Documented by: Admin: 10/12/21 21:14 Dose: 5 mg Documented by: Admin: 10/12/21 14:10 Dose: 5 mg Documented by: ALBERTO Docusate Sodium (Docusate 100 Mg Capsule) 100 mg PO BID [facility] Last Admin: 10/13/21 10:32 Dose: Not Given Documented by: Admin: 10/12/21 21:15 Dose: Not Given Documented by: CARLITA Duloxetine HCl (Duloxetine 30 Mg Capsule) 30 mg PO BID [facility] Last Admin: 10/13/21 09:57 Dose: 30 mg Documented by: Admin: 10/12/21 21:14 Dose: 30 mg Documented by: Admin: 10/12/21 14:10 Dose: 30 mg Documented by: ALBERTO Enoxaparin Sodium (Enoxaparin 40 Mg/0.4 Ml Syringe) 40 mg SUBCUT DAILY [facility] Last Admin: 10/13/21 09:58 Dose: 40 mg Documented by: ALBERTO Ergocalciferol (Ergocalciferol (Vitamin D2) 50,000 Unit Capsule) 50,000 unit PO Mo@0900 [facility] Fenofibrate (Fenofibrate, Micronized 67 Mg Capsule) 201 mg PO DAILY [facility] Last Admin: 10/13/21 09:57 Dose: 201 mg Documented by: ALBERTO Hydralazine HCl (Hydralazine 20 Mg/Ml Vial) 10 mg IV Q6HR PRN PRN Reason: Hypertension; SBP>190 Meclizine HCl (Meclizine Hcl 12.5 Mg Tablet) 25 mg PO NOW ONE Stop: 10/13/21 10:05 Last Admin: 10/13/21 10:43 Dose: 25 mg Documented by: ALBERTO Naloxone HCl (Naloxone 0.4 Mg/Ml Vial) 0.2 mg IV Q2MIN PRN PRN Reason: Opiate Reversal Diclofenac Sodium 0. (1 % Drops) 1 drop EYE-BOTH BID [facility] Last Admin: 10/13/21 10:32 Dose: Not Given Documented by: Admin: 10/12/21 21:15 Dose: Not Given Documented by: Admin: 10/12/21 16:00 Dose: Not Given Documented by: ALBERTO Non-Formulary Medication (Ocrelizumab [Ocrevus]) 600 mg IV [id number] [facility] Ondansetron HCl (Ondansetron 4 Mg/2 Ml Inj) 4 mg IV Q8HR PRN PRN Reason: Nausea And Vomiting Paroxetine HCl (Paroxetine 20 Mg Tablet) 60 mg PO DAILY [facility] Last Admin: 10/13/21 09:57 Dose: 60 mg Documented by: ALBERTO Pregabalin (Pregabalin 50 Mg Capsule) 50 mg PO DAILY [facility] Last Admin: 10/13/21 09:59 Dose: 50 mg Documented by: ALBERTO Pregabalin (Pregabalin 50 Mg Capsule) 100 mg PO BEDTIME [facility] Last Admin: 10/13/21 02:13 Dose: Not Given Documented by: CARLITA Sennosides (Sennosides 8.6 Mg Tablet) 17.2 mg PO BEDTIME [facility] Last Admin: 10/12/21 21:15 Dose: Not Given Documented by: CARLITA Trazodone HCl (Trazodone 50 Mg Tablet) 100 mg PO BEDTIME PRN PRN Reason: insomnia Last Admin: 10/12/21 21:14 Dose: 100 mg Documented by: CARLITA Vital Signs Vital signs: Vital Signs - 8 hr 10/12/21 06:25 10/12/21 08:15 10/12/21 08:17 Temperature 98.1 F Pulse Rate 72 62 64 Respiratory Rate 18 14 Blood Pressure 183/96 H 189/88 H Pulse Oximetry 95 95 96 10/12/21 08:30 10/12/21 09:00 10/12/21 09:30 Temperature Pulse Rate 63 63 63 Respiratory Rate 15 21 17 Blood Pressure 170/81 H 182/89 H 184/86 H Pulse Oximetry 94 94 10/12/21 10:00 Temperature Pulse Rate 63 Respiratory Rate 21 Blood Pressure 173/82 H Pulse Oximetry 96 <Ben Odell DO - Last Filed: 10/12/21 11:06> Orders Ordered: Discontinued Medications Acetaminophen (Acetaminophen 325 Mg Tablet) 650 mg PO Q6HR PRN PRN Reason: Fever/Mild Pain (1-3) Amlodipine Besylate (Amlodipine 5 Mg Tablet) 2.5 mg PO DAILY [facility] Aspirin (Aspirin Ec 81 Mg Tablet) 162 mg PO DAILY [facility] Last Admin: 10/13/21 09:46 Dose: 162 mg Documented by: Admin: 10/12/21 14:19 Dose: Not Given Documented by: ALBERTO Atorvastatin Calcium (Atorvastatin 20 Mg Tablet) 80 mg PO DAILY [facility] Last Admin: 10/13/21 09:56 Dose: 80 mg Documented by: ALBERTO Buspirone HCl (Buspirone 5 Mg Tablet) 20 mg PO TID [facility] Last Admin: 10/13/21 09:56 Dose: 20 mg Documented by: Admin: 10/12/21 21:15 Dose: Not Given Documented by: Admin: 10/12/21 16:00 Dose: 20 mg Documented by: ALBERTO Carisoprodol (Carisoprodol 350 Mg Tablet) 350 mg PO TID [facility] Last Admin: 10/13/21 10:34 Dose: Not Given Documented by: Admin: 10/12/21 21:14 Dose: 350 mg Documented by: Admin: 10/12/21 14:10 Dose: 350 mg Documented by: ALBERTO Carvedilol (Carvedilol 3.125 Mg Tablet) 3.125 mg PO BID [facility] Last Admin: 10/13/21 10:43 Dose: 3.125 mg Documented by: ALBERTO Cyanocobalamin (Cyanocobalamin 1,000 Mcg/Ml Vial) 1,000 mcg IM NOW ONE Stop: 11/09/21 09:01 Diazepam (Diazepam 5 Mg Tablet) 5 mg PO TID PRN PRN Reason: anxiety Last Admin: 10/13/21 11:47 Dose: 5 mg Documented by: Admin: 10/12/21 21:14 Dose: 5 mg Documented by: Admin: 10/12/21 14:10 Dose: 5 mg Documented by: ALBERTO Docusate Sodium (Docusate 100 Mg Capsule) 100 mg PO BID [facility] Last Admin: 10/13/21 10:32 Dose: Not Given Documented by: Admin: 10/12/21 21:15 Dose: Not Given Documented by: CARLITA Duloxetine HCl (Duloxetine 30 Mg Capsule) 30 mg PO BID [facility] Last Admin: 10/13/21 09:57 Dose: 30 mg Documented by: Admin: 10/12/21 21:14 Dose: 30 mg Documented by: Admin: 10/12/21 14:10 Dose: 30 mg Documented by: ALBERTO Enoxaparin Sodium (Enoxaparin 40 Mg/0.4 Ml Syringe) 40 mg SUBCUT DAILY [facility] Last Admin: 10/13/21 09:58 Dose: 40 mg Documented by: ALBERTO Ergocalciferol (Ergocalciferol (Vitamin D2) 50,000 Unit Capsule) 50,000 unit PO Mo@0900 [facility] Fenofibrate (Fenofibrate, Micronized 67 Mg Capsule) 201 mg PO DAILY [facility] Last Admin: 10/13/21 09:57 Dose: 201 mg Documented by: ALBERTO Hydralazine HCl (Hydralazine 20 Mg/Ml Vial) 10 mg IV Q6HR PRN PRN Reason: Hypertension; SBP>190 Meclizine HCl (Meclizine Hcl 12.5 Mg Tablet) 25 mg PO NOW ONE Stop: 10/13/21 10:05 Last Admin: 10/13/21 10:43 Dose: 25 mg Documented by: ALBERTO Naloxone HCl (Naloxone 0.4 Mg/Ml Vial) 0.2 mg IV Q2MIN PRN PRN Reason: Opiate Reversal Diclofenac Sodium 0. (1 % Drops) 1 drop EYE-BOTH BID [facility] Last Admin: 10/13/21 10:32 Dose: Not Given Documented by: Admin: 10/12/21 21:15 Dose: Not Given Documented by: Admin: 10/12/21 16:00 Dose: Not Given Documented by: ALBERTO Non-Formulary Medication (Ocrelizumab [Ocrevus]) 600 mg IV [id number] [facility] Ondansetron HCl (Ondansetron 4 Mg/2 Ml Inj) 4 mg IV Q8HR PRN PRN Reason: Nausea And Vomiting Paroxetine HCl (Paroxetine 20 Mg Tablet) 60 mg PO DAILY [facility] Last Admin: 10/13/21 09:57 Dose: 60 mg Documented by: ALBERTO Pregabalin (Pregabalin 50 Mg Capsule) 50 mg PO DAILY [facility] Last Admin: 10/13/21 09:59 Dose: 50 mg Documented by: ALBERTO Pregabalin (Pregabalin 50 Mg Capsule) 100 mg PO BEDTIME [facility] Last Admin: 10/13/21 02:13 Dose: Not Given Documented by: CRALITA Sennosides (Sennosides 8.6 Mg Tablet) 17.2 mg PO BEDTIME [facility] Last Admin: 10/12/21 21:15 Dose: Not Given Documented by: CARLITA Trazodone HCl (Trazodone 50 Mg Tablet) 100 mg PO BEDTIME PRN PRN Reason: insomnia Last Admin: 10/12/21 21:14 Dose: 100 mg Documented by: CARLITA Vital Signs Vital signs: Vital Signs - 8 hr 10/12/21 06:25 10/12/21 08:15 10/12/21 08:17 Temperature 98.1 F Pulse Rate 72 62 64 Respiratory Rate 18 14 Blood Pressure 183/96 H 189/88 H Pulse Oximetry 95 95 96 10/12/21 08:30 10/12/21 09:00 10/12/21 09:30 Temperature Pulse Rate 63 63 63 Respiratory Rate 15 21 17 Blood Pressure 170/81 H 182/89 H 184/86 H Pulse Oximetry 94 94 10/12/21 10:00 Temperature Pulse Rate 63 Respiratory Rate 21 Blood Pressure 173/82 H Pulse Oximetry 96 Medical Decision Making <Stas Nabila, - Last Filed: 10/15/21 18:07> Lab Data Result diagrams: 10/13/21 07:01 10/13/21 07:01 Labs: Lab Results 10/12/21 10/12/21 10/12/21 Range/Units 06:50 06:50 06:50 WBC 4.3 L (4.5-11.0) X10^3/uL RBC 4.36 (4.0-5.2) X10^6/uL Hgb 13.9 (12.0-16.0) g/dL Hct 40.3 (36-46) % MCV 92.5 (80-100) fL MCH 31.8 (26-34) PG MCHC 34.4 (30-36) % RDW 12.8 (11.6-14.8) % Plt Count 239 (150-400) X10^3/uL Neut % (Auto) 68.2 (50-75) % Lymph % (Auto) 19.2 L (25-40) % [place] % (Auto) 8.8 (3-14) % Eos % (Auto) 2.9 (2-4) % Baso % (Auto) 0.9 (0-2) % Neut # (Auto) 2900 (5189-1307) /uL Lymph # (Auto) 800 L (1380-8012) /uL [place] # (Auto) 400 (0-900) /uL Eos # (Auto) 100 (0-450) /uL Baso # (Auto) 0 (0-100) /uL Sodium 140 (137-145) mmol/L Potassium 4.6 (3.4-5.1) mmol/L Chloride 107 (98-107) mmol/L Carbon Dioxide 29 (22-32) mmol/L BUN 15 (7-17) mg/dL Creatinine 0.85 (0.52-1.04) mg/dL Estimated GFR > 60.0 (>60) mL/min BUN/Creatinine Ratio 17.6 (6-22) Glucose 128 H (80-110) mg/dL Calcium 9.3 (8.4-10.2) mg/dL Phosphorus 3.4 (2.8-4.1) mg/dL Magnesium 2.1 (1.6-2.3) mg/dL Total Bilirubin 0.4 (0.2-1.3) mg/dL AST 22 (14-36) IU/L ALT 25 (<35) IU/L Alkaline Phosphatase 35 L (38-126) U/L Total Creatine Kinase 35 (30-135) U/L CK-MB (CK-2) TNP CK-MB (CK-2) Rel Index TNP Troponin I < 0.012 (0.01-0.034) ng/mL Total Protein 7.0 (6.3-8.2) g/dL Albumin 4.5 (3.5-5.0) g/dL Globulin 2.5 (1.7-4.1) g/dL Albumin/Globulin Ratio 1.8 (1.0-2.8) Triglycerides 204 H (35-150) mg/dL Cholesterol 173 (140-199) mg/dL LDL Cholesterol, Calc 85 (<100) mg/dL HDL Cholesterol 47 (40-60) mg/dL Lipase 115 (23-300) U/L Serum VDRL (Non Reactive) SARS-CoV-2 (PCR) (Negative) 10/12/21 10/12/21 Range/Units 06:50 08:20 WBC (4.5-11.0) X10^3/uL RBC (4.0-5.2) X10^6/uL Hgb (12.0-16.0) g/dL Hct (36-46) % MCV (80-100) fL MCH (26-34) PG MCHC (30-36) % RDW (11.6-14.8) % Plt Count (150-400) X10^3/uL Neut % (Auto) (50-75) % Lymph % (Auto) (25-40) % [place] % (Auto) (3-14) % Eos % (Auto) (2-4) % Baso % (Auto) (0-2) % Neut # (Auto) (0973-6389) /uL Lymph # (Auto) (0011-2839) /uL [place] # (Auto) (0-900) /uL Eos # (Auto) (0-450) /uL Baso # (Auto) (0-100) /uL Sodium (137-145) mmol/L Potassium (3.4-5.1) mmol/L Chloride (98-107) mmol/L Carbon Dioxide (22-32) mmol/L BUN (7-17) mg/dL Creatinine (0.52-1.04) mg/dL Estimated GFR (>60) mL/min BUN/Creatinine Ratio (6-22) Glucose (80-110) mg/dL Calcium (8.4-10.2) mg/dL Phosphorus (2.8-4.1) mg/dL Magnesium (1.6-2.3) mg/dL Total Bilirubin (0.2-1.3) mg/dL AST (14-36) IU/L ALT (<35) IU/L Alkaline Phosphatase (38-126) U/L Total Creatine Kinase (30-135) U/L CK-MB (CK-2) CK-MB (CK-2) Rel Index Troponin I (0.01-0.034) ng/mL Total Protein (6.3-8.2) g/dL Albumin (3.5-5.0) g/dL Globulin (1.7-4.1) g/dL Albumin/Globulin Ratio (1.0-2.8) Triglycerides (35-150) mg/dL Cholesterol (140-199) mg/dL LDL Cholesterol, Calc (<100) mg/dL HDL Cholesterol (40-60) mg/dL Lipase (23-300) U/L Serum VDRL Non reactive (Non Reactive) SARS-CoV-2 (PCR) Negative (Negative) Urine Dip Bedside Urine Glucose Negative Bedside Urine Bilirubin - Negative Bedside Urine Ketone - Negative Urine Specific [place] 1.015 Bedside Urine Occult Blood - Negative Bedside Urine pH 8.0 Bedside Urine Protein - Negative Bedside Urine Urobilinogen - Negative Bedside Urine Nitrite - Negative Bedside Urine Leukocytes - Negative Esterase Point of care testing: Urine Dip Bedside Urine Glucose Negative Bedside Urine Bilirubin - Negative Bedside Urine Ketone - Negative Urine Specific [place] 1.015 Bedside Urine Occult Blood - Negative Bedside Urine pH 8.0 Bedside Urine Protein - Negative Bedside Urine Urobilinogen - Negative Bedside Urine Nitrite - Negative Bedside Urine Leukocytes - Negative Esterase MDM Narrative Medical decision making narrative: Symptoms started greater than 4-1/2 hours ago. She woke with the symptoms. Has obvious left-sided weakness but she states that her left side is normally weak secondary to her MS. She does admit that it feels more weak than normal. Her NIH score is 1 secondary to subjective decrease in sensation to her left upper extremity to light touch compared to the right. She is able to perform the tasks associated with the NIH score with her left upper extremity right upper extremity. With the patient describes is not vertigo. CT scan head ordered. Labs ordered. EKG ordered. Care turned over to Dr. Odell at change of shift to follow up and disposition. <Ben Odell, DO - Last Filed: 10/12/21 11:06> Lab Data Labs: Lab Results 10/12/21 10/12/21 10/12/21 Range/Units 06:50 06:50 06:50 WBC 4.3 L (4.5-11.0) X10^3/uL RBC 4.36 (4.0-5.2) X10^6/uL Hgb 13.9 (12.0-16.0) g/dL Hct 40.3 (36-46) % MCV 92.5 (80-100) fL MCH 31.8 (26-34) PG MCHC 34.4 (30-36) % RDW 12.8 (11.6-14.8) % Plt Count 239 (150-400) X10^3/uL Neut % (Auto) 68.2 (50-75) % Lymph % (Auto) 19.2 L (25-40) % [place] % (Auto) 8.8 (3-14) % Eos % (Auto) 2.9 (2-4) % Baso % (Auto) 0.9 (0-2) % Neut # (Auto) 2900 (1749-9808) /uL Lymph # (Auto) 800 L (8232-6410) /uL [place] # (Auto) 400 (0-900) /uL Eos # (Auto) 100 (0-450) /uL Baso # (Auto) 0 (0-100) /uL Sodium 140 (137-145) mmol/L Potassium 4.6 (3.4-5.1) mmol/L Chloride 107 (98-107) mmol/L Carbon Dioxide 29 (22-32) mmol/L BUN 15 (7-17) mg/dL Creatinine 0.85 (0.52-1.04) mg/dL Estimated GFR > 60.0 (>60) mL/min BUN/Creatinine Ratio 17.6 (6-22) Glucose 128 H (80-110) mg/dL Calcium 9.3 (8.4-10.2) mg/dL Phosphorus 3.4 (2.8-4.1) mg/dL Magnesium 2.1 (1.6-2.3) mg/dL Total Bilirubin 0.4 (0.2-1.3) mg/dL AST 22 (14-36) IU/L ALT 25 (<35) IU/L Alkaline Phosphatase 35 L (38-126) U/L Total Creatine Kinase 35 (30-135) U/L CK-MB (CK-2) TNP CK-MB (CK-2) Rel Index TNP Troponin I < 0.012 (0.01-0.034) ng/mL Total Protein 7.0 (6.3-8.2) g/dL Albumin 4.5 (3.5-5.0) g/dL Globulin 2.5 (1.7-4.1) g/dL Albumin/Globulin Ratio 1.8 (1.0-2.8) Triglycerides 204 H (35-150) mg/dL Cholesterol 173 (140-199) mg/dL LDL Cholesterol, Calc 85 (<100) mg/dL HDL Cholesterol 47 (40-60) mg/dL Lipase 115 (23-300) U/L Serum VDRL (Non Reactive) SARS-CoV-2 (PCR) (Negative) 10/12/21 10/12/21 Range/Units 06:50 08:20 WBC (4.5-11.0) X10^3/uL RBC (4.0-5.2) X10^6/uL Hgb (12.0-16.0) g/dL Hct (36-46) % MCV (80-100) fL MCH (26-34) PG MCHC (30-36) % RDW (11.6-14.8) % Plt Count (150-400) X10^3/uL Neut % (Auto) (50-75) % Lymph % (Auto) (25-40) % [place] % (Auto) (3-14) % Eos % (Auto) (2-4) % Baso % (Auto) (0-2) % Neut # (Auto) (5351-2958) /uL Lymph # (Auto) (2002-3686) /uL [place] # (Auto) (0-900) /uL Eos # (Auto) (0-450) /uL Baso # (Auto) (0-100) /uL Sodium (137-145) mmol/L Potassium (3.4-5.1) mmol/L Chloride (98-107) mmol/L Carbon Dioxide (22-32) mmol/L BUN (7-17) mg/dL Creatinine (0.52-1.04) mg/dL Estimated GFR (>60) mL/min BUN/Creatinine Ratio (6-22) Glucose (80-110) mg/dL Calcium (8.4-10.2) mg/dL Phosphorus (2.8-4.1) mg/dL Magnesium (1.6-2.3) mg/dL Total Bilirubin (0.2-1.3) mg/dL AST (14-36) IU/L ALT (<35) IU/L Alkaline Phosphatase (38-126) U/L Total Creatine Kinase (30-135) U/L CK-MB (CK-2) CK-MB (CK-2) Rel Index Troponin I (0.01-0.034) ng/mL Total Protein (6.3-8.2) g/dL Albumin (3.5-5.0) g/dL Globulin (1.7-4.1) g/dL Albumin/Globulin Ratio (1.0-2.8) Triglycerides (35-150) mg/dL Cholesterol (140-199) mg/dL LDL Cholesterol, Calc (<100) mg/dL HDL Cholesterol (40-60) mg/dL Lipase (23-300) U/L Serum VDRL Non reactive (Non Reactive) SARS-CoV-2 (PCR) Negative (Negative) Urine Dip Bedside Urine Glucose Negative Bedside Urine Bilirubin - Negative Bedside Urine Ketone - Negative Urine Specific [place] 1.015 Bedside Urine Occult Blood - Negative Bedside Urine pH 8.0 Bedside Urine Protein - Negative Bedside Urine Urobilinogen - Negative Bedside Urine Nitrite - Negative Bedside Urine Leukocytes - Negative Esterase Point of care testing: Urine Dip Bedside Urine Glucose Negative Bedside Urine Bilirubin - Negative Bedside Urine Ketone - Negative Urine Specific [place]agram 1.015 Bedside Urine Occult Blood - Negative Bedside Urine pH 8.0 Bedside Urine Protein - Negative Bedside Urine Urobilinogen - Negative Bedside Urine Nitrite - Negative Bedside Urine Leukocytes - Negative Esterase Imaging Data CT scan - head: Radiologist's Impression: Candy Oneill??66??F??1955 ? Allergy/Adv: niacin Close Head CT (Signed) Opal Roque - 10/12/21 Lumbar Spine MRI (Signed) Lux Fraire - 09/23/21 Hip MRI (Signed) Lux Fraire - 09/23/21 Hip X-Ray (Signed) Diego Forrest - 08/02/21 Thoracic Spine X-Ray (Signed) Alexandru Preciadosse - 05/29/20 DEXA Result 05/08/19 Mammogram Screening (Signed) Chandler Miller - 05/08/19 Bone Densitometry 05/08/19 Abdomen/Pelvis CT (Signed) Erwin Reed - 04/18/19 Ribs X-Ray (Signed) Ezequiel Bran - 03/21/19 Brain MRI (Signed) Ezequiel Bran - 10/21/18 Mammogram Screening (Signed) Michael Valdes - 03/08/18 [place] [address] CT Scan Report Signed Patient: Candy Oneill MR#: [id number] : 1955 Acct:[id number] Age/Sex: 66 / F Date of Service: 10/12/21 Loc: Accession Number: [id number] ?? Procedure: CT head/brain wo con Ordering Provider: Stas Dahl D.O. PROCEDURE:? CT HEAD/BRAIN WO CON ? INDICATIONS:? dizziness ? TECHNIQUE:? Noncontrast 4.5 mm thick angled axial sections acquired from the foramen magnum to the vertex, with coronal and sagittal reformats.? For radiation dose reduction, the following was used:? automated exposure control, adjustment of mA and/or kV according to patient size.? ? COMPARISON:? [facility], , HEAD/BRAIN WO/W CON, 10/21/2018, 7:38. ? FINDINGS:? Image quality:? Excellent.? ? CSF spaces:? Basal cisterns are patent.? No extra-axial fluid collections.? The ventricles are symmetric in size and shape.? ? Brain:? No intracranial bleeds or masses.? There is cerebral volume loss for age, with resultant ventricular and sulcal prominence.? There are periventricular and deep white matter chronic small vessel ischemic changes.? There is intracranial internal carotid artery atherosclerosis.? ? Skull and face:? Calvarium and visualized facial bones appear intact, without suspicious lesions.? ? Sinuses:? Visualized sinuses and mastoids are clear.? ? IMPRESSION:? No acute intracranial disease process. ? ? Dictated by: Opal Roque MD, PhD on 10/12/2021 at 8:09 ? ? Approved by: Opal Roque MD, PhD on 10/12/2021 at 8:11 ? [facility] Narrative Additional Information: Patient had neurologic symptoms which prompted her visit including facial droop, trouble speech and finding words as well as increased extremity weakness on her left side. Her symptoms have largely if not completely improved. She also has dizziness that at times is positional and other times seems to happen without any obvious provocation. Her head CT is unremarkable. She is outside of any window for tPA and does not meet any criteria for large vessel occlusion or mechanical retrieval at this point time. She requires hospitalization for further characterization and evaluation of her dizziness and TIA type symptoms Discharge Plan Departure Patient Disposition: Admitted as Observation Clinical Impression: Brain TIA, Dizziness Admit Date/Time: 10/12/21 10:13 Admit Provider: Brian Lamar
[2021-10-12 07:06] LABS: Add Manual Diff / Slide Review NO; Basophils Absolute Auto 0 /uL (0-100); Basophils Percent Auto 0.9 % (0-2); Eosinophils Absolute Auto 100 /uL (0-450); Eosinophils Percent Auto 2.9 % (2-4); Hematocrit 40.3 % (36-46); Hemoglobin 13.9 g/dL (12.0-16.0); Lymphocytes Absolute Auto 800 /uL (1100-4500); Lymphocytes Percent Auto 19.2 % (25-40); Mean Corpuscular HGB Conc 34.4 % (30-36); Mean Corpuscular Hemoglobin 31.8 PG (26-34); Mean Corpuscular Volume 92.5 fL (80-100); Monocytes Absolute Auto 400 /uL (0-900); Monocytes Percent Auto 8.8 % (3-14); Neutrophils Absolute Auto 2900 /uL (1500-7000); Neutrophils Percent Auto 68.2 % (50-75); Platelet Count 239 X10^3/uL (150-400); Red Blood Cell Count 4.36 X10^6/uL (4.0-5.2); Red Cell Distribution Width 12.8 % (11.6-14.8); White Blood Cell Count 4.3 X10^3/uL (4.5-11.0)
[2021-10-12 07:07] LABS: Alanine Aminotransferase 25 IU/L (<35); Albumin 4.5 g/dL (3.5-5.0); Albumin Globulin Ratio 1.8 (1.0-2.8); Alkaline Phosphatase 35 U/L (38-126); Aspartate Aminotransferase 22 IU/L (14-36); BUN Creatinine Ratio 17.6 (6-22); Bilirubin Total 0.4 mg/dL (0.2-1.3); Blood Urea Nitrogen 15 mg/dL (7-17); Calcium 9.3 mg/dL (8.4-10.2); Carbon Dioxide 29 mmol/L (22-32); Chloride 107 mmol/L (98-107); Creatine Kinase 35 U/L (30-135); Estimated Glomerular Filt Rate > 60.0 mL/min (>60); Globulin 2.5 g/dL (1.7-4.1); Glucose 128 mg/dL (80-110); HEMOLYSIS 18 (0-50); Lipase 115 U/L (23-300); Magnesium 2.1 mg/dL (1.6-2.3); Phosphorous 3.4 mg/dL (2.8-4.1); Potassium 4.6 mmol/L (3.4-5.1); Sodium 140 mmol/L (137-145)
[2021-10-12 07:18] LABS: Troponin I < 0.012 ng/mL (0.01-0.034)
--- NOTE | 2021-10-12 08:36 | PC.NURSE ---
reports she woke up in the morning with a sensation that she was spinning and couldn't stop. describes it as being on a bike. reports she has trouble walking with her MS and states she was due for surgery tomorrow-vascular per patient for her legs.
[2021-10-12 09:14] LABS: COVID19 - ADMIT (NP swab/PCR) Negative (Negative)
--- NOTE | 2021-10-12 11:06 | P.HP_ITS ---
History of Present Illness History of Present Illness Chief complaint: Dizzy Narrative: THIS IS A 66-YEAR-OLD FEMALE WITH A HISTORY OF MULTIPLE SCLEROSIS WHOPRESENTED TO THE HOSPITAL ER WITH REPORTED DIFFICULTY WITH SIGNIFICANT VERTIGO/DIZZINESS WELL SLLURED SPEECH. PATIENT STATED THAT SHE WOKE UP THIS MORNING AROUND 2:00 A.M. AND ATTEMPTED TO GO TO THE BATH AND FELT VERY DIZZY. SHE ALSO STATED THAT SHE MANAGED TO GO TO THE BATHROOM AND BACK TO BED WHERE SHE SLEPT FOR A COUPLE OF HOURS SHE ONCE AGAIN WOKE UP AROUND 4:00 A.M. AND FELT DIZZY ONCE AGAIN. HER SISTER NOTICED PATIENT TO HAVE SOME MILD FACIAL DROOPING WELL DIFFICULTY WITH SPEECH AND DECIDED TO CALL 911. HOWEVER BY THE TIME THE EMERGENCY PERSONAL HAD ARRIVED, HAS SYMPTOMS HAD MOSTLY RESOLVED EXCEPT FOR HER VERTIGO/ DIZZINESS. IN THE ER, HER WORKUP WAS FAIRLY DENY. HER BLOOD PRESSURE SIGNIFICANTLY ELEVATED WELL. SHE REPORTEDLY DOES NOT TAKE ANY BP MEDS Patient History Medical History Anesthesia Anxiety (12/10/14) Chronic back pain Chronic thoracic back pain Depression (12/10/14) Endometriosis (~1973) Fibroids (~1976) Gastroesophageal reflux disease (04/28/15) Insomnia due to other mental disorder (10/11/16) Left buttock pain Left rib fracture (~11/2014) Lower back pain Mixed hyperlipidemia (10/11/16) Multiple sclerosis, primary progressive (~02/2015) Osteopenia Overweight (BMI 25.0-29.9) Prediabetes (10/11/16) Rosacea blepharoconjunctivitis Segmental and somatic dysfunction of rib cage Sprain of left foot Tobacco use disorder (12/10/14) Surgical History History of tonsillectomy (~1958) S/P epidural steroid injection Status post cholecystectomy (~2007) Status post hysterectomy (~1990) Family & Social History Family History (Updated 05/29/20 @ 13:31 by Veronica Guerrero DO) Mother Hyperlipidemia Lung cancer Alcoholism Anxiety Insomnia, unspecified type Hypertension Tobacco use disorder Macular degeneration Abdominal aortic aneurysm (AAA) without rupture Carotid artery disease, unspecified laterality Sister Hypertension High cholesterol Father No problems noted. Sister Hyperlipidemia Hypertension Social History: household members none Safety & Behavioral: Feels Safe in Current Yes Environment Tobacco & Substance use: Smoking Status Current every day smoker alcohol intake frequency 0-2 drinks per day Substance Use Type marijuana Meds Home Medications and Allergies Home Medications Medication Instructions Recorded Confirmed Type ocrelizumab 30 mg/mL intravenous 600 mg IV [id number] 12/10/18 10/12/21 History solution (Ocrevus) disabled parking permit #1 ea 05/13/19 10/12/21 Rx diclofenac sodium 0.1 % eye drops 1 drop EYE-BOTH BID ml 09/12/19 10/12/21 History paroxetine HCl 30 mg tablet 60 mg PO QDAY #180 tab 05/18/21 10/12/21 Rx pregabalin 50 mg capsule See Rx Instructions .ROUTE 06/07/21 10/12/21 Rx .COMPLEX #270 cap carisoprodol 350 mg tablet See Rx Instructions .ROUTE 06/22/21 10/12/21 Rx .COMPLEX #270 tab diazepam 5 mg tablet 5 mg PO TID PRN #270 tab 08/01/21 10/12/21 Rx duloxetine 30 mg capsule,delayed 30 mg PO BID #180 cap 08/01/21 10/12/21 Rx release ergocalciferol (vitamin D2) 1,250 50,000 unit PO QWEEK #12 cap 08/05/21 10/12/21 Rx mcg (50,000 unit) capsule (Vitamin D2) B12 See Rx Instructions .ROUTE .COMPLEX 08/09/21 10/12/21 History trazodone 50 mg tablet 100 mg PO BEDTIME PRN #180 tab 08/18/21 10/12/21 Rx fenofibrate 160 mg tablet 160 mg PO DAILY #90 tab 08/24/21 10/12/21 Rx buspirone 10 mg tablet See Rx Instructions .ROUTE 09/05/21 10/12/21 Rx .COMPLEX #540 tab rosuvastatin 40 mg tablet 40 mg PO DAILY 10/12/21 10/12/21 History Allergies Allergy/AdvReac Type Severity Reaction Status Date / Time niacin [NIACIN] AdvReac Intermediate PASS OUT Verified 08/01/21 09:03 Review of Systems Review of Systems Narrative: ALL SYSTEM REVIEWED. NEGATIVE UNLESS NOTED ABOVE IN HPI Exam Vital Signs (past 8 hours): - 10/12/21 06:25 10/12/21 08:15 10/12/21 08:17 Temperature 98.1 F Pulse Rate 72 62 64 Respiratory Rate 18 14 Blood Pressure 183/96 H 189/88 H Pulse Oximetry 95 95 96 10/12/21 08:30 10/12/21 09:00 10/12/21 09:30 Temperature Pulse Rate 63 63 63 Respiratory Rate 15 21 17 Blood Pressure 170/81 H 182/89 H 184/86 H Pulse Oximetry 94 94 10/12/21 10:00 10/12/21 10:30 Temperature Pulse Rate 63 64 Respiratory Rate 21 23 Blood Pressure 173/82 H 180/91 H Pulse Oximetry 96 94 Oxygen Delivery Method Room Air Narrative Exam Narrative: NO ACUTE DISTRESS. OVERWEIGHT. VITAL SIGNS STABLE HEAD ATRAUMATIC NORMOCEPHALIC NECK : SUPPLE WITHOUT ADENOPATHY NO CAROTID BRUITS EYE: EOMI, PERRLA, NORMAL CONJUNCTIVA; NO JAUNDICE CHEST: REGULAR RATE. NO RUBS. PMI IS NON DISPLACED. NO MURMURS; NORMAL S1- S2 PULMONARY: DECREASED BS OVER THE BASES. MILD BIBASILAR CRACKLES NOTED; NO INCREASED DULLNESS TO PERCUSSION ABDOMEN: SOFT. NONTENDER. NONDISTENDED. BOWEL SOUNDS ARE PRESENT IN ALL 4 QUADRANTS. NO MASS. EXTREMITIES: 1+ NONPITTING BILATERAL LOWER EXTREMITY EDEMA.. NO CYANOSIS CLUBBING NOTED. NEURO: CRANIAL NERVES 2-12 GROSSLY INTACT. NO FOCAL NEUROLOGICAL DEFICIT NOTED. MSK: NORMAL RANGE OF MOTION FOR AGE. NO JOINT EFFUSION. SKIN: NORMAL FOR ETHNICITY; NO ECCHYMOSIS. NO LESION. GOOD TURGOR.; NO RASHES : NORMAL EXTERNAL GENITALIA. PSYCH : APPROPRIATE MOOD AND AFFECT. ALERT AWAKE ORIENTED X3 Objective Labs Result Diagrams: 10/12/21 06:50 10/12/21 06:50 Labs: Laboratory Results - last 24 hr 10/12/21 10/12/21 10/12/21 06:50 06:50 08:20 WBC 4.3 L RBC 4.36 Hgb 13.9 Hct 40.3 MCV 92.5 MCH 31.8 MCHC 34.4 RDW 12.8 Plt Count 239 Neut % (Auto) 68.2 Lymph % (Auto) 19.2 L [place] % (Auto) 8.8 Eos % (Auto) 2.9 Baso % (Auto) 0.9 Neut # (Auto) 2900 Lymph # (Auto) 800 L [place] # (Auto) 400 Eos # (Auto) 100 Baso # (Auto) 0 Sodium 140 Potassium 4.6 Chloride 107 Carbon Dioxide 29 BUN 15 Creatinine 0.85 Estimated GFR > 60.0 BUN/Creatinine Ratio 17.6 Glucose 128 H Calcium 9.3 Phosphorus 3.4 Magnesium 2.1 Total Bilirubin 0.4 AST 22 ALT 25 Alkaline Phosphatase 35 L Total Creatine Kinase 35 CK-MB (CK-2) TNP CK-MB (CK-2) Rel Index TNP Troponin I < 0.012 Total Protein 7.0 Albumin 4.5 Globulin 2.5 Albumin/Globulin Ratio 1.8 Lipase 115 SARS-CoV-2 (PCR) Negative Assessment & Plan Assessment & Plan narrative: PROBLEM LIST POSSIBLE TIA . CVA IS UNLIKELY POSSIBLE HYPERTENSIVE URGENCY. REPORT PRIOR HISTORY DYSLIPIDEMIA PER HISTORY REACTIVE LEUKOCYTOSIS ANXIETY DEPRESSION PER HISTORY OVERWEIGHT. BMI OF 28 AVASCULAR NECROSIS ON THE LEFT HIP.PER HISTORY. PATIENT HAS PLAN FOR PATIENT 'S SURGERY PLAN CHECK LIPID STARTED ON ASPIRIN CONSIDER MRI HOWEVER WILL HOLD FOR NOW ECHOCARDIOGRAM ORDERED CTA ORDERED OF THE NECK AND HEAD CHECK RPR AND HOMOCYSTINE Q 4 HOUR NEURO CHECK PATIENT TO BE EVALUATED BY PT AND OT FALL AND ASPIRATION PRECAUTION TO BE MAINTAINED AT ALL TIMES STRICT BLOOD PRESSURE AND BLOOD SUGAR NEEDED BP MEDS ORDERED FOR NOW WILL EVALUATED OVER THE NEXT 24 HOURS IF SHE NEEDS TO BE PUT ON MEDICATIONS ADDITIONAL MANAGEMENT AND DISCHARGE PER CLINICAL COURSE Time Spent With Patient Critical Care time: I spent a total of [] minutes of critical care time on this patient's care today; this time is exclusive of procedural time.
--- NOTE | 2021-10-12 11:10 | DI.ECHO.S_ITS ---
[place] +---------+ [facility] +---------+ : : [address] : : : : [id number] : : : : Phone: [phone] Echocardiogram Report + :Name: PRACHI REESE Study Date: 10/13/2021 Height: 64 in : :[facility] ReadingLocation: Weight: 162 lb : : Gender: Female BSA: 1.8 m2 : :: 1955 Age: 66 yrs BP: 131/85 mmHg: :Reason For Study: TIA/CVA : :Ordering Physician: CARROLL, : :AMARA Performed By: Angeles Wayne : :Referring: AMARA HODGES : + Interpretation Summary The ejection fraction is estimated to be 70-75%. Mild intracavitary gradient with valsalva is noted. There is no Doppler evidence for an interatrial shunt. There is no significant valvular heart disease. Procedure: A two-dimensional transthoracic echocardiogram with color flow and Doppler was performed. The study quality was technically adequate. There is no prior echocardiogram noted for this patient. The patient was in sinus rhythm with heart rates between 76-88 bpm during the exam. Left Ventricle: There is borderline proximal septal thickening noted. The left ventricle is normal in size. Mild intracavitary gradient with valsalva is noted. The ejection fraction is estimated to be 70-75%. Diastolic parameters suggest a relaxation abnormality of the left ventricle, consistent with probable normal filling pressures. Right Ventricle: The right ventricle is normal in size and function. Atria: The left atrial size is normal. Right atrial size is normal. There is no Doppler evidence for an interatrial shunt. Mitral Valve: The mitral valve is normal in structure and function. There is trace mitral regurgitation. Aortic Valve: The aortic valve is not well visualized. There is no aortic valve stenosis. No aortic regurgitation is present. Tricuspid Valve: The tricuspid valve is normal in structure and function. There is trace tricuspid regurgitation. Pulmonic Valve: The pulmonic valve is not well visualized. There is no pulmonic valvular regurgitation. Great Vessels: The aortic root is normal size. The dimensions of the ascending aorta are normal. The IVC is of normal diameter and collapses greater than 50% with a sniff. This suggests a low right atrial pressure of 3 mm Hg. Pericardium/ Pleura There is a trivial pericardial effusion noted. There is no pleural effusion. MMode/2D Measurements & Calculations LVIDd: 4.1 cm LVOT diam: 1.9 cm LVIDs: 2.7 cm Ao root diam: 2.8 cm FS: 33.8 % asc Aorta Diam: 3.2 cm IVSd: 0.87 cm Ao Arch Diam (Prox Trans): 2.5 cm LVPWd: 1.0 cm LV castillo. diameter/BSA (cm/m^2): 2.3 LV sys. diameter/BSA (cm/m^2): 1.5 LA A2 area: 14.9 cm2 RA long axis: 4.0 cm LA A4 area: 13.0 cm2 RA area: 12.6 cm2 LA length (vol): 4.4 cm RA vol: 34.2 ml LA vol: 37.2 ml RA : 19.1 ml/m2 LA vol index: 20.8 ml/m2 IVC diam: 1.3 cm RVD1 (basal): 3.4 cm TAPSE: 1.7 cm Doppler Measurements & Calculations Ao V2 max: 160.1 cm/sec LVOT Max Julio: 120.2 cm/sec Ao V2 mean: 116.0 cm/sec LV V1 max P.8 mmHg Ao max P.3 mmHg LV V1 VTI: 21.5 cm Ao mean P.9 mmHg TERRANCE(I,D): 2.3 cm2 Ao V2 VTI: 25.8 cm TERRANCE(V,D): 2.1 cm2 sev ratio: 0.83 TERRANCE indexed to BSA (cm^2/m^2): 1.3 MV E max julio: 56.8 cm/sec PA V2 max: 101.1 cm/sec MV A max julio: 119.5 cm/sec PA V2 mean: 68.1 cm/sec MV E/A: 0.48 PA mean P.2 mmHg Med Peak E' Julio: 5.5 cm/sec PA pr(Accel): 49.9 mmHg E/E' med: 10.4 Lat Peak E' Julio: 6.4 cm/sec E/E' lat: 8.9 E/e' average: 9.6 MV dec time: 0.27 sec SV(LVOT): 59.2 ml Reading Physician:09:46 AM
--- NOTE | 2021-10-12 11:11 | DI.CT.S_ITS ---
PROCEDURE: CT ANGIO HEAD AND NECK INDICATIONS: TIA/CVA W/U TECHNIQUE: Pre-contrast 4.5 mm thick sections acquired from the foramen magnum to the vertex. After the administration of intravenous contrast, 1 mm thick sections acquired from the aortic arch through the [place] of [place]. Post-contrast 4.5 mm thick sections then re-acquired from the foramen magnum to the vertex. 3-dimensional ulrgaca-qhtazgmjo-mrqfadauji (MIP) and/or volume rendering reformats were acquired of the central intracranial vasculature and neck separately. COMPARISON: None. FINDINGS: Image quality: Excellent. BRAIN: CSF spaces: Ventricles are normal in size and shape. Basal cisterns are patent. No extra-axial fluid collections. Brain: No midline shift. No intracranial bleeds or masses. Aguirre-white matter interface appears intact. Skull and face: Calvarium and facial bones appear intact, without suspicious lesions. Orbits appear normal. Sinuses: Sinuses and mastoids are clear. HEAD CT ANGIOGRAPHY: Anterior circulation: Intracranial internal carotid arteries are normal in size and flow. The flow within the paired anterior cerebral arteries is normal and symmetric. The flow within the middle cerebral arteries is normal and symmetric. The anterior communicating artery is seen. No aneurysms are seen. Posterior circulation: Visualized portions of the vertebral arteries demonstrate normal caliber, and join to form a normal appearing basilar artery. The right posterior cerebral artery has its flow from the anterior circulation through the posterior communicating artery. Flow within the posterior cerebral arteries is normal and symmetric. No aneurysms are seen. NECK CT ANGIOGRAPHY: Carotid system: The great vessels demonstrate a conventional anatomy as they arise from the aortic arch. The origins of the common carotid arteries appear patent. The common carotid arteries demonstrate normal caliber and courses. The bifurcation regions have atherosclerotic calcifications but are both widely patent. The internal carotid arteries demonstrate normal calibers and courses. Posterior circulation: The origins of the vertebral arteries both appear widely patent. The more superior extracranial portions of both vertebral arteries also demonstrate normal courses and calibers. They join to form a normal appearing basilar artery. Soft tissues: Visualized neck soft tissues demonstrate no suspicious abnormalities. The lung apices have centrilobular emphysematous changes. Bones: No suspicious bony lesions. Visualized cervical spine appears normally aligned. IMPRESSION: 1. No acute intracranial abnormality. No abnormal intracranial enhancement. 2. Normal CTA of the head. 3. Atherosclerotic calcifications of the carotid bulbs, otherwise normal CTA of the neck. Any quantitative measurements of stenosis were performed using NASCET criteria. Dictated by: Saleem Doran M.D. on 10/12/2021 at 11:52 Approved by: Saleem Doran M.D. on 10/12/2021 at 12:03
--- NOTE | 2021-10-12 13:41 | OT.IPNOTE ---
Pt still eating lunch and at this time refusing to get up as too dizzy to get out of bed. To check on pt tomorrow for OT dwain.
[2021-10-12] MEDS: diazePAM 5 MG TABLET PO ×2 (14:10→21:14)
[2021-10-12] MEDS: DULOXETINE 30 MG CAPSULE PO ×2 (14:10→21:14)
[2021-10-12] MEDS: carisoprodoL 350 MG TABLET PO ×2 (14:10→21:14)
[2021-10-12 14:24] LABS: Cholesterol 173 mg/dL (140-199); HDL Cholesterol 47 mg/dL (40-60); LDL Cholesterol Calculated 85 mg/dL (<100); Triglycerides 204 mg/dL (35-150)
--- NOTE | 2021-10-12 15:45 | PT-IP ANOTE ---
Reviewed the chart and met with pt to discuss history. She was supposed to undergo core decompression for right hip avascular necrosis today but the procedure was cancelled due to lack of available beds at [facility]. She developed dizziness overnight last night and came by ambulance to the ED for treatment. She is quite clear that she does not feel the room is spinning. Rather, she states it's like someone grabbed me and spun me around for five minutes and then I have to try to walk. She has history of primary progressive MS diagnosed ~15 years ago, anxiety, and chronic back pain. Pt was just beginning to feel settled into bed as PT arrived and she was unwilling to get up and risk return of spinny feeling at this time. She agreed for PT to check back on her in the morning. Will continue to follow.
[2021-10-12] MEDS: BUSPIRONE 5 MG TABLET 20 MG PO (16:00)
--- NOTE | 2021-10-12 18:09 | PC.NURSE ---
Addendum entered by Carmen Zheng R.N. 10/12/21 18:17: Tele showing SB per ICU staff. Original Note: Pt arrived to room approximately 1230 Alert/oriented. Med x 1 w/ soma for discomfort. States RLE is tingling/numb Resting @ intervals. Using bedpan to void Call light w/in reach, bed alarm on for pt safety. Continue w/plan of care.
[2021-10-12] MEDS: TRAZODONE 50 MG TABLET 100 MG PO (21:14)
[2021-10-13] VITALS: O2SAT 93
[2021-10-13 02:00] VITALS: BP 135/92; PULSE 90; RESP 18; TEMP 36.8; O2SAT 93
[2021-10-13 02:59] LABS: Appearance Urine UA SL CLOUDY; Bilirubin Urine UA NEGATIVE (NEGATIVE); Color Urine UA YELLOW; Glucose Urine UA NEGATIVE (Negative); Ketones Urine UA NEGATIVE (NEGATIVE); Leukocyte Esterase Urine UA NEGATIVE (NEGATIVE); Nitrite Urine UA NEGATIVE (Negative); Occult Blood Urine UA TRACE-LYSED (Negative); Protein Urine UA NEGATIVE (Negative); Urobilinogen Urine UA 0.2 E.U./dL (0.2)
[2021-10-13 03:14] LABS: RBC Urine None Seen (0-5/HPF); WBC Urine None Seen (0-5/HPF)
[2021-10-13 03:15] LABS: Amorphous Sediment Urine 3+; Bacteria Urine None Seen; Culture Indicated Urine Cult Not Indicated
[2021-10-13 04:00] VITALS: O2SAT 94
[2021-10-13 06:00] VITALS: BP 154/95; PULSE 82; RESP 16; TEMP 36.6; O2SAT 94
[2021-10-13 07:04] LABS: RPR Screen Non Reactive (Non Reactive)
[2021-10-13 07:35] LABS: Alanine Aminotransferase 25 IU/L (<35); Albumin 4.4 g/dL (3.5-5.0); Albumin Globulin Ratio 1.6 (1.0-2.8); Alkaline Phosphatase 37 U/L (38-126); Aspartate Aminotransferase 24 IU/L (14-36); BUN Creatinine Ratio 25.9 (6-22); Bilirubin Total 0.4 mg/dL (0.2-1.3); Blood Urea Nitrogen 22 mg/dL (7-17); Calcium 9.1 mg/dL (8.4-10.2); Carbon Dioxide 26 mmol/L (22-32); Chloride 107 mmol/L (98-107); Estimated Glomerular Filt Rate > 60.0 mL/min (>60); Globulin 2.7 g/dL (1.7-4.1); Glucose 138 mg/dL (80-110); HEMOLYSIS < 15 (0-50); Phosphorous 3.8 mg/dL (2.8-4.1); Potassium 3.7 mmol/L (3.4-5.1); Sodium 137 mmol/L (137-145); Total Protein 7.1 g/dL (6.3-8.2)
[2021-10-13 07:37] LABS: Add Manual Diff / Slide Review NO; Basophils Absolute Auto 0 /uL (0-100); Basophils Percent Auto 0.6 % (0-2); Eosinophils Absolute Auto 100 /uL (0-450); Eosinophils Percent Auto 0.9 % (2-4); Hematocrit 42.4 % (36-46); Hemoglobin 14.6 g/dL (12.0-16.0); Lymphocytes Absolute Auto 900 /uL (1100-4500); Lymphocytes Percent Auto 12.3 % (25-40); Mean Corpuscular HGB Conc 34.4 % (30-36); Mean Corpuscular Hemoglobin 31.6 PG (26-34); Mean Corpuscular Volume 91.9 fL (80-100); Monocytes Absolute Auto 500 /uL (0-900); Monocytes Percent Auto 6.2 % (3-14); Neutrophils Absolute Auto 5900 /uL (1500-7000); Platelet Count 237 X10^3/uL (150-400); Red Blood Cell Count 4.61 X10^6/uL (4.0-5.2); Red Cell Distribution Width 12.5 % (11.6-14.8); White Blood Cell Count 7.4 X10^3/uL (4.5-11.0)
[2021-10-13 08:00] VITALS: BP 151/90; PULSE 83; RESP 18; TEMP 36.5; O2SAT 92; O2SAT 96
--- NOTE | 2021-10-13 09:22 | CM.DANOTE ---
Addendum entered by Jackelin Alexis R.N. 10/13/21 11:15: Met with patient and sister, Brandy Gallo, who is POA, at bedside. Brandy had inquired about the possibility of looking into [employer] caregivers. Mentioned that patient would need to qualify for Medicaid for G[employer]I to be initiated. Did give Brandy a Medicaid application. Also, brought her a Senior Resources Book, showing various in home care agencies. Discussed home health option, which sister and patient think is a good idea. They have no preferences upon agencies. Discussed that patient would benefit with nursing, P.T, O.T, JEWEL[employer] CUTTER for caregiving resources, as well as a bath aide. Sister is planning on staying with her for a few days, and having a shower aide would really help. She worries about her being able to navigate the couple of steps in her home. Called [employer], which is on the calendar, and they are booked out until about the 17. Called [facility] and spoke to Carter. He mentioned that so far, the 13th is next availability, but things may be able to be moved around if needed. Discussed this patient, and mentioned that this patient resides alone, sister will be staying with her for a couple of days, and that some resources were given, which is why [facility] would be a good resource, as well as nurse, P.T, O.T, and bath aide. Carter will have team review to see if she can be seen sooner. Had hospitalist sign face to face, and faxed over face sheet noting sister as main contact, orders, face to face, H&P, and DC Summary. Patient has not yet worked with the P.T team here. Plan at this time is home with [facility]. Original Note: DCP: Case received, EMR reviewed and met with patient. Introduced self and role. Was able to obtain information from patient regarding her baseline activity status at home. DCP assessment completed with information currently available. Patient is a 66 year old female who admitted yesterday morning to the care of the hospitalist team. PCP: MANJULA Arriola at [facility]. Payer: confirmed: Medicare/[employer]. Patient came to the hospital via ambulance secondary to her having dizziness, and left sided weakness. Patient has history of MS, and according to notes, is not uncommon to have this sided weakness. Patient was originally supposed to have a surgical procedure at [facility], due to Necrosis of Left Hip, but surgery was cancelled, as hospital is full. She came to the hospital due to weakness and dizziness. Patient's sister had called and left a message, concerned about patient's discharge, but did not yet speak to her. Met with patient in her room. She is alert and oriented, pleasant. Confirmed that she resides alone here in [place]. She was scheduled for hip surgery, which got postponed due to [facility] being full. She uses a walker at baseline. She stated, until I have the surgery, I will be using my walker. She did give permission to contact her sister, Brandy Gallo, who is her POA for any concerns. Patient does not drive, sister gets her groceries, and lives nearby. Patient changed from Dr. Guerrero, to nurse practioner at the [facility] clinic. Patient will be working with P.T. P: KELSEYP to continue to follow. Discussed home health options, which patient does not object with. Will see how she does with the therapy team. Jackelin Alexis RN/Stock Wetter Discharge Planning/Care Management CM Discharge Assessment Start: 10/13/21 09:12 Freq: Status: Active Protocol: Document 10/13/21 09:12 (Rec: 10/13/21 09:22 [id number]) Discharge Planning Assessment Assigned Refining Machine Operator Jackelin Alexis RN/Stock Wetter Advance Directives? Yes: DPOA Advance Directives on File No History Provided By Patient,Medical Record Prior Living Arrangements House Household Members none Type of transporation used prior to Relies on Others admit Independent with ADL's Yes Needs Assistance With Home Chores / Shopping Caregiver for Another No DME Already Rented / Owned FWW / Walker,Cane Barriers to Discharge Yes Comment Lives alone, has MS, balance issues. Discharge Plan Home with Home Health Transportation Arrangement Sister Referrals Initiated Other Additional Comment Have not yet initiated referral. Whiteboard Updated in Patient Room with Yes name and ext. # of Refining Machine Operator Review Status In Process Next Review Type Continued Stay Review
--- NOTE | 2021-10-13 09:45 | PM.DS.1 ---
History of Present Illness History of Present Illness Chief complaint: Dizzy Narrative: THIS IS A 66-YEAR-OLD FEMALE WITH A HISTORY OF MULTIPLE SCLEROSIS WHOPRESENTED TO THE HOSPITAL ER WITH REPORTED DIFFICULTY WITH SIGNIFICANT VERTIGO/DIZZINESS WELL SLLURED SPEECH. PATIENT STATED THAT SHE WOKE UP THIS MORNING AROUND 2:00 A.M. AND ATTEMPTED TO GO TO THE BATH AND FELT VERY DIZZY. SHE ALSO STATED THAT SHE MANAGED TO GO TO THE BATHROOM AND BACK TO BED WHERE SHE SLEPT FOR A COUPLE OF HOURS SHE ONCE AGAIN WOKE UP AROUND 4:00 A.M. AND FELT DIZZY ONCE AGAIN. HER SISTER NOTICED PATIENT TO HAVE SOME MILD FACIAL DROOPING WELL DIFFICULTY WITH SPEECH AND DECIDED TO CALL 911. HOWEVER BY THE TIME THE EMERGENCY PERSONAL HAD ARRIVED, HAS SYMPTOMS HAD MOSTLY RESOLVED EXCEPT FOR HER VERTIGO/ DIZZINESS. IN THE ER, HER WORKUP WAS FAIRLY DENY. HER BLOOD PRESSURE SIGNIFICANTLY ELEVATED WELL. SHE REPORTEDLY DOES NOT TAKE ANY BP MEDS Discharge Providers Provider Date of admission: 10/12/21 10:13 Discharge Date: 10/13/21 Primary care physician: Veronica Guerrero DO Consults: 10/12/21 11:04 Consult to Discharge Planning Routine Comment: Consult to Occupational Therapy Evaluate & Treat Comment: Physician Instructions: Evaluate and treat Consult to Physical Therapy Evaluate & Treat Comment: Physician Instructions: Evaluate and Treat Discharge provider: Brian Lamar DO Summary Hospital Course Discharge Diagnosis: POSSIBLE TIA. DISCHARGE ON STATIN, ASPIRIN, AND ANTIHYPERTENSIVE POSSIBLE HYPERTENSIVE URGENCY. DISCHARGED ON CARVEDILOL AND AMLODIPINE ?DYSLIPIDEMIA PER HISTORY. ON STATIN ?REACTIVE LEUKOCYTOSIS. RESOLVED ?ANXIETY DEPRESSION PER HISTORY ?OVERWEIGHT.? BMI OF 28 ? 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 PATIENT HAS PLAN FOR PATIENT'S SURGERY POSSIBLE VERTIGO. DISCHARGED ON MECLIZINE Hospital Course: PATIENT TREATED IN THE HOSPITAL FALL REPORTED SIGNS OF TIA VERSUS CVA. A TIA IS A POSSIBILITY AT THIS TIME. WORKUP NEGATIVE CTA OF THE HEAD AND NECK DID NOT SHOW ANY SIGNIFICANT STENOSIS NO EVIDENCE OF ACUTE CVA ON CT SCAN WITH CONTRAST. HER SYMPTOMS HAD COMPLETELY RESOLVED EVEN BEFORE BEING BROUGHT TO THE HOSPITAL. PATIENT DOES HAVE SOME WEAKNESS TO THE LEFT LOWER AND UPPER EXTREMITY HOWEVER THIS IS ASSOCIATED WITH MULTIPLE SCLEROSIS. SHE APPEARS TO BE AT BASELINE AT THIS TIME. SHE WILL BE ON ASPIRIN, STATIN, CARVEDILOL AND AMLODIPINE FOR BLOOD PRESSURE CONTROL. PATIENT HAS BEEN PRESCRIBED MECLIZINE WELL FOR THE REPORTED DIZZINESS/VERTIGO ADDITIONAL MANAGEMENT DEFERRED TO OUTPATIENT PROVIDERS IF NEEDED, A MRI COULD BE ORDERED OUTPATIENT Status at Discharge Cognitive/behavioral status at discharge: oriented Functional status at discharge: independent ambulation Overall status at discharge: patient is back to baseline Time Spent with Patient Time spent: Greater than 30 minutes Exam Vital Signs (past 8 hours): - 10/13/21 02:00 10/13/21 04:00 10/13/21 06:00 Temperature 98.2 F 97.8 F Pulse Rate 90 82 Respiratory Rate 18 16 Blood Pressure 135/92 H 154/95 H Pulse Oximetry 93 94 94 10/13/21 08:00 Temperature 97.7 F Pulse Rate 83 Respiratory Rate 18 Blood Pressure 151/90 H Pulse Oximetry 92 Oxygen Delivery Method Room Air Oxygen Flow Rate 0 Narrative Exam Narrative: NO ACUTE DISTRESS.? OVERWEIGHT. VITAL SIGNS STABLE HEAD ATRAUMATIC NORMOCEPHALIC NECK : SUPPLE WITHOUT ADENOPATHY NO CAROTID BRUITS EYE:? EOMI, PERRLA, NORMAL CONJUNCTIVA; NO JAUNDICE CHEST:? REGULAR RATE.? ? NO RUBS.? PMI IS NON DISPLACED.? NO MURMURS; NORMAL S1-S2 PULMONARY:? DECREASED BS OVER THE BASES.? MILD BIBASILAR CRACKLES NOTED; NO INCREASED DULLNESS TO PERCUSSION ABDOMEN:? SOFT.? NONTENDER.? NONDISTENDED.? BOWEL SOUNDS ARE PRESENT IN ALL 4 QUADRANTS.? NO MASS. EXTREMITIES:? 1+ NONPITTING BILATERAL LOWER EXTREMITY EDEMA..? NO CYANOSIS CLUBBING NOTED. NEURO:? CRANIAL NERVES 2-12 GROSSLY INTACT. NO FOCAL NEUROLOGICAL DEFICIT NOTED. MSK:? NORMAL RANGE OF MOTION FOR AGE.? NO JOINT EFFUSION. SKIN:? NORMAL FOR ETHNICITY; NO ECCHYMOSIS.? NO LESION. ? GOOD? TURGOR.; NO RASHES :? NORMAL EXTERNAL GENITALIA. PSYCH :? APPROPRIATE MOOD AND AFFECT.? ALERT AWAKE ORIENTED X3 Objective Labs Result Diagrams: 10/13/21 07:01 10/13/21 07:01 Labs: Laboratory Results - last 24 hr 10/12/21 10/12/21 10/12/21 06:50 06:50 20:40 WBC RBC Hgb Hct MCV MCH MCHC RDW Plt Count Neut % (Auto) Lymph % (Auto) [place] % (Auto) Eos % (Auto) Baso % (Auto) Neut # (Auto) Lymph # (Auto) [place] # (Auto) Eos # (Auto) Baso # (Auto) Sodium Potassium Chloride Carbon Dioxide BUN Creatinine Estimated GFR BUN/Creatinine Ratio Glucose Calcium Phosphorus Total Bilirubin AST ALT Alkaline Phosphatase Total Protein Albumin Globulin Albumin/Globulin Ratio Triglycerides 204 H Cholesterol 173 LDL Cholesterol, Calc 85 HDL Cholesterol 47 Urine Color Yellow Urine Appearance Sl cloudy Urine pH 7.0 Ur Specific [place] 1.020 Urine Protein Negative Urine Glucose (UA) Negative Urine Ketones Negative Urine Occult Blood Trace-lysed Urine Nitrate Negative Urine Bilirubin Negative Urine Urobilinogen 0.2 Ur Leukocyte Esterase Negative Urine RBC None seen Urine WBC None seen Amorphous Sediment 3+ Urine Bacteria None seen Ur Culture Indicated? Cult not indicated Serum VDRL Non reactive 10/13/21 10/13/21 07:01 07:01 WBC 7.4 D RBC 4.61 Hgb 14.6 Hct 42.4 MCV 91.9 MCH 31.6 MCHC 34.4 RDW 12.5 Plt Count 237 Neut % (Auto) 80.0 H Lymph % (Auto) 12.3 L [place] % (Auto) 6.2 Eos % (Auto) 0.9 L Baso % (Auto) 0.6 Neut # (Auto) 5900 Lymph # (Auto) 900 L [place] # (Auto) 500 Eos # (Auto) 100 Baso # (Auto) 0 Sodium 137 Potassium 3.7 Chloride 107 Carbon Dioxide 26 BUN 22 H Creatinine 0.85 Estimated GFR > 60.0 BUN/Creatinine Ratio 25.9 H Glucose 138 H Calcium 9.1 Phosphorus 3.8 Total Bilirubin 0.4 AST 24 ALT 25 Alkaline Phosphatase 37 L Total Protein 7.1 Albumin 4.4 Globulin 2.7 Albumin/Globulin Ratio 1.6 Triglycerides Cholesterol LDL Cholesterol, Calc HDL Cholesterol Urine Color Urine Appearance Urine pH Ur Specific [place] Urine Protein Urine Glucose (UA) Urine Ketones Urine Occult Blood Urine Nitrate Urine Bilirubin Urine Urobilinogen Ur Leukocyte Esterase Urine RBC Urine WBC Amorphous Sediment Urine Bacteria Ur Culture Indicated? Serum VDRL [facility] Medical History Anesthesia Anxiety (12/10/14) Chronic back pain Chronic thoracic back pain Depression (12/10/14) Endometriosis (~1973) Fibroids (~1976) Gastroesophageal reflux disease (04/28/15) Insomnia due to other mental disorder (10/11/16) Left buttock pain Left rib fracture (~11/2014) Lower back pain Mixed hyperlipidemia (10/11/16) Multiple sclerosis, primary progressive (~02/2015) Osteopenia Overweight (BMI 25.0-29.9) Prediabetes (10/11/16) Rosacea blepharoconjunctivitis Segmental and somatic dysfunction of rib cage Sprain of left foot Tobacco use disorder (12/10/14) Surgical History History of tonsillectomy (~1958) S/P epidural steroid injection Status post cholecystectomy (~2007) Status post hysterectomy (~1990) Family History (Updated 05/29/20 @ 13:31 by Veronica Guerrero DO) Mother Hyperlipidemia Lung cancer Alcoholism Anxiety Insomnia, unspecified type Hypertension Tobacco use disorder Macular degeneration Abdominal aortic aneurysm (AAA) without rupture Carotid artery disease, unspecified laterality Sister Hypertension High cholesterol Father No problems noted. Sister Hyperlipidemia Hypertension Social History household members: none Smoking Status: Current every day smoker alcohol intake: former Discharge Plan Discharge Plan Patient Disposition: Home Discharge orders & Medications Prescriptions: New aspirin 81 mg Tablet,Delayed Release (Dr/Ec) 162 mg PO DAILY Qty: 60 0RF carvedilol [Coreg] 3.125 mg Tablet 3.125 mg PO BID Qty: 60 2RF atorvastatin 80 mg tablet 80 mg PO DAILY Qty: 60 0RF Continued Ocrevus 30 mg/mL solution 600 mg IV [id number] 0RF diazepam 5 mg tablet 5 mg PO TID PRN (Reason: anxiety) Qty: 270 1RF duloxetine 30 mg capsule,delayed release(DR/EC) 30 mg PO BID Qty: 180 3RF pregabalin 50 mg capsule See Rx Instructions .ROUTE .COMPLEX Qty: 270 1RF Rx Instructions: 50mg (1 cap) every morning and 100mg (2 caps) every bedtime paroxetine HCl 30 mg tablet 60 mg PO QDAY Qty: 180 3RF carisoprodol 350 mg tablet See Rx Instructions .ROUTE .COMPLEX Qty: 270 3RF Dose Instruction: TAKE ONE TABLET BY MOUTH THREE TIMES DAILY Rx Instructions: TAKE ONE TABLET BY MOUTH THREE TIMES DAILY ergocalciferol (vitamin D2) [Vitamin D2] 1,250 mcg (50,000 unit) capsule 50,000 unit PO QWEEK Qty: 12 0RF B12 See Rx Instructions .ROUTE .COMPLEX 0RF Rx Instructions: shot once a month trazodone 50 mg tablet 100 mg PO BEDTIME PRN (Reason: insomnia) Qty: 180 1RF fenofibrate 160 mg tablet 160 mg PO DAILY Qty: 90 1RF buspirone 10 mg tablet See Rx Instructions .ROUTE .COMPLEX Qty: 540 0RF Dose Instruction: TAKE 2 TABLETS (20MG) THREE TIMES A DAY (MAX DAILY DOSE 60MG) Rx Instructions: TAKE 2 TABLETS (20MG) THREE TIMES A DAY (MAX DAILY DOSE 60MG) diclofenac sodium 0.1 % drops 1 drop EYE-BOTH BID 0RF Discontinued rosuvastatin 40 mg tablet 40 mg PO DAILY 0RF Rx Instructions: TAKE 1 TABLET EVERY DAY No Action (DME) disabled parking permit Qty: 1 0RF Rx Instructions: I find this patient to be medically disabled and qualified for disabled parking as indicated, and signed, on the accompanying Disabled Parking Application for Individuals ; Follow up/Referrals: Veronica Guerrero DO [Primary Care Provider] - Diet/Activity/Treatments Diet: Low-fat and Low-cholesterol Activity: TOLERATED. FALL PRECAUTION AT ALL TIMES Skin/Wound/Dressing Care Report to your healthcare provider any signs of infection, such as:: chills, fever and night sweats Discharge Data Primary Care Provider: Veronica Guerrero Attending Provider: Brian Laamr VTE Deep Vein Thrombosis/Pulmonary Embolism Present on Admission: No
[2021-10-13] MEDS: ASPIRIN EC 81 MG TABLET 162 MG PO (09:46)
[2021-10-13] MEDS: BUSPIRONE 5 MG TABLET 20 MG PO (09:56)
[2021-10-13] MEDS: ATORVASTATIN 20 MG TABLET 80 MG PO (09:56)
[2021-10-13] MEDS: DULOXETINE 30 MG CAPSULE PO (09:57)
[2021-10-13] MEDS: FENOFIBRATE, MICRONIZED 67 MG CAPSULE 201 MG PO (09:57)
[2021-10-13] MEDS: PARoxetine 20 MG TABLET 60 MG PO (09:57)
[2021-10-13] MEDS: ENOXAPARIN 40 MG/0.4 ML SYRINGE SUBCUT (09:58)
[2021-10-13] MEDS: PREGABALIN 50 MG CAPSULE PO (09:59)
[2021-10-13 10:43] VITALS: BP 151/90
[2021-10-13] MEDS: carvediloL 3.125 MG TABLET PO (10:43)
[2021-10-13] MEDS: MECLIZINE HCL 12.5 MG TABLET 25 MG PO (10:43)
[2021-10-13] MEDS: diazePAM 5 MG TABLET PO (11:47)
--- NOTE | 2021-10-13 12:00 | PT-IP ANOTE ---
Met with pt at bedside x 2 this morning. She stated her dizziness had largely resolved but that she had new onset nausea today and hoped to be medicated prior to mobility. Pt refused PT.
--- NOTE | 2021-10-13 12:41 | PC.NURSE ---
Addendum entered by Carmen Zheng R.N. 10/13/21 12:52: Pt escorted by staff via W/C to waiting vehicle D/C in stable condition Original Note: Pt received discharge orders, Home instructions & RX given w/understanding. HL discontinued intact. Tele D/C'd Awaiting ride
== END 2021-10-13 12:45 | disposition home or self-care (01) ==
LOC: ED 09:32 → AC 10:14
PROVIDERS: Emergency Medicine; Admitting Provider Hospitalist; Emergency Provider Emergency Medicine; PCP Family Medicine; Referring Provider Emergency Medicine; Visit Provider Hospitalist
DX: R42 Dizziness and giddiness (principal); F41.9 Anxiety disorder, unspecified; D72.829 Elevated white blood cell count, unspecified; G35 Multiple sclerosis; E78.5 Hyperlipidemia, unspecified; M87.9 Osteonecrosis, unspecified; E66.3 Overweight; Z68.28 Body mass index [BMI] 28.0-28.9, adult; F17.210 Nicotine dependence, cigarettes, uncomplicated; R29.701 NIHSS score 1; Z20.822 Contact with and (suspected) exposure to COVID-19
CPT/HCPCS: 36415; 70450; 70496; 70498; 80053; 80061; 81001; 81003; 82550; 83690; 83735; 84100; 84484; 85025; 86592; 87635; 93005; 93010; 93306; 96372; 99284; C9803; G0378; J1650

== ENCOUNTER 2021-12-06 08:25 | Inpatient (IN) | payer MEDICARE, OTHER, SELFPAY ==
[2021-10-12 12:06] VITALS: BMI 27.8
[2021-12-06] VITALS (25 sets, daily range): BP systolic 108–183; BP diastolic 46–90; PULSE 57–74; RESP 14–24; TEMP 36.2–37.3; O2SAT 90–97; BMI 27.6; BMI 26.6
--- NOTE | 2021-12-06 | DI.RAD.S_ITS ---
PROCEDURE: XR FEMUR RT MIN 2V INDICATIONS: right intramedulary femur nailing TECHNIQUE: 4 fluoroscopic spot films were obtained intraoperatively. COMPARISON: None. FINDINGS: For low resolution fluoroscopic spot films show intramedullary nail and fixation screws associated with dynamic femoral head compression screw in good position IMPRESSION: Fluoroscopic guidance Approved by: Parker Hauser M.D. on 12/06/2021 at 17:53
--- NOTE | 2021-12-06 | DI.RAD.S_ITS ---
PROCEDURE: XR FEMUR RT MIN 2V INDICATIONS: post op TECHNIQUE: 2 views of the femur were acquired. COMPARISON: [facility], CR, XR HIP W PEL IF DONE RT 2V, 12/06/2021, 8:42. [facility], LYNDSAY, XR FEMUR RT MIN 2V, 12/06/2021, 17:55. FINDINGS: Bones: Right femoral yolanda and pin fixation is present. Hardware is intact. Fracture lucency at the proximal femoral fracture is present. Soft tissues: No suspicious soft tissue calcifications or masses. IMPRESSION: Good anatomic alignment of right femoral fracture fixation. Dictated by: Uma Edmond M.D. on 12/06/2021 at 19:17 Approved by: Uma Edmond M.D. on 12/06/2021 at 19:18
--- NOTE | 2021-12-06 08:28 | DI.RAD.S_ITS ---
PROCEDURE: XR HIP W PEL IF DONE RT 2V INDICATIONS: fall pain femur pain TECHNIQUE: AP pelvis with lateral view(s) of the right hip(s). COMPARISON: [facility], , XR HIP W PEL IF DONE RT 2V, 08/02/2021, 14:35. FINDINGS: Bones: There is a minimally displaced fracture of the superior right femoral diaphysis. No other fracture or dislocation. Moderate degenerative changes are present at the right hip joint. Soft tissues: The visualized bowel gas pattern is normal. No suspicious soft tissue calcifications. IMPRESSION: Superior right femoral diaphyseal fracture. Dictated by: Lynne Reyes M.D. on 12/06/2021 at 9:04 Approved by: Lynne Reyes M.D. on 12/06/2021 at 9:05
--- NOTE | 2021-12-06 08:34 | ED.LOWEXIN ---
HPI - Extremity Injury (Lower) General Chief Complaint: Extremity Injury, Lower Stated Complaint: right femur pain Time Seen by Provider: 12/06/21 08:28 History of Present Illness HPI Narrative: Patient is a 66-year-old female with history of TIA, hypertension, hyperlipidemia known avascular necrosis of her right hip. She had some surgeries done at at [facility] at the end of October. She has continued to have pain. She was seen and evaluated by orthopedics he yesterday who according to her stated he would not do any more surgery until she stops smoking she quit today. Found that she had a mechanical fall she went to get the door locking device out from underneath the door handle when she fell and felt a pop in her right femur. Unable to bear weight. Able to move her toes. She did not hit her head or lose consciousness. She is taking aspirin daily. She denies any chest pain dizziness lightheadedness or other symptoms. Related Data Home Medications Medication Instructions Recorded Confirmed diclofenac sodium 0.1 % eye drops 1 drop EYE-BOTH BID ml 09/12/19 10/12/21 amlodipine 2.5 mg tablet 2.5 mg PO DAILY 12/06/21 12/06/21 ergocalciferol (vitamin D2) 25,000 50,000 unit PO QWEEK 12/06/21 12/06/21 unit capsule meclizine 25 mg capsule 25 mg PO BID PRN 12/06/21 12/06/21 ocrelizumab 30 mg/mL intravenous 600 mg IV [id number] 12/06/21 12/06/21 solution (Ocrevus) paroxetine HCl 30 mg tablet 60 mg PO BEDTIME 12/06/21 12/06/21 pregabalin 50 mg capsule See Rx Instructions .ROUTE .COMPLEX 12/06/21 12/06/21 Previous Rx's Medication Instructions Recorded disabled parking permit #1 ea 05/13/19 carisoprodol 350 mg tablet See Rx Instructions .ROUTE 06/22/21 .COMPLEX #270 tab diazepam 5 mg tablet 5 mg PO TID PRN #270 tab 08/01/21 duloxetine 30 mg capsule,delayed 30 mg PO BID #180 cap 08/01/21 release trazodone 50 mg tablet 100 mg PO BEDTIME PRN #180 tab 08/18/21 fenofibrate 160 mg tablet 160 mg PO DAILY #90 tab 08/24/21 aspirin 81 mg tablet,delayed 162 mg PO DAILY #60 tab 10/13/21 release atorvastatin 80 mg tablet 80 mg PO DAILY #60 tab 10/13/21 carvedilol 3.125 mg tablet (Coreg) 3.125 mg PO BID #60 tab 10/13/21 buspirone 10 mg tablet See Rx Instructions .ROUTE 11/08/21 .COMPLEX #540 tab Allergies Allergy/AdvReac Type Severity Reaction Status Date / Time niacin [NIACIN] AdvReac Intermediate PASS OUT Verified 12/06/21 08:35 Review of Systems Review of Systems Narrative: GENERAL: Denies chills, fatigue, malaise, fever, sweats, travel HEENT: Denies sinus pain, ear pain, sore throat, difficulty swallowing, neck pain RESPIRATORY: Denies dyspnea, cough, wheezing, hemoptysis, sputum. CARDIOVASCULAR: Denies chest pain, palpitations, orthopnea, edema GASTROINTESTINAL: Denies nausea, vomiting, abdominal pain, diarrhea, constipation, melena. : Denies dysuria, frequency, incontinence, hematuria, urinary retention, flank pain. MUSCULOSKELETAL: See HPI SKIN: No rash, no erythema, no pruritus NEUROLOGIC: Denies weakness, dizziness, headache, numbness, change in speech, confusion PSYCHIATRIC: No concerning psychosocial issues. 12 point review of systems is negative except for those stated above and HPI Patient History Medical History Anesthesia Anxiety (12/10/14) Chronic back pain Chronic thoracic back pain Depression (12/10/14) Endometriosis (~1973) Fibroids (~1976) Gastroesophageal reflux disease (04/28/15) Insomnia due to other mental disorder (10/11/16) Left buttock pain Left rib fracture (~11/2014) Lower back pain Mixed hyperlipidemia (10/11/16) Multiple sclerosis, primary progressive (~02/2015) Osteopenia Overweight (BMI 25.0-29.9) Prediabetes (10/11/16) Rosacea blepharoconjunctivitis Segmental and somatic dysfunction of rib cage Sprain of left foot Tobacco use disorder (12/10/14) Surgical History History of tonsillectomy (~1958) S/P epidural steroid injection Status post cholecystectomy (~2007) Status post hysterectomy (~1990) Family History Mother Hyperlipidemia Lung cancer Alcoholism Anxiety Insomnia, unspecified type Hypertension Tobacco use disorder Macular degeneration Abdominal aortic aneurysm (AAA) without rupture Carotid artery disease, unspecified laterality Sister Hypertension High cholesterol Father No problems noted. Sister Hyperlipidemia Hypertension Social History household members: none Smoking Status: Current every day smoker alcohol intake: former Smoking Status: Current every day smoker alcohol intake frequency: 0-2 drinks per day Substance Use Type: does not use Exam Initial Vital Signs Initial Vital Signs: Vital Signs Temperature 97.1 F L 12/06/21 08:27 Pulse Rate 72 12/06/21 08:27 Respiratory Rate 24 12/06/21 08:27 Blood Pressure 152/82 H 12/06/21 08:27 Pulse Oximetry 96 12/06/21 08:27 GENERAL: Alert well-appearing 66-year-old female HEENT: Head atraumatic,EOMI, pupils reactive, face symmetric, [moist] mucous membranes NECK: No vertebral tenderness no step-off CARDIOVASCULAR: Regular rate and rhythm without murmurs, rubs or gallops. RESPIRATORY: Breath sounds equal bilaterally, no wheezes rales or rhonchi. ABDOMEN: Soft, nontender. Normoactive bowel sounds all 4 quadrants. No guarding or rebound. EXTREMITIES: Normal range of motion, no clubbing or edema. Neurovascularly intact Mild tenderness in right hip no deformity felt or seen an femur distal pedal pulse intact able to move toes NEUROLOGICAL: Alert and oriented x4. SKIN: Warm, dry, no laceration, no petechiae, no rashes or lesions. Scores GCS Critz coma scale eye opening: Spontaneous Grace coma scale verbal response: Orientated Critz coma scale motor response: Obey commands Grace coma scale total score: 15 Course Orders Ordered: ED Orders 12/06/21 08:28 XR hip w pel if done RT 2V Stat 12/06/21 09:14 Chest [XR chest 1V] Stat EKG-12 Lead Stat 12/06/21 09:26 CBC Auto Diff [Complete Blood Count AUTO DIFF] Stat CMP [Comprehensive Metabolic Panel] Stat Troponin & CK Cardiac Panel Stat 12/06/21 09:41 Urinalysis and Microscopic Stat 12/06/21 09:42 COVID19 -Nasal swab/Pre-Proc Stat Hydromorphone HCl (Hydromorphone 0.5 Mg Inj) 0.5 mg IV Q3H PRN PRN Reason: Pain, Moderate (4-6) Stop: 12/07/21 09:00 Last Admin: 12/06/21 12:39 Dose: 0.5 mg Documented by: AUBREY Sodium Chloride (Normal Saline 0.9%) 1,000 mls @ 125 mls/hr IV BOLUS ONE Stop: 12/06/21 17:49 Last Infusion: 12/06/21 12:15 Dose: 0 mls/hr Documented by: Admin: 12/06/21 10:17 Dose: 125 mls/hr Documented by: TAMMY Ondansetron HCl (Ondansetron 4 Mg/2 Ml Inj) 4 mg IV Q6HR PRN PRN Reason: Nausea And Vomiting Stop: 12/07/21 09:00 Discontinued Medications Hydromorphone HCl (Hydromorphone 0.5 Mg Inj) 0.5 mg IV NOW ONE Stop: 12/06/21 08:38 Last Admin: 12/06/21 08:41 Dose: 0.5 mg Documented by: AUBREY Vital Signs Vital signs: Vital Signs - 8 hr 12/06/21 08:27 12/06/21 08:28 12/06/21 08:29 Temperature 97.1 F L Pulse Rate 72 73 71 Respiratory Rate 24 21 18 Blood Pressure 152/82 H 143/76 H Pulse Oximetry 96 97 96 12/06/21 08:30 12/06/21 09:00 12/06/21 09:28 Temperature Pulse Rate 74 64 64 Respiratory Rate 19 18 Blood Pressure 152/82 H 153/69 H Pulse Oximetry 97 92 94 12/06/21 09:30 Temperature Pulse Rate 61 Respiratory Rate 19 Blood Pressure 147/72 H Pulse Oximetry 94 MDM - Extremity Injury (Lower) Lab Data Result diagrams: 12/06/21 09:26 12/06/21 09:26 Labs: Lab Results 12/06/21 12/06/21 12/06/21 Range/Units 09:26 09:26 09:41 WBC 4.9 (4.5-11.0) X10^3/uL RBC 4.52 (4.0-5.2) X10^6/uL Hgb 14.3 (12.0-16.0) g/dL Hct 42.5 (36-46) % MCV 94.2 (80-100) fL MCH 31.7 (26-34) PG MCHC 33.6 (30-36) % RDW 13.3 (11.6-14.8) % Plt Count 235 (150-400) X10^3/uL Neut % (Auto) 68.5 (50-75) % Lymph % (Auto) 18.4 L (25-40) % Christian % (Auto) 10.0 (3-14) % Eos % (Auto) 2.4 (2-4) % Baso % (Auto) 0.7 (0-2) % Neut # (Auto) 3400 (8687-6513) /uL Lymph # (Auto) 900 L (0216-1154) /uL Christian # (Auto) 500 (0-900) /uL Eos # (Auto) 100 (0-450) /uL Baso # (Auto) 0 (0-100) /uL Sodium 141 (137-145) mmol/L Potassium 3.6 (3.4-5.1) mmol/L Chloride 105 (98-107) mmol/L Carbon Dioxide 32 (22-32) mmol/L BUN 21 H (7-17) mg/dL Creatinine 0.85 (0.52-1.04) mg/dL Estimated GFR > 60.0 (>60) mL/min BUN/Creatinine Ratio 24.7 H (6-22) Glucose 124 H (80-110) mg/dL Calcium 8.9 (8.4-10.2) mg/dL Total Bilirubin 0.4 (0.2-1.3) mg/dL AST 26 (14-36) IU/L ALT 27 (<35) IU/L Alkaline Phosphatase 46 (38-126) U/L Total Creatine Kinase 35 (30-135) U/L CK-MB (CK-2) TNP CK-MB (CK-2) Rel Index TNP Troponin I < 0.012 (0.01-0.034) ng/mL Total Protein 7.2 (6.3-8.2) g/dL Albumin 4.4 (3.5-5.0) g/dL Globulin 2.8 (1.7-4.1) g/dL Albumin/Globulin Ratio 1.6 (1.0-2.8) Urine Color Yellow Urine Appearance Clear Urine pH 6.5 (4.5-8.0) Ur Specific [place] 1.015 (1.000-1.035) Urine Protein Negative (Negative) Urine Glucose (UA) Trace H (Negative) g/dL Urine Ketones Negative (NEGATIVE) Urine Occult Blood Negative (Negative) Urine Nitrate Negative (Negative) Urine Bilirubin Negative (NEGATIVE) Urine Urobilinogen 0.2 (0.2) E.U./dL Ur Leukocyte Esterase Negative (NEGATIVE) Urine RBC 1-5/hpf (0-5/HPF) Urine WBC 1-5/hpf (0-5/HPF) Ur Squamous Epith Cells 1-5 /hpf (0-5/HPF) Amorphous Sediment 1+ Urine Bacteria Few (2-10) H (None) Ur Culture Indicated? Cult not indicated SARS-CoV-2 (PCR) (Negative) 12/06/21 Range/Units 09:42 WBC (4.5-11.0) X10^3/uL RBC (4.0-5.2) X10^6/uL Hgb (12.0-16.0) g/dL Hct (36-46) % MCV (80-100) fL MCH (26-34) PG MCHC (30-36) % RDW (11.6-14.8) % Plt Count (150-400) X10^3/uL Neut % (Auto) (50-75) % Lymph % (Auto) (25-40) % Christian % (Auto) (3-14) % Eos % (Auto) (2-4) % Baso % (Auto) (0-2) % Neut # (Auto) (6823-8031) /uL Lymph # (Auto) (2693-5879) /uL Christian # (Auto) (0-900) /uL Eos # (Auto) (0-450) /uL Baso # (Auto) (0-100) /uL Sodium (137-145) mmol/L Potassium (3.4-5.1) mmol/L Chloride (98-107) mmol/L Carbon Dioxide (22-32) mmol/L BUN (7-17) mg/dL Creatinine (0.52-1.04) mg/dL Estimated GFR (>60) mL/min BUN/Creatinine Ratio (6-22) Glucose (80-110) mg/dL Calcium (8.4-10.2) mg/dL Total Bilirubin (0.2-1.3) mg/dL AST (14-36) IU/L ALT (<35) IU/L Alkaline Phosphatase (38-126) U/L Total Creatine Kinase (30-135) U/L CK-MB (CK-2) CK-MB (CK-2) Rel Index Troponin I (0.01-0.034) ng/mL Total Protein (6.3-8.2) g/dL Albumin (3.5-5.0) g/dL Globulin (1.7-4.1) g/dL Albumin/Globulin Ratio (1.0-2.8) Urine Color Urine Appearance Urine pH (4.5-8.0) Ur Specific [place] (1.000-1.035) Urine Protein (Negative) Urine Glucose (UA) (Negative) g/dL Urine Ketones (NEGATIVE) Urine Occult Blood (Negative) Urine Nitrate (Negative) Urine Bilirubin (NEGATIVE) Urine Urobilinogen (0.2) E.U./dL Ur Leukocyte Esterase (NEGATIVE) Urine RBC (0-5/HPF) Urine WBC (0-5/HPF) Ur Squamous Epith Cells (0-5/HPF) Amorphous Sediment Urine Bacteria (None) Ur Culture Indicated? SARS-CoV-2 (PCR) Negative (Negative) Imaging Data Chest x-ray: Radiologist's Impression: PROCEDURE:? XR CHEST 1V ? INDICATIONS:? femur fracture ? TECHNIQUE:? One view of the chest was acquired.? ? COMPARISON:? None. ? FINDINGS:? ? Surgical changes and devices:? None.? ? Lungs and pleura:? Trace atelectasis is present in the left mid lung.? The lungs are otherwise clear.? No pleural effusion or pneumothorax. ? Mediastinum:? Mediastinal contours appear normal.? Heart size is normal.? ? Bones and chest wall:? No suspicious bony lesions.? Overlying soft tissues appear unremarkable.? ? IMPRESSION:? No acute cardiopulmonary findings. ? ? Dictated by: Lynne Reyes M.D. on 12/06/2021 at 9:45 ?? Extremity x-ray #1: Radiologist's Impression: PROCEDURE:? XR HIP W PEL IF DONE RT 2V ? INDICATIONS:? fall pain femur pain ? TECHNIQUE:? AP pelvis with lateral view(s) of the right hip(s).? ? COMPARISON:? [facility], CR, XR HIP W PEL IF DONE RT 2V, 08/02/2021, 14:35. ? FINDINGS:? ? Bones:? There is a minimally displaced fracture of the superior right femoral diaphysis.? No other fracture or dislocation.? Moderate degenerative changes are present at the right hip joint. ? Soft tissues:? The visualized bowel gas pattern is normal.? No suspicious soft tissue calcifications.? ? ? IMPRESSION:? Superior right femoral diaphyseal fracture. ? Dictated by: Lynne Reyes M.D. on 12/06/2021 at 9:04 ?? MDM Narrative Medical decision making narrative: Patient is found to have a nondisplaced right femur fracture. Pain controlled with dilaudid. 24-Dr. Maloney orthopedic has been updated on patient's symptoms and test results she states she is happy to take patient to the OR as long as patient does not want to go back to [facility]. Request that patient be admitted to hospitalist Dr. Saunders updated on patient's symptoms test results and accepts patient Discussed with patient she would actually like to go back to [facility] however severe bed shortage [facility] is on divert without any beds. Multiple other facilities also not accepting patients at this time. Discharge Plan Departure Patient Disposition: Admitted As Inpatient Clinical Impression: Fracture of right femur Admit Date/Time: 12/06/21 09:45 Admit Provider: Oriana Saunders
[2021-12-06] MEDS: HYDROMORPHONE 0.5 MG INJ IV ×3 (08:41→13:54)
--- NOTE | 2021-12-06 09:14 | DI.RAD.S_ITS ---
PROCEDURE: XR CHEST 1V INDICATIONS: femur fracture TECHNIQUE: One view of the chest was acquired. COMPARISON: None. FINDINGS: Surgical changes and devices: None. Lungs and pleura: Trace atelectasis is present in the left mid lung. The lungs are otherwise clear. No pleural effusion or pneumothorax. Mediastinum: Mediastinal contours appear normal. Heart size is normal. Bones and chest wall: No suspicious bony lesions. Overlying soft tissues appear unremarkable. IMPRESSION: No acute cardiopulmonary findings. Dictated by: Lynne Reyes M.D. on 12/06/2021 at 9:45 Approved by: Lynne Reyes M.D. on 12/06/2021 at 9:46
[2021-12-06 09:29] LABS: Add Manual Diff / Slide Review NO; Basophils Absolute Auto 0 /uL (0-100); Basophils Percent Auto 0.7 % (0-2); Eosinophils Absolute Auto 100 /uL (0-450); Eosinophils Percent Auto 2.4 % (2-4); Hematocrit 42.5 % (36-46); Hemoglobin 14.3 g/dL (12.0-16.0); Lymphocytes Absolute Auto 900 /uL (1100-4500); Lymphocytes Percent Auto 18.4 % (25-40); Mean Corpuscular HGB Conc 33.6 % (30-36); Mean Corpuscular Hemoglobin 31.7 PG (26-34); Mean Corpuscular Volume 94.2 fL (80-100); Monocytes Absolute Auto 500 /uL (0-900); Neutrophils Absolute Auto 3400 /uL (1500-7000); Neutrophils Percent Auto 68.5 % (50-75); Platelet Count 235 X10^3/uL (150-400); Red Blood Cell Count 4.52 X10^6/uL (4.0-5.2); Red Cell Distribution Width 13.3 % (11.6-14.8); White Blood Cell Count 4.9 X10^3/uL (4.5-11.0)
[2021-12-06 09:42] LABS: Alanine Aminotransferase 27 IU/L (<35); Albumin 4.4 g/dL (3.5-5.0); Albumin Globulin Ratio 1.6 (1.0-2.8); Alkaline Phosphatase 46 U/L (38-126); Aspartate Aminotransferase 26 IU/L (14-36); BUN Creatinine Ratio 24.7 (6-22); Bilirubin Total 0.4 mg/dL (0.2-1.3); Blood Urea Nitrogen 21 mg/dL (7-17); Calcium 8.9 mg/dL (8.4-10.2); Carbon Dioxide 32 mmol/L (22-32); Chloride 105 mmol/L (98-107); Creatine Kinase 35 U/L (30-135); Estimated Glomerular Filt Rate > 60.0 mL/min (>60); Globulin 2.8 g/dL (1.7-4.1); Glucose 124 mg/dL (80-110); HEMOLYSIS < 15 (0-50); Potassium 3.6 mmol/L (3.4-5.1); Sodium 141 mmol/L (137-145); Total Protein 7.2 g/dL (6.3-8.2)
[2021-12-06 09:53] LABS: Troponin I < 0.012 ng/mL (0.01-0.034)
[2021-12-06 09:58] LABS: Appearance Urine UA CLEAR; Bilirubin Urine UA NEGATIVE (NEGATIVE); Color Urine UA YELLOW; Glucose Urine UA TRACE g/dL (Negative); Ketones Urine UA NEGATIVE (NEGATIVE); Leukocyte Esterase Urine UA NEGATIVE (NEGATIVE); Nitrite Urine UA NEGATIVE (Negative); Occult Blood Urine UA NEGATIVE (Negative); Protein Urine UA NEGATIVE (Negative); Specific Gravity Urine UA 1.015 (1.000-1.035); Urobilinogen Urine UA 0.2 E.U./dL (0.2)
[2021-12-06 10:11] LABS: COVID19 -Nasal RAPID Negative (Negative)
[2021-12-06 10:16] LABS: Amorphous Sediment Urine 1+; Bacteria Urine Few (2-10); Culture Indicated Urine Cult Not Indicated; RBC Urine 1-5/HPF (0-5/HPF); Squamous Epithelial Cell Urine 1-5 /HPF (0-5/HPF); WBC Urine 1-5/HPF (0-5/HPF); pH Urine UA 6.5 (4.5-8.0)
[2021-12-06] MEDS: SODIUM CHLORIDE 0.9% 1,000 ML 125 ML IV (10:17)
--- NOTE | 2021-12-06 14:24 | PC.NURSE ---
Addendum entered by Bhakti Mistry R.N. 12/06/21 19:31: Patient back to her room at 1900. Report given to shift engineer rn. Patient is comfortable and lying supine. Addendum entered by Bhakti Mistry R.N. 12/06/21 16:39: Patient down to surgery around 1500. Heplocked before going down. Original Note: Assess- Patient is alert and oriented x3, she recently had a procedure done at [facility] involving her r.hip, she was taking something down off of the door and felt a pop in her r.hip, she now has a fx. Patient is going to go to surgery sometime today for repair. Given 0.5mg of iv dilaudid at 1230ish in er and then just given another dose at 1400. Patient has ivf infusing. She is lying supine with her leg down. She has a small incision to her r.hip and an abrasion to the back of her l.arm and a bruise to her r.arm. Otherwise skin is clear. Sister will be back to see patient after her surgery. She states that she has MS. Denies numbness or tingling down her r.leg or foot. PP x2 and patient is resting now.
[2021-12-06] MEDS: LACTATED RINGERS 1,000 ML 84 ML IV (15:28)
--- NOTE | 2021-12-06 16:02 | PM.HP.1 ---
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 She had a core decompression of her right hip with Dr. Fontaine at [facility] on 11/02/2021 she has been toe-touch weight-bearing which was supposed to finish 6 weeks postop. She has been using a walker. He has a 50 pack-year history of smoking. She states she just quit this morning. This was in order to be a candidate for an eventual total hip arthroplasty. This morning she was reaching to remove a bar from under the knob of her door which she uses as a security measure. When she pulled on this she felt a sharp pain in her thigh and a crack. She then slipped down the door onto the ground. But no set the pain when she was pulling the bar is what caused her to slide to the ground and not a fall. She was unable to ambulate was brought to [facility] where x-rays were taken demonstrated a nondisplaced subtrochanteric femur fracture. She denies any numbness tingling nausea or vomiting. States she is sensitive to narcotic medication gets constipation. She has MS and takes vitamin-D 84917 units weekly for this. No history of kidney stones no history of blood clots. No anticoagulation. Her sister is her primary contact. current PCP is [facility] Patient History Medical History Anesthesia Anxiety (12/10/14) Chronic back pain Chronic thoracic back pain Depression (12/10/14) Endometriosis (~1973) Fibroids (~1976) Gastroesophageal reflux disease (04/28/15) Insomnia due to other mental disorder (10/11/16) Left buttock pain Left rib fracture (~11/2014) Lower back pain Mixed hyperlipidemia (10/11/16) Multiple sclerosis, primary progressive (~02/2015) Osteopenia Overweight (BMI 25.0-29.9) Prediabetes (10/11/16) Rosacea blepharoconjunctivitis Segmental and somatic dysfunction of rib cage Sprain of left foot Tobacco use disorder (12/10/14) Surgical History History of tonsillectomy (~1958) S/P epidural steroid injection Status post cholecystectomy (~2007) Status post hysterectomy (~1990) Family & Social History Family History Mother Hyperlipidemia Lung cancer Alcoholism Anxiety Insomnia, unspecified type Hypertension Tobacco use disorder Macular degeneration Abdominal aortic aneurysm (AAA) without rupture Carotid artery disease, unspecified laterality Sister Hypertension High cholesterol Father No problems noted. Sister Hyperlipidemia Hypertension Social History: household members none Prior Living Arrangements House Safety & Behavioral: Feels Safe in Current Yes Environment Been Physically Hurt or No Threatened By a Person Suicidal Ideation Description None Suicide Plan Description No Plan Tobacco & Substance use: Tobacco type cigarettes Smoking Status Current every day smoker Smoking packs per day 1 alcohol intake former alcohol intake frequency 0-2 drinks per day Substance Use Type does not use Meds Home Medications and Allergies Home Medications Medication Instructions Recorded Confirmed Type disabled parking permit #1 ea 05/13/19 10/12/21 Rx carisoprodol 350 mg tablet See Rx Instructions .ROUTE 06/22/21 12/06/21 Rx .COMPLEX #270 tab diazepam 5 mg tablet 5 mg PO TID PRN #270 tab 08/01/21 12/06/21 Rx duloxetine 30 mg capsule,delayed 30 mg PO BID #180 cap 08/01/21 12/06/21 Rx release trazodone 50 mg tablet 100 mg PO BEDTIME PRN #180 tab 08/18/21 12/06/21 Rx fenofibrate 160 mg tablet 160 mg PO DAILY #90 tab 08/24/21 12/06/21 Rx aspirin 81 mg tablet,delayed 162 mg PO DAILY #60 tab 10/13/21 12/06/21 Rx release atorvastatin 80 mg tablet 80 mg PO DAILY #60 tab 10/13/21 12/06/21 Rx carvedilol 3.125 mg tablet (Coreg) 3.125 mg PO BID #60 tab 10/13/21 12/06/21 Rx buspirone 10 mg tablet See Rx Instructions .ROUTE 11/08/21 12/06/21 Rx .COMPLEX #540 tab amlodipine 2.5 mg tablet 2.5 mg PO DAILY 12/06/21 12/06/21 History ergocalciferol (vitamin D2) 25,000 50,000 unit PO QWEEK 12/06/21 12/06/21 History unit capsule meclizine 25 mg capsule 25 mg PO BID PRN 12/06/21 12/06/21 History ocrelizumab 30 mg/mL intravenous 600 mg IV [id number] 12/06/21 12/06/21 History solution (Ocrevus) paroxetine HCl 30 mg tablet 60 mg PO BEDTIME 12/06/21 12/06/21 History pregabalin 50 mg capsule See Rx Instructions .ROUTE .COMPLEX 12/06/21 12/06/21 History Allergies Allergy/AdvReac Type Severity Reaction Status Date / Time niacin [NIACIN] AdvReac Intermediate PASS OUT Verified 12/06/21 08:35 Review of Systems Review of Systems Narrative: No fevers chills nausea or vomiting. No shortness of breath. Endorses right thigh hip pain. No numbness or tingling. No chest pain no headache. Endorses history of constipation with pain medications. History of MS. Otherwise review of systems negative Exam Vital Signs (past 8 hours): - 12/06/21 08:27 12/06/21 08:28 12/06/21 08:29 Temperature 97.1 F L Pulse Rate 72 73 71 Respiratory Rate 24 21 18 Blood Pressure 152/82 H 143/76 H Pulse Oximetry 96 97 96 12/06/21 08:30 12/06/21 09:00 12/06/21 09:28 Temperature Pulse Rate 74 64 64 Respiratory Rate 19 18 Blood Pressure 152/82 H 153/69 H Pulse Oximetry 97 92 94 12/06/21 09:30 12/06/21 10:00 12/06/21 10:30 Temperature Pulse Rate 61 61 61 Respiratory Rate 19 15 15 Blood Pressure 147/72 H 146/67 H 158/75 H Pulse Oximetry 94 95 92 12/06/21 11:00 12/06/21 11:30 12/06/21 13:14 Temperature 98.4 F Pulse Rate 61 63 57 L Respiratory Rate 16 14 16 Blood Pressure 150/72 H 170/78 H 183/90 H Pulse Oximetry 90 L 91 97 12/06/21 15:17 Temperature 98.2 F Pulse Rate 59 L Respiratory Rate 16 Blood Pressure 147/77 H Pulse Oximetry 92 Oxygen Delivery Method Room Air Oxygen Flow Rate 0 Narrative Exam Narrative: Alert oriented no acute distress lying in the hospital bed. Answers questions appropriately. Lungs clear to auscultation bilaterally. HEENT exam normocephalic atraumatic. CV exam regular rate and rhythm. Abdomen is soft. Evans in place. No tenderness or deformity of the left lower extremity. Demonstrates dorsiflexion plantar flexion. Bilateral upper extremities full range of motion no deformities no tenderness palpation. Sensory intact. Right lower extremity demonstrates normal alignment able to demonstrate 5/5 dorsiflexion plantar flexion of the ankle. Calf and thigh are soft. Knee without effusion. There is tenderness about the proximal thigh. No further motor for manipulation exam due to known fracture. Objective Imaging AP pelvis and right hip x-ray: My impression: AP pelvis and lateral right hip x-ray demonstrate nondisplaced subtrochanteric femur fracture starting at the level of the lesser trochanter and exiting just inferior. Completely nondisplaced best seen on the lateral image. right hip arthritis Radiologist's impression: IMPRESSION: Superior right femoral diaphyseal fracture. Dictated by: Lynne Reyes M.D. on 12/06/2021 at 9:04 Labs Result Diagrams: 12/06/21 09:26 12/06/21 09:26 Labs: Laboratory Results - last 24 hr 12/06/21 12/06/21 12/06/21 09:26 09:26 09:41 WBC 4.9 RBC 4.52 Hgb 14.3 Hct 42.5 MCV 94.2 MCH 31.7 MCHC 33.6 RDW 13.3 Plt Count 235 Neut % (Auto) 68.5 Lymph % (Auto) 18.4 L [place] % (Auto) 10.0 Eos % (Auto) 2.4 Baso % (Auto) 0.7 Neut # (Auto) 3400 Lymph # (Auto) 900 L [place] # (Auto) 500 Eos # (Auto) 100 Baso # (Auto) 0 Sodium 141 Potassium 3.6 Chloride 105 Carbon Dioxide 32 BUN 21 H Creatinine 0.85 Estimated GFR > 60.0 BUN/Creatinine Ratio 24.7 H Glucose 124 H Calcium 8.9 Total Bilirubin 0.4 AST 26 ALT 27 Alkaline Phosphatase 46 Total Creatine Kinase 35 CK-MB (CK-2) TNP CK-MB (CK-2) Rel Index TNP Troponin I < 0.012 Total Protein 7.2 Albumin 4.4 Globulin 2.8 Albumin/Globulin Ratio 1.6 Urine Color Yellow Urine Appearance Clear Urine pH 6.5 Ur Specific [place] 1.015 Urine Protein Negative Urine Glucose (UA) Trace H Urine Ketones Negative Urine Occult Blood Negative Urine Nitrate Negative Urine Bilirubin Negative Urine Urobilinogen 0.2 Ur Leukocyte Esterase Negative Urine RBC 1-5/hpf Urine WBC 1-5/hpf Ur Squamous Epith Cells 1-5 /hpf Amorphous Sediment 1+ Urine Bacteria Few (2-10) H Ur Culture Indicated? Cult not indicated SARS-CoV-2 (PCR) 12/06/21 09:42 WBC RBC Hgb Hct MCV MCH MCHC RDW Plt Count Neut % (Auto) Lymph % (Auto) [place] % (Auto) Eos % (Auto) Baso % (Auto) Neut # (Auto) Lymph # (Auto) [place] # (Auto) Eos # (Auto) Baso # (Auto) Sodium Potassium Chloride Carbon Dioxide BUN Creatinine Estimated GFR BUN/Creatinine Ratio Glucose Calcium Total Bilirubin AST ALT Alkaline Phosphatase Total Creatine Kinase CK-MB (CK-2) CK-MB (CK-2) Rel Index Troponin I Total Protein Albumin Globulin Albumin/Globulin Ratio Urine Color Urine Appearance Urine pH Ur Specific [place] Urine Protein Urine Glucose (UA) Urine Ketones Urine Occult Blood Urine Nitrate Urine Bilirubin Urine Urobilinogen Ur Leukocyte Esterase Urine RBC Urine WBC Ur Squamous Epith Cells Amorphous Sediment Urine Bacteria Ur Culture Indicated? SARS-CoV-2 (PCR) Negative Assessment & Plan Assessment and plan (1) Subtrochanteric fracture of right femur: Problem details: Patient has a nondisplaced right subtrochanteric femur fracture. This appears to be at the level of her previous drill holes from her recent core decompression. She felt a crack and snap and then slid down the door. She did not have a fall. This supports the pathologic fracture through the drill holes. No suspicious soft tissue masses. This is a nondisplaced fracture but in the area at risk for displacement and disability. Recommend operative treatment with intramedullary yolanda to allow early weight-bearing and mobilization and reduce the risk of displacement. This plan has been discussed with the patient outpatient orthopedic surgeon Dr. Fontaine as well who agrees that the patient is not currently a total hip candidate due to her comorbidities and location of the fracture we will need to get this to heal along with her cessation of smoking in order to eventually address for symptomatic right hip degenerative disease. Surgery is indicated for fixation of the subtrochanteric femur fracture she has been counseled on smoking cessation and the importance of avoidance of nicotine for bony healing. She already takes supplemental vitamin-D. We will have her take calcium as well. She has no history of blood clots or hypercoagulability. We discussed postoperative anticoagulation to reduce the risks of venous thromboembolism. The patient understands that the objective of this surgery is to address her subtrochanteric femur fracture and she will still have hip arthritis. The risks and benefits of the procedure have been discussed with the patient given the opportunity to ask questions. The risks of surgery include but are not limited to infection, malunion, nonunion, persistence of pain, damage to nerves and blood vessels, posttraumatic arthritis, DVT, PE, cardiopulmonary complications and . The patient expressed a thorough understanding of the risks and benefits of surgery and has elected to proceed. Consent was signed. Status: Acute (2) Arthritis of right hip: Problem details: The patient was currently undergoing treatment for her right hip degenerative disease with an outside orthopedic surgeon she recently had a core decompression. And she has been working on cessation of smoking. She just officially quit this morning and will need to work through maintenance of the cessation. Due to her current fracture she is not a candidate for a total hip arthroplasty and this will need to wait until her fracture is healed. She understands. Status: Acute COVID-19 COVID-19 status: Negative Result date/Date tested (Pos, Neg/Pending): 12/06/21 Time Spent With Patient Critical Care time: I spent a total of [] minutes of critical care time on this patient's care today; this time is exclusive of procedural time. Quality VTE Deep Vein Thrombosis/Pulmonary Embolism Present on Admission: No
--- NOTE | 2021-12-06 16:09 | PT-IP ANOTE ---
received PT eval order. pt scheduled for hip surgery today. will d/c PT eval order and will wait for new eval order after surgery.
--- NOTE | 2021-12-06 16:40 | P.HP_ITS ---
History of Present Illness History of Present Illness Date Patient Seen: 12/06/21 Chief complaint: right femur pain Narrative: The patient is a 66-year-old female with a history of multiple sclerosis, low back pain, hypertension, hyperlipidemia, gastroesophageal reflux disease, chronic back pain, depression, anxiety who underwent surgery at [facility] and October. She has continued to have joint pain and difficulty ambulating. The patient had a mechanical fall earlier today. She noted she got extreme pain heard a ?pop? and fell to the floor. The patient was unable to bear weight. She was unable to ambulate. She was brought in to the emergency room for evaluation. X-rays of the hip revealed a superior right femoral diaphyseal fracture. Patient is admitted to the hospital for definitive surgical repair. She is in significant pain. Minimal movement causes ex cruciating pain for her. Patient History Medical History Anesthesia Anxiety (12/10/14) Chronic back pain Chronic thoracic back pain Depression (12/10/14) Endometriosis (~1973) Fibroids (~1976) Gastroesophageal reflux disease (04/28/15) Insomnia due to other mental disorder (10/11/16) Left buttock pain Left rib fracture (~11/2014) Lower back pain Mixed hyperlipidemia (10/11/16) Multiple sclerosis, primary progressive (~02/2015) Osteopenia Overweight (BMI 25.0-29.9) Prediabetes (10/11/16) Rosacea blepharoconjunctivitis Segmental and somatic dysfunction of rib cage Sprain of left foot Tobacco use disorder (12/10/14) Surgical History History of tonsillectomy (~1958) S/P epidural steroid injection Status post cholecystectomy (~2007) Status post hysterectomy (~1990) Family & Social History Family History Mother Hyperlipidemia Lung cancer Alcoholism Anxiety Insomnia, unspecified type Hypertension Tobacco use disorder Macular degeneration Abdominal aortic aneurysm (AAA) without rupture Carotid artery disease, unspecified laterality Sister Hypertension High cholesterol Father No problems noted. Sister Hyperlipidemia Hypertension Social History: household members none Prior Living Arrangements House Safety & Behavioral: Feels Safe in Current Yes Environment Been Physically Hurt or No Threatened By a Person Suicidal Ideation Description None Suicide Plan Description No Plan Tobacco & Substance use: Tobacco type cigarettes Smoking Status Current every day smoker Smoking packs per day 1 alcohol intake former alcohol intake frequency 0-2 drinks per day Substance Use Type does not use Meds Home Medications and Allergies Home Medications Medication Instructions Recorded Confirmed Type disabled parking permit #1 ea 05/13/19 10/12/21 Rx carisoprodol 350 mg tablet See Rx Instructions .ROUTE 06/22/21 12/06/21 Rx .COMPLEX #270 tab diazepam 5 mg tablet 5 mg PO TID PRN #270 tab 08/01/21 12/06/21 Rx duloxetine 30 mg capsule,delayed 30 mg PO BID #180 cap 08/01/21 12/06/21 Rx release trazodone 50 mg tablet 100 mg PO BEDTIME PRN #180 tab 08/18/21 12/06/21 Rx fenofibrate 160 mg tablet 160 mg PO DAILY #90 tab 08/24/21 12/06/21 Rx aspirin 81 mg tablet,delayed 162 mg PO DAILY #60 tab 10/13/21 12/06/21 Rx release atorvastatin 80 mg tablet 80 mg PO DAILY #60 tab 10/13/21 12/06/21 Rx carvedilol 3.125 mg tablet (Coreg) 3.125 mg PO BID #60 tab 10/13/21 12/06/21 Rx buspirone 10 mg tablet See Rx Instructions .ROUTE 11/08/21 12/06/21 Rx .COMPLEX #540 tab amlodipine 2.5 mg tablet 2.5 mg PO DAILY 12/06/21 12/06/21 History ergocalciferol (vitamin D2) 25,000 50,000 unit PO QWEEK 12/06/21 12/06/21 History unit capsule meclizine 25 mg capsule 25 mg PO BID PRN 12/06/21 12/06/21 History ocrelizumab 30 mg/mL intravenous 600 mg IV [id number] 12/06/21 12/06/21 History solution (Ocrevus) paroxetine HCl 30 mg tablet 60 mg PO BEDTIME 12/06/21 12/06/21 History pregabalin 50 mg capsule See Rx Instructions .ROUTE .COMPLEX 12/06/21 12/06/21 History Allergies Allergy/AdvReac Type Severity Reaction Status Date / Time niacin [NIACIN] AdvReac Intermediate PASS OUT Verified 12/06/21 08:35 Review of Systems Review of Systems Narrative: Ten point review of systems is negative Exam Vital Signs (past 8 hours): - 12/06/21 09:00 12/06/21 09:28 12/06/21 09:30 Temperature Pulse Rate 64 64 61 Respiratory Rate 18 19 Blood Pressure 153/69 H 147/72 H Pulse Oximetry 92 94 94 12/06/21 10:00 12/06/21 10:30 12/06/21 11:00 Temperature Pulse Rate 61 61 61 Respiratory Rate 15 15 16 Blood Pressure 146/67 H 158/75 H 150/72 H Pulse Oximetry 95 92 90 L 12/06/21 11:30 12/06/21 13:14 12/06/21 15:17 Temperature 98.4 F 98.2 F Pulse Rate 63 57 L 59 L Respiratory Rate 14 16 16 Blood Pressure 170/78 H 183/90 H 147/77 H Pulse Oximetry 91 97 92 Oxygen Delivery Method Room Air Oxygen Flow Rate 0 Narrative Exam Narrative: Pleasant female somewhat uncomfortable lying in bed HENMT Other: HEENT: Normocephalic atraumatic, extraocular muscles are intact, oropharynx is clear, neck is supple without adenopathy Resp Other: Lungs are clear to auscultation Cardio Other: Cardiac exam: Regular rate rhythm normal S1-S2 with a 2/6 systolic ejection murmur GI Other: Abdomen: Soft nontender nondistended Extrem Other: Extremities: No clubbing cyanosis or edema. There is minimal pain with palpation over the right hip. Further manipulation of the right hip was deferr ed Objective Labs Result Diagrams: 12/06/21 09:26 12/06/21 09:26 Labs: Laboratory Results - last 24 hr 12/06/21 12/06/21 12/06/21 09:26 09:26 09:41 WBC 4.9 RBC 4.52 Hgb 14.3 Hct 42.5 MCV 94.2 MCH 31.7 MCHC 33.6 RDW 13.3 Plt Count 235 Neut % (Auto) 68.5 Lymph % (Auto) 18.4 L [place] % (Auto) 10.0 Eos % (Auto) 2.4 Baso % (Auto) 0.7 Neut # (Auto) 3400 Lymph # (Auto) 900 L [place] # (Auto) 500 Eos # (Auto) 100 Baso # (Auto) 0 Sodium 141 Potassium 3.6 Chloride 105 Carbon Dioxide 32 BUN 21 H Creatinine 0.85 Estimated GFR > 60.0 BUN/Creatinine Ratio 24.7 H Glucose 124 H Calcium 8.9 Total Bilirubin 0.4 AST 26 ALT 27 Alkaline Phosphatase 46 Total Creatine Kinase 35 CK-MB (CK-2) TNP CK-MB (CK-2) Rel Index TNP Troponin I < 0.012 Total Protein 7.2 Albumin 4.4 Globulin 2.8 Albumin/Globulin Ratio 1.6 Urine Color Yellow Urine Appearance Clear Urine pH 6.5 Ur Specific [place] 1.015 Urine Protein Negative Urine Glucose (UA) Trace H Urine Ketones Negative Urine Occult Blood Negative Urine Nitrate Negative Urine Bilirubin Negative Urine Urobilinogen 0.2 Ur Leukocyte Esterase Negative Urine RBC 1-5/hpf Urine WBC 1-5/hpf Ur Squamous Epith Cells 1-5 /hpf Amorphous Sediment 1+ Urine Bacteria Few (2-10) H Ur Culture Indicated? Cult not indicated SARS-CoV-2 (PCR) 12/06/21 09:42 WBC RBC Hgb Hct MCV MCH MCHC RDW Plt Count Neut % (Auto) Lymph % (Auto) [place] % (Auto) Eos % (Auto) Baso % (Auto) Neut # (Auto) Lymph # (Auto) [place] # (Auto) Eos # (Auto) Baso # (Auto) Sodium Potassium Chloride Carbon Dioxide BUN Creatinine Estimated GFR BUN/Creatinine Ratio Glucose Calcium Total Bilirubin AST ALT Alkaline Phosphatase Total Creatine Kinase CK-MB (CK-2) CK-MB (CK-2) Rel Index Troponin I Total Protein Albumin Globulin Albumin/Globulin Ratio Urine Color Urine Appearance Urine pH Ur Specific [place] Urine Protein Urine Glucose (UA) Urine Ketones Urine Occult Blood Urine Nitrate Urine Bilirubin Urine Urobilinogen Ur Leukocyte Esterase Urine RBC Urine WBC Ur Squamous Epith Cells Amorphous Sediment Urine Bacteria Ur Culture Indicated? SARS-CoV-2 (PCR) Negative Assessment & Plan Assessment & Plan narrative: 66-year-old female with a history of multiple sclerosis, hypertension, hyperlipidemia, anxiety, depression, status post recent surgery at [facility] for avascular necrosis of the hip here with a superior right femoral diaphyseal fracture * Patient likely with underlying osteoporosis, osteopenia, leading to avascular necrosis * Sounds like a spontaneous fracture. Will need definitive surgical repair. * Postoperatively would recommend bisphosphonate calcium and vitamin-D after she has recovered surgically * Will continue Dilaudid, scheduled Tylenol, and oral oxycodone for pain Hypertension * Will continue amlodipine 2.5 daily, and Coreg Depression and anxiety * Will continue Paxil, trazodone, duloxetine, and buspirone Hyperlipidemia * Continue fenofibrate, and atorvastatin Patient will be placed on DVT prophylaxis Patient reports her sister is her DPOA, she is DNR DNI, will note that her record accordingly I have utilized all available methods to review update and confirm the patient's medications Patient will be admitted to the hospital as an inpatient Time Spent With Patient Critical Care time: I spent a total of [] minutes of critical care time on this patient's care today; this time is exclusive of procedural time. Quality VTE Deep Vein Thrombosis/Pulmonary Embolism Present on Admission: No
[2021-12-06] MEDS: CEFAZOLIN 2 GM/20 ML SYRINGE IV (16:48)
--- NOTE | 2021-12-06 17:04 | SUR.OPER ---
Supine on padded [place] table with bilateral legs secured in padded positioning boots and suspended in positioning spars, operative leg in traction per surgeon. Head on one pillow. Arm on non-operative side secured on padded armboard <90 degrees abduction. Arm on operative side padded and resting across chest then secured with tape over sheet. Padded perineal post in place per surgeon.
[2021-12-06] MEDS: BUPIVACAINE 0.25% (PF) 30 ML, EPINEPHrine 0.15 MG INJ (17:12)
--- NOTE | 2021-12-06 18:20 | PM.OP.1 ---
Operative Date/Time/Diagnoses Date of procedure: 12/06/21 Time of procedure: 17:00 Pre-op diagnosis: Right subtrochanteric femur fracture Post-op diagnosis: same Procedure & Clinicians Procedure: Cephalomedullary nail right subtrochanteric fracture right CPT code 59892 Same procedure as scheduled: Yes Indications: Patient is 66-year-old female that sustained a right nondisplaced subtrochanteric femur fracture. She was indicated for internal fixation to prevent displacement facilitate healing and alignment and early mobilization. The patient has known right hip arthritis and AVN and has recently undergone a core decompression by outside surgeon. She is working on smoking cessation so that someday she was candidate for a total hip. We discussed that her subtrochanteric fracture needs to heal before she is a candidate. The risks and benefits of the procedure have been discussed with the patient given an opportunity to ask questions. The risks of surgery include but are not limited to infection, malunion, nonunion, persistence of pain, damage to nerves and blood vessels, posttraumatic arthritis, DVT, PE, cardiopulmonary complications and . The patient expressed a thorough understanding of the risks and benefits of surgery and has elected to proceed. Consent was signed. Surgeon: Angi Shepard Click Yes if Unassisted: Yes Anesthesia Type: General and Peripheral nerve block Operative Notes Findings: Nondisplaced subtrochanteric femur fracture, right Closure Type: primary Specimen(s): none sent Prosthetic devices, grafts, tissues, transplants, or devices: De Leon and nephew inter trevizo TriGen nail 10 mm x 36 cm 125? right-- 11 mm x 90 mm subtrochanteric lag screw 5 mm x 35 mm distal interlocking screw x 2 Estimated Blood Loss (mL): 100 Blood products transfused: none Tourniquet time (min): 0 Procedure in detail: The patient was seen, and site of surgery marked in the preoperative area. This was the right hip. The patient was then brought to the operating room and placed on the operative table and general anesthesia administered. The patient was positioned on the fracture table in the standard fashion with a well-padded boots and a padded peroneal post. An SCD was on the contralateral leg. A formal time-out was called to confirm the patient's side and site of surgery, administration of preoperative antibiotics. All personnel agreed. The operative leg was then examined under fluoroscopic guidance visualizing the nondisplaced subtrochanteric fracture. At this point, the operative extremity was prepped and draped in the standard sterile manner. A guidewire was placed percutaneously, and the starting point obtained. A small incision was made over the guidewire. An opening drill was inserted to the level of lesser trochanter. The ball-tip guidewire was then passed and confirmed to be within the canal distally on the biplanar fluoroscopic imaging. The wire was then measured the nail length selected. The canal was then sequentially reamed, and over-reamed by 1.5 for 10x 36 nail. The nail was then advanced to the proper depth and rotation the guide for the cephalomedullary screws was inserted. An incision was made for this and the guide placed to the bone. A guidewire was placed to the proper depth and confirmed on AP and lateral imaging. The tip apex distance was evaluated and appropriate. Next the guidewire was measured and a 90 mm angled subtrochanteric screw was selected. Guidewire was then overdrilled and a lag screw placed. confirmed on biplanar fluoroscopy. attention turned to the distal interlock screws, these were placed in the standard perfect [place] technique. Fluoro AP and lateral images were captured in the OR confirming alignment and hardware placement. Wounds were irrigated and closed in layers with Vicryl in the deep fascia, 2-0 in the subcutaneous layer and radha for skin closure. 0.25% Marcaine was injected at the incision sites for local anesthesia. Sterile dressings were applied. There no immediate complications noted. The surgical counts were correct. The patient tolerated the procedure well and was taken to the recovery room. Postoperative plan: The patient will be weight-bearing as tolerated on the operative extremity. They will follow up in 2 weeks (10-14 days ) at the clinic for suture/staple removal. They will start Lovenox for DVT prophylaxis postop day 1 and continued for 28 days postop. Complications: none Post-operative Condition: stable Disposition: PACU Plan for aftercare: Weightbear as tolerated with a walker. Lovenox for DVT prophylaxis x4 weeks postop. Follow up in 2 weeks for staple removal.
[2021-12-06] MEDS: OXYCODONE/ACETAMINOPHEN 5/325 TABLET 1 TAB PO (18:38)
--- NOTE | 2021-12-06 18:42 | SUR.PHASEI ---
Report called to Bhakti Fisher. Return phone number at time of report, [phone]. Pt returning to rm [phone].
[2021-12-06] MEDS: TRAZODONE 100 MG TABLET PO (20:25)
[2021-12-06] MEDS: KETOROLAC 30 MG/ML VIAL IV (20:25)
[2021-12-06] MEDS: carvediloL 3.125 MG TABLET PO (20:25)
[2021-12-06] MEDS: DEXTROSE 5%-0.9% NS 1,000 ML 100 ML IV (20:28)
[2021-12-06] MEDS: HYDROCODONE/ACET 10/325 TABLET 1 TAB PO (22:18)
[2021-12-07] VITALS (13 sets, daily range): BP systolic 113–177; BP diastolic 44–88; PULSE 64–78; RESP 14–22; TEMP 36.1–37.1; O2SAT 92–96
[2021-12-07] MEDS: methocarbamoL 500 MG TABLET PO ×3 (00:44→22:43)
[2021-12-07] MEDS: CEFAZOLIN 2 GM/20 ML SYRINGE IV ×2 (00:44→09:06)
[2021-12-07] MEDS: KETOROLAC 30 MG/ML VIAL IV ×4 (01:39→21:19)
[2021-12-07] MEDS: ACETAMINOPHEN 325 MG TABLET 975 MG PO ×2 (05:13→14:19)
[2021-12-07] MEDS: DEXTROSE 5%-0.9% NS 1,000 ML 100 ML IV (05:18)
[2021-12-07] MEDS: HYDROCODONE/ACET 10/325 TABLET 1 TAB PO ×3 (06:25→21:20)
[2021-12-07 06:29] LABS: Hematocrit 36.4 % (36-46); Hemoglobin 12.3 g/dL (12.0-16.0); Mean Corpuscular HGB Conc 33.7 % (30-36); Mean Corpuscular Hemoglobin 31.7 PG (26-34); Platelet Count 232 X10^3/uL (150-400); Red Blood Cell Count 3.87 X10^6/uL (4.0-5.2); Red Cell Distribution Width 13.2 % (11.6-14.8); White Blood Cell Count 8.2 X10^3/uL (4.5-11.0)
[2021-12-07 06:39] LABS: BUN Creatinine Ratio 28.2 (6-22); Blood Urea Nitrogen 20 mg/dL (7-17); Calcium 8.1 mg/dL (8.4-10.2); Carbon Dioxide 32 mmol/L (22-32); Chloride 107 mmol/L (98-107); Estimated Glomerular Filt Rate > 60.0 mL/min (>60); Glucose 111 mg/dL (80-110); HEMOLYSIS < 15 (0-50); Sodium 138 mmol/L (137-145)
[2021-12-07 06:45] LABS: NT-proBNP (BNP-Adult 18+) 104 pg/mL (<125)
--- NOTE | 2021-12-07 08:03 | P.PN_ITS ---
Subjective Subjective Date Patient Seen: 12/07/21 Time Patient Seen: 08:03 Interval history: Lying in bed, AA&O x 3. C/o pain commensurate with surgery; she is not obviously uncomfortable. She complains of feeling like she is about to have a panic attack and would like diazepam, which she says she takes regularly. Discussed with Dr Saunders. Exam Vital Signs (past 8 hours): - 12/07/21 02:00 12/07/21 03:31 12/07/21 06:00 Temperature 98.7 F Pulse Rate 74 Respiratory Rate 16 Blood Pressure 123/72 Pulse Oximetry 95 96 94 Fraction of Inspired Oxygen 28 Oxygen Delivery Method Room Air Oxygen Flow Rate 3 Narrative Exam Narrative: 5/5 strength in quadriceps, hamstrings, DF, PF, EHL bilaterally. Sensation to light touch intact in BLE. Calves soft, compressible, nontender and without palpable cords or masses. Objective Labs Result Diagrams: 12/07/21 06:00 12/07/21 06:00 Labs: Laboratory Results - last 24 hr 12/06/21 12/06/21 12/06/21 09:26 09:26 09:41 WBC 4.9 RBC 4.52 Hgb 14.3 Hct 42.5 MCV 94.2 MCH 31.7 MCHC 33.6 RDW 13.3 Plt Count 235 Neut % (Auto) 68.5 Lymph % (Auto) 18.4 L [place] % (Auto) 10.0 Eos % (Auto) 2.4 Baso % (Auto) 0.7 Neut # (Auto) 3400 Lymph # (Auto) 900 L [place] # (Auto) 500 Eos # (Auto) 100 Baso # (Auto) 0 Sodium 141 Potassium 3.6 Chloride 105 Carbon Dioxide 32 BUN 21 H Creatinine 0.85 Estimated GFR > 60.0 BUN/Creatinine Ratio 24.7 H Glucose 124 H Calcium 8.9 Total Bilirubin 0.4 AST 26 ALT 27 Alkaline Phosphatase 46 Total Creatine Kinase 35 CK-MB (CK-2) TNP CK-MB (CK-2) Rel Index TNP Troponin I < 0.012 NT-Pro-B Natriuret Pep Total Protein 7.2 Albumin 4.4 Globulin 2.8 Albumin/Globulin Ratio 1.6 Urine Color Yellow Urine Appearance Clear Urine pH 6.5 Ur Specific Schneider 1.015 Urine Protein Negative Urine Glucose (UA) Trace H Urine Ketones Negative Urine Occult Blood Negative Urine Nitrate Negative Urine Bilirubin Negative Urine Urobilinogen 0.2 Ur Leukocyte Esterase Negative Urine RBC 1-5/hpf Urine WBC 1-5/hpf Ur Squamous Epith Cells 1-5 /hpf Amorphous Sediment 1+ Urine Bacteria Few (2-10) H Ur Culture Indicated? Cult not indicated SARS-CoV-2 (PCR) 12/06/21 12/07/21 12/07/21 09:42 06:00 06:00 WBC 8.2 D RBC 3.87 L Hgb 12.3 Hct 36.4 MCV 94.0 MCH 31.7 MCHC 33.7 RDW 13.2 Plt Count 232 Neut % (Auto) Lymph % (Auto) [place] % (Auto) Eos % (Auto) Baso % (Auto) Neut # (Auto) Lymph # (Auto) [place] # (Auto) Eos # (Auto) Baso # (Auto) Sodium 138 Potassium 4.0 Chloride 107 Carbon Dioxide 32 BUN 20 H Creatinine 0.71 Estimated GFR > 60.0 BUN/Creatinine Ratio 28.2 H Glucose 111 H Calcium 8.1 L Total Bilirubin AST ALT Alkaline Phosphatase Total Creatine Kinase CK-MB (CK-2) CK-MB (CK-2) Rel Index Troponin I NT-Pro-B Natriuret Pep 104 Total Protein Albumin Globulin Albumin/Globulin Ratio Urine Color Urine Appearance Urine pH Ur Specific Schneider Urine Protein Urine Glucose (UA) Urine Ketones Urine Occult Blood Urine Nitrate Urine Bilirubin Urine Urobilinogen Ur Leukocyte Esterase Urine RBC Urine WBC Ur Squamous Epith Cells Amorphous Sediment Urine Bacteria Ur Culture Indicated? SARS-CoV-2 (PCR) Negative [facility] [place] Medical History Anesthesia Anxiety (12/10/14) Chronic back pain Chronic thoracic back pain Depression (12/10/14) Endometriosis (~1973) Fibroids (~1976) Gastroesophageal reflux disease (04/28/15) Insomnia due to other mental disorder (10/11/16) Left buttock pain Left rib fracture (~11/2014) Lower back pain Mixed hyperlipidemia (10/11/16) Multiple sclerosis, primary progressive (~02/2015) Osteopenia Overweight (BMI 25.0-29.9) Prediabetes (10/11/16) Rosacea blepharoconjunctivitis Segmental and somatic dysfunction of rib cage Sprain of left foot Tobacco use disorder (12/10/14) Surgical History History of tonsillectomy (~1958) S/P epidural steroid injection Status post cholecystectomy (~2007) Status post hysterectomy (~1990) Family History Mother Hyperlipidemia Lung cancer Alcoholism Anxiety Insomnia, unspecified type Hypertension Tobacco use disorder Macular degeneration Abdominal aortic aneurysm (AAA) without rupture Carotid artery disease, unspecified laterality Sister Hypertension High cholesterol Father No problems noted. Sister Hyperlipidemia Hypertension Social History household members: none Smoking Status: Current every day smoker alcohol intake: former Assessment & Plan Post-op Postoperative Procedures: Procedures Operation Date: 12/06/21 18:45 Actual Procedure Side Surgeon p Intramedullary Nailing Femur Right Angi Shepard MD Postoperative day: 1 Postoperative status: doing well Postoperative plan narrative: Pain control per hospitalist service. Ambulate w/ PT; WBAT RLE. Start enoxaparin 40 mg daily today and continue through January 03, 2022 for VTE prophylaxis. Follow up in ortho clinic in 10-14 days for staple removal and evaluation. Quality VTE Deep Vein Thrombosis/Pulmonary Embolism Present on Admission: No
[2021-12-07] MEDS: ENOXAPARIN 40 MG/0.4 ML SYRINGE SUBCUT (09:06)
[2021-12-07] MEDS: ASPIRIN EC 81 MG TABLET 162 MG PO (09:07)
[2021-12-07] MEDS: BUSPIRONE 5 MG TABLET 10 MG PO (09:07)
[2021-12-07] MEDS: AMLODIPINE 5 MG TABLET 2.5 MG PO (09:10)
[2021-12-07] MEDS: diazePAM 5 MG TABLET PO ×3 (09:10→22:43)
[2021-12-07] MEDS: carvediloL 3.125 MG TABLET PO ×2 (09:10→22:41)
[2021-12-07] MEDS: DOCUSATE 100 MG CAPSULE PO ×2 (09:11→22:42)
--- NOTE | 2021-12-07 10:11 | PT.IIE ---
Current Diagnoses Unilateral primary osteoarthritis, right hip (12/06/21) Displaced subtrochanteric fracture of right femur, initial encounter for closed fracture (12/06/21) Surgery Performed Operation Date: 12/06/21 18:45 Actual Procedures p Intramedullary Nailing Femur(Right) - Angi Shepard MD Surgical History (Last Reviewed 12/06/21 @ 16:06 by Angi Shepard MD) History of tonsillectomy (~1959) Status post cholecystectomy (~2007) Status post hysterectomy (~1990) Medical History (Last Reviewed 12/06/21 @ 16:44 by Oriana Saunders MD) Anesthesia Anxiety (12/10/14) Chronic back pain Chronic thoracic back pain Depression (12/10/14) Endometriosis (~1973) Fibroids (~1976) Gastroesophageal reflux disease (04/28/15) Insomnia due to other mental disorder (10/11/16) Left buttock pain Left rib fracture (~11/2014) Lower back pain Mixed hyperlipidemia (10/11/16) Multiple sclerosis, primary progressive (~02/2015) Osteopenia Overweight (BMI 25.0-29.9) Prediabetes (10/11/16) Rosacea blepharoconjunctivitis Segmental and somatic dysfunction of rib cage Sprain of left foot Tobacco use disorder (12/10/14) Physical Therapy Inpatient Evaluation/Re-Eval M1 PT/OT-IP Prior Functional Status Start: 12/07/21 13:54 Freq: NEEDED Status: Active Protocol: Document 12/07/21 10:11 AB (Rec: 12/07/21 14:20 AB [id number]) Medical Review Prior Functional Status Medical History Reviewed Yes Communication able to make needs known Mobility and Gait Pt stated that she is modified independent with all mobilities and ambulation using a quad cane but for the passed few weeks, has been using a FWW due to her R hip avascular necrosis Social History Household Members none Living Arrangements House Number of Floors (Floors) One Floor Number of Stairs To Enter/Railing? 1 step to enter from the garage Home Environment Standard Height Toilet,Tub/ Shower Home Equipment Front Wheel Walker,Quad Cane, Shower Seat without Backrest, Hand Held Shower,Grab Bars Near Toilet,Grab Bars In Shower Additional Social History Comment pt stated that her sister may be able to assist her pt stated that she has an adjustable bed M2 PT-IP Current Condition Start: 12/07/21 13:54 Freq: NEEDED Status: Active Protocol: Document 12/07/21 10:11 AB (Rec: 12/07/21 14:20 AB [email or web address]) Physical Therapy Current Condition Current Condition Evaluation Date 12/07/21 Treatment Diagnosis R femur fx s/p nailing; difficulty in walking Onset Date 12/06/21 M3 PT-IP Subjective Start: 12/07/21 13:54 Freq: NEEDED Status: Active Protocol: Document 12/07/21 10:11 AB (Rec: 12/07/21 14:20 AB [email or web address]) Subjective Physical Therapy Visit Type Type Initial Evaluation Visit Start Time 10:11 Visit Stop Time 10:51 Total Visit Minutes 40 Number of TESTBOARD OPERATOR Visits 0 Physical Therapy Visit Comments Patient Comments agreeable to do PT Therapy Pain Assessment Pain When Pain Assessed During Mobility Pain Present Pain Present Pain Reported Location right hip Intensity 3 Scale Used Numeric (0 - 10) Pain Management Techniques Distraction,Elevation, Modification of Treatment,Re- positioning,Timing of Activity with Medications M4 PT-IP Mobility and Gait Start: 12/07/21 13:54 Freq: NEEDED Status: Active Protocol: Document 12/07/21 10:11 AB (Rec: 12/07/21 14:20 AB [email or web address]) PT-Bed Mobility Assessment Supine to Sit Supine to Sit Minimal Assistance Sit to Supine Sit to Supine Minimal Assistance PT-Transfer Assessment Sit to and From Stand Sit to and from Stand Minimal Assistance Equipment Transfer Assistive Device Gait Belt,Front Wheeled Walker Orthotic/Prosthetic Devices or Brace: No Transfers Transfer Destination Bed Transfer Technique ambulated Transfer Ability Level of Assist Minimal Assistance,1 Person Assistance,Use of Upper Extremities Comments Mobility Comments pt requires cues with all tasks. pt completed supine to sit min A and cues. able to sit on EOB CGA. completed sit to stand min A and cues and ambulated in room using FWW min A initially but mod A midway of ambulation. completed ~ 12 ft. pt sat on chair. pt does not want to stay up on chair and stated that she did not sleep last night and wants to go back to bed. completed sit to stand from chair min A and completed step transfer to bed using fWW min A and cues. completed sit to supine min A. positioned pt in bed. call light and table placed within reach. Gait Assessment Gait Gait Assistance Required: Minimum Assistance,Moderate Assistance Distance (Feet) 12 Able to Maintain Weight Bearing Status Yes During Gait Assistive Devices Assistive Device Gait Belt,Front Wheeled Walker Orthotic/Prosthetic Devices or Brace: No Gait Deviations General Gait Pattern Antalgic,Decreased Stride Length,Decreased Feet Clearance,Step-to Gait Factors Limiting Gait Function Factors Limiting Gait Function Decreased Activity Tolerance, Decreased Sensation,Decreased Strength,Difficulty Following Directions,Limited Range of Motion,Pain,Poor Balance,Poor Safety Awareness PT-Balance Assessment Sitting Balance and Reactions Static Sitting Balance Ability Good Dynamic Sitting Balance Ability Good Standing Balance and Reactions Static Standing Balance Ability Fair Dynamic Standing Balance Ability Fair Device Used FWW M5 PT-IP Objective Assessments Start: 12/07/21 13:54 Freq: NEEDED Status: Active Protocol: Document 12/07/21 10:11 AB (Rec: 12/07/21 14:20 AB [email or web address]) Orientation Orientation/Cognition Level of Alertness Alert Orientation Name,Place,Situation Language Function Ability No Deficits Noted Safety Awareness Decreased Safety Awareness Memory Description Short Term Impaired,Medical Aide Impaired Gross Range of Motion Lower Extremity ROM Assessment Within Functional Limits Strength Lower Extremity Strength Assessment Bilaterally Impaired Comments Strength Comments LLE: 4-/5 RLE: 3+/5 Sensation Assessment Sensation Gross Sensation Right LE Impaired,Left LE Impaired Light Touch Impaired Proprioception (Position) Impaired Sensation Description Numbness Comments Sensation Comments decrease sensation on BLE Muscle Tone Muscle Tone WNL Yes M6 PT-IP Treatment Start: 12/07/21 13:54 Freq: NEEDED Status: Active Protocol: Document 12/07/21 10:11 AB (Rec: 12/07/21 14:20 AB [email or web address]) Physical Therapy Treatment Education Education Provided Precautions,Weight Bearing Status,Post-Op Packet,Safety M7 PT-IP Assessment and Plan Start: 12/07/21 13:54 Freq: NEEDED Status: Active Protocol: Document 12/07/21 10:11 AB (Rec: 12/07/21 14:20 AB [email or web address]) PT Summary Assessment and Plan Potential Rehabilitation Potential Fair Status of Condition at Evaluation Evolving Summary Impairments Pain,ROM,Strength,Balance, Coordination,Sensation,Tone, Cognition,Bed Mobility, Transfers,Gait,Activity Tolerance Assessment Summary pt requiring min to mod A with ambulation using FWW and unable to tolerate much activity needing increase assistance towards ambulation. pt has dx of MS contributing to current functional level. pt lives alone but stated that her sister may be able to assist her. pt needs to be more independent than current level and will require SNF rehab. will continue to assess progress. When appropriate, will conduct caregiver training and stair climbing training. Goals Bed Mobility Goal Standby Assistance Transfer Goal Standby Assistance,Front Wheeled Walker Gait Goal Standby Assistance,Front Wheel Walker Gait Distance 150 Other Goals up/down 1 step using fWW SBA Days to Meet Goals 10 Frequency of Treatment Frequency Of Treatment Twice a Day Treatment Plan Physical Therapy Treatment Plan Bed Mobility Training,Transfer Training,Gait Training, Therapeutic Exercise,Balance Retraining,Post Op Education, Discharge Planning,Hot or Cold Pack,Neuromuscular Re-ed, Coordination Retraining,Manual Therapy Weight Bearing Status Weight Bearing Status Weight Bear as Tolerated Allowed Weight Bearing Amount (enter % RLE WBAT or #) (%) Recommendations To Nursing Amount of Assist Needed 1 Person Assist Discharge Recommendations PT Discharge Recommendations SNF Rehab Transportation Needs at Discharge Wheelchair/Cabulance
[2021-12-07] MEDS: DULOXETINE 30 MG CAPSULE PO (11:35)
--- NOTE | 2021-12-07 13:18 | P.PN_ITS ---
Subjective Subjective Date Patient Seen: 12/07/21 Interval history: Patient is a 66-year-old female cephalomedullary nail right subtrochanteric fracture. Patient is quite anxious about her Evans catheter. She was unable to ambulate safely independently. PT is recommending residential at discharge the patient is agreeable. She is requesting to resume her usual medications at home which will be written for. Her pain is well controlled when she is not moving. Exam Vital Signs (past 8 hours): - 12/07/21 06:00 12/07/21 08:00 12/07/21 09:36 Temperature 97.7 F Pulse Rate 72 Respiratory Rate 14 Blood Pressure 152/69 H Pulse Oximetry 94 92 93 12/07/21 09:53 12/07/21 12:00 Temperature 98.8 F Pulse Rate 78 Respiratory Rate 18 Blood Pressure 177/88 H Pulse Oximetry 92 92 Fraction of Inspired Oxygen 28 Oxygen Delivery Method Room Air Oxygen Flow Rate 3 Narrative Exam Narrative: Pleasant female lying in bed in no obvious distress Resp Other: Lungs clear to auscultation Cardio Other: Cardiac exam: Regular rate and rhythm normal S1-S2 GI Other: Abdomen: Soft and nontender Extrem Other: Extremity right hip with bandage in place Objective Labs Result Diagrams: 12/07/21 06:00 12/07/21 06:00 Labs: Laboratory Results - last 24 hr 12/07/21 12/07/21 06:00 06:00 WBC 8.2 D RBC 3.87 L Hgb 12.3 Hct 36.4 MCV 94.0 MCH 31.7 MCHC 33.7 RDW 13.2 Plt Count 232 Sodium 138 Potassium 4.0 Chloride 107 Carbon Dioxide 32 BUN 20 H Creatinine 0.71 Estimated GFR > 60.0 BUN/Creatinine Ratio 28.2 H Glucose 111 H Calcium 8.1 L NT-Pro-B Natriuret Pep 104 PFSH Medical History Anesthesia Anxiety (12/10/14) Chronic back pain Chronic thoracic back pain Depression (12/10/14) Endometriosis (~1973) Fibroids (~1976) Gastroesophageal reflux disease (04/28/15) Insomnia due to other mental disorder (10/11/16) Left buttock pain Left rib fracture (~11/2014) Lower back pain Mixed hyperlipidemia (10/11/16) Multiple sclerosis, primary progressive (~02/2015) Osteopenia Overweight (BMI 25.0-29.9) Prediabetes (10/11/16) Rosacea blepharoconjunctivitis Segmental and somatic dysfunction of rib cage Sprain of left foot Tobacco use disorder (12/10/14) Surgical History History of tonsillectomy (~1958) S/P epidural steroid injection Status post cholecystectomy (~2007) Status post hysterectomy (~1990) Family History Mother Hyperlipidemia Lung cancer Alcoholism Anxiety Insomnia, unspecified type Hypertension Tobacco use disorder Macular degeneration Abdominal aortic aneurysm (AAA) without rupture Carotid artery disease, unspecified laterality Sister Hypertension High cholesterol Father No problems noted. Sister Hyperlipidemia Hypertension Social History household members: none Smoking Status: Current every day smoker alcohol intake: former Assessment & Plan Assessment & Plan narrative: 66-year-old female with a history of multiple sclerosis, hypertension, hyperlipidemia, anxiety, depression, status post recent surgery at [facility] for avascular necrosis of the hip here with a superior right femoral diaphyseal fracture * Patient likely with underlying osteoporosis, osteopenia, leading to avascular necrosis * Patient is status post cephalomedullary nail to the right subtrochanteric fracture * Postoperatively would recommend bisphosphonate calcium and vitamin-D after she has recovered surgically * Will continue Dilaudid, scheduled Tylenol, and oral oxycodone for painHypertension * Will continue amlodipine 2.5 daily, and CoregDepression and anxiety * Will continue Paxil, trazodone, duloxetine, and buspironeHyperlipidemia * Continue fenofibrate, and atorvastatinPatient will be placed on DVT prophylaxis * She will need to continue DVT prophylaxis until January 03 * Patient's medications have been reviewed by pharmacy and she will be resumed on her home medication regimen * Anticipate discharge to residential in 2 days Time Spent With Patient Critical Care time: I spent a total of [] minutes of critical care time on this patient's care today; this time is exclusive of procedural time. Quality VTE Deep Vein Thrombosis/Pulmonary Embolism Present on Admission: No
--- NOTE | 2021-12-07 13:27 | CM.DANOTE ---
Addendum entered by Jackelin Alexis R.N. 12/07/21 15:37: Elise from [facility] called back and indicated that she can accept patient on Sunday. Original Note: DCP: Case received, EMR reviewed and met with patient. Sister, Brandy, was also at bedside. Was able to obtain information regarding patient's baseline activity level prior to hospitalization. DCP assessment completed with information currently available. Patient is a 66 year old female who admitted yesterday morning to the care of the hospitalist team. PCP: ALPHONSE Nunez. Payer: confirmed: Medicare/[employer]. Patient came to the hospital via ambulance secondary to having a fall at home. According to notes, patient had felt a sharp pain in her thigh and a crack, and slipped down the door to the ground. Patient was then unable to ambulate and brought here to the hospital. Patient was diagnosed with subtrochanteric femur fracture. Patient has history of MS, as well as Hyperlipidemia and right hip arthritis. P.T. worked with patient and are [facility]. Met with patient and sister, Barndy, in the room. Confirmed that she resides here in [place] alone. Her sister, Brandy, lives nearby. Patient no longer drives, sister takes her to her appointments. At baseline, patient was using a single point cane, then, a walker. She was hoping to go home with home health, let her know that they would not be coming in 5 days a week to work with her. Brought in Medicare Choice List. She is consenting to go to skilled, sister, Brandy, in agreement. She is willing to go to [facility], gave her list and recommended she make another choice in case they are full. Let her know that this medical planner will contact Elise at [facility] and look at referral. Let patient know she is inpatient, and according to Medicare standards, would need to be here until Sunday, 3rd midnight. Called Elise at [facility], she does have beds, and will review. Let her know that patient should be ready by Sunday. P: DCP to continue to follow. [facility] is reviewing, will need to confirm with March that she can accept. Jackelin Alexis RN/Post Commander Discharge Planning/Care Management CM Discharge Assessment Start: 12/07/21 13:25 Freq: Status: Active Protocol: Document 12/07/21 13:25 (Rec: 12/07/21 13:27 [id number]) Discharge Planning Assessment Assigned Plum Packer Jackelin Alexis RN/Post Commander Advance Directives? Yes: DPOA Advance Directives on File No History Provided By Patient,Medical Record Prior Living Arrangements House Household Members none Type of transporation used prior to Relies on Others admit Independent with ADL's Yes Is patient alert and oriented? Yes Needs Assistance With Home Chores / Shopping Caregiver for Another No DME Already Rented / Owned FWW / Walker,Cane Patient/Family Preference [facility] Facility Comment Referral sent to [facility] Barriers to Discharge Yes Comment Lives alone, has MS, balance issues. Discharge Plan [facility] Facility Transportation Arrangement Facility Referrals Initiated [facility] Additional Comment Referral sent to [facility] Whiteboard Updated in Patient Room with Yes name and ext. # of Plum Packer Review Status In Process Next Review Type Continued Stay Review
[2021-12-07] MEDS: FENOFIBRATE, MICRONIZED 67 MG CAPSULE 134 MG PO (14:20)
--- NOTE | 2021-12-07 14:35 | PT.IPTN ---
Current Diagnoses Unilateral primary osteoarthritis, right hip (12/06/21) Displaced subtrochanteric fracture of right femur, initial encounter for closed fracture (12/06/21) Surgery Performed Operation Date: 12/06/21 18:45 Actual Procedures p Intramedullary Nailing Femur(Right) - Angi Shepard MD Physical Therapy Treatment Note M2 PT-IP Current Condition Start: 12/07/21 13:54 Freq: NEEDED Status: Active Protocol: Document 12/07/21 10:11 AB (Rec: 12/07/21 14:20 AB [id number]) Physical Therapy Current Condition Current Condition Evaluation Date 12/07/21 Treatment Diagnosis R femur fx s/p nailing; difficulty in walking Onset Date 12/06/21 M3 PT-IP Subjective Start: 12/07/21 13:54 Freq: NEEDED Status: Active Protocol: Document 12/07/21 14:35 AB (Rec: 12/07/21 15:45 AB [email or web address]) Subjective Physical Therapy Visit Type Type Treatment Note Visit Start Time 14:35 Visit Stop Time 14:55 Total Visit Minutes 20 Number of LIGHTING ENGINEERING TECHNICIAN Visits 0 Physical Therapy Visit Comments Patient Comments agreeable to do PT Therapy Pain Assessment Pain When Pain Assessed At Rest Pain Present Pain Present Pain Reported Location right hip Intensity 5 Scale Used Numeric (0 - 10) Pain Management Techniques Distraction,Modification of Treatment,Re-positioning, Timing of Activity with Medications M4 PT-IP Mobility and Gait Start: 12/07/21 13:54 Freq: NEEDED Status: Active Protocol: Document 12/07/21 14:35 AB (Rec: 12/07/21 15:45 AB [id number]) PT-Bed Mobility Assessment Supine to Sit Supine to Sit Standby Assistance,Head of Bed Elevated,Bedrails PT-Transfer Assessment Sit to and From Stand Sit to and from Stand Minimal Assistance,Moderate Assistance,1 Person Assistance ,Use of Upper Extremities Equipment Transfer Assistive Device Gait Belt,Front Wheeled Walker Orthotic/Prosthetic Devices or Brace: No Transfers Transfer Destination Chair Transfer Technique ambulated Transfer Ability Level of Assist Moderate Assistance,1 Person Assistance,Use of Upper Extremities Comments Mobility Comments pt's sister in room with pt. pt agreed to do PT. completed supine to sit SBA and cues for techniques. HOB elevated. pt requires cues with tasks. pt completed sit to stand min to mod A and cues and ambulated in room mod A and cues ~ 12 ft. pt with very guarded gait and with increase UE weight bearing on FWW for steadiness. pt also requires increase time to process instructions. pt sat on chair . refused further ambulation but agreed to stay up on chair . positioned pt on chair. call light and table placed within reach. Left pt with sister. Gait Assessment Gait Gait Assistance Required: Moderate Assistance Distance (Feet) 12 Able to Maintain Weight Bearing Status Yes During Gait Assistive Devices Assistive Device Gait Belt,Front Wheeled Walker Orthotic/Prosthetic Devices or Brace: No Gait Deviations General Gait Pattern Antalgic,Ataxic,Decreased Stride Length,Decreased Feet Clearance Factors Limiting Gait Function Factors Limiting Gait Function Decreased Activity Tolerance, Decreased Sensation,Decreased Strength,Difficulty Following Directions,Limited Range of Motion,Pain,Poor Balance,Poor Safety Awareness M5 PT-IP Objective Assessments Start: 12/07/21 13:54 Freq: NEEDED Status: Active Protocol: Document 12/07/21 10:11 AB (Rec: 12/07/21 14:20 AB [id number]) Orientation Orientation/Cognition Level of Alertness Alert Orientation Name,Place,Situation Language Function Ability No Deficits Noted Safety Awareness Decreased Safety Awareness Memory Description Short Term Impaired,Transportation Inspector Impaired Gross Range of Motion Lower Extremity ROM Assessment Within Functional Limits Strength Lower Extremity Strength Assessment Bilaterally Impaired Comments Strength Comments LLE: 4-/5 RLE: 3+/5 Sensation Assessment Sensation Gross Sensation Right LE Impaired,Left LE Impaired Light Touch Impaired Proprioception (Position) Impaired Sensation Description Numbness Comments Sensation Comments decrease sensation on BLE Muscle Tone Muscle Tone WNL Yes M6 PT-IP Treatment Start: 12/07/21 13:54 Freq: NEEDED Status: Active Protocol: Document 12/07/21 14:35 AB (Rec: 12/07/21 15:45 AB [email or web address]) Physical Therapy Treatment Education Education Provided Safety M7 PT-IP Assessment and Plan Start: 12/07/21 13:54 Freq: NEEDED Status: Active Protocol: Document 12/07/21 14:35 AB (Rec: 12/07/21 15:45 AB [email or web address]) PT Summary Assessment and Plan Potential Rehabilitation Potential Fair Summary Impairments Pain,ROM,Strength,Balance, Coordination,Sensation,Tone, Cognition,Bed Mobility, Transfers,Gait,Activity Tolerance Progress Towards Goals Slow Progress due to Medical Issues,Slow Progress due to Activity Tolerance,Slow Progress - Other Assessment Summary pt requiring mod A with mobility and max cues with all tasks. pt with requiring increase time to process instructions and to complete all tasks. pt will require SNF rehab to improve functional mobility independence. Goals Bed Mobility Goal Standby Assistance Transfer Goal Standby Assistance,Front Wheeled Walker Gait Goal Standby Assistance,Front Wheel Walker Gait Distance 150 Other Goals up/down 1 step using fWW SBA Days to Meet Goals 10 Frequency of Treatment Frequency Of Treatment Twice a Day Treatment Plan Physical Therapy Treatment Plan Bed Mobility Training,Transfer Training,Gait Training, Therapeutic Exercise,Balance Retraining,Post Op Education, Discharge Planning,Hot or Cold Pack,Neuromuscular Re-ed, Coordination Retraining,Manual Therapy Weight Bearing Status Weight Bearing Status Weight Bear as Tolerated Allowed Weight Bearing Amount (enter % RLE WBAT or #) (%) Recommendations To Nursing Amount of Assist Needed 1 Person Assist Discharge Recommendations PT Discharge Recommendations SNF Rehab Transportation Needs at Discharge Wheelchair/Cabulance
--- NOTE | 2021-12-07 15:03 | OT.IPNOTE ---
Attempted to see pt for OT eval however pt just finished with PT and would rather do OT eval tomorrow. Able to get prior level of care with pt and her sister, no charge.
--- NOTE | 2021-12-07 18:22 | PC.NURSE ---
1500: cms+. PP++. Rt. leg drsngs cdi. pain controlled with toradol. call light in reach. bed alarm active.
[2021-12-07] MEDS: DICLOFENAC 0.1% 1 EACH EYE-BOTH (21:27)
[2021-12-07] MEDS: TRAZODONE 100 MG TABLET PO (22:43)
[2021-12-07] MEDS: PARoxetine 20 MG TABLET 60 MG PO (22:43)
[2021-12-08] VITALS (14 sets, daily range): BP systolic 140–171; BP diastolic 64–86; PULSE 64–79; RESP 14–20; TEMP 35.9–36.7; O2SAT 5–96
[2021-12-08] MEDS: KETOROLAC 30 MG/ML VIAL IV ×4 (01:54→20:44)
[2021-12-08] MEDS: SODIUM CHLORIDE 0.9% FLUSH 10 ML IV ×3 (01:55→22:48)
[2021-12-08] MEDS: HYDROCODONE/ACET 10/325 TABLET 1 TAB PO ×4 (01:55→18:15)
[2021-12-08] MEDS: diazePAM 5 MG TABLET PO ×2 (06:23→22:48)
--- NOTE | 2021-12-08 07:14 | P.PN_ITS ---
Subjective Subjective Date Patient Seen: 12/08/21 Time Patient Seen: 07:14 Interval history: Lying in bed, AA&O x 3.? C/o mild-moderate pain pain commensurate with surgery; she is not obviously uncomfortable.? Planning on d/c to SNF. Exam Vital Signs (past 8 hours): - 12/08/21 01:58 12/08/21 02:07 12/08/21 05:00 Temperature 97.0 F L 96.7 F L Pulse Rate 64 74 Respiratory Rate 18 20 Blood Pressure 140/64 148/79 H Pulse Oximetry 96 96 95 Fraction of Inspired Oxygen 28 Oxygen Delivery Method Room Air Oxygen Flow Rate 0 Narrative Exam Narrative: 5/5 strength in quadriceps, hamstrings, DF, PF, EHL bilaterally.? Sensation to light touch intact in BLE.? Calves soft, compressible, nontender and without palpable cords or masses. Objective Labs Result Diagrams: 12/07/21 06:00 12/07/21 06:00 [facility] Medical History Anesthesia Anxiety (12/10/14) Chronic back pain Chronic thoracic back pain Depression (12/10/14) Endometriosis (~1973) Fibroids (~1976) Gastroesophageal reflux disease (04/28/15) Insomnia due to other mental disorder (10/11/16) Left buttock pain Left rib fracture (~11/2014) Lower back pain Mixed hyperlipidemia (10/11/16) Multiple sclerosis, primary progressive (~02/2015) Osteopenia Overweight (BMI 25.0-29.9) Prediabetes (10/11/16) Rosacea blepharoconjunctivitis Segmental and somatic dysfunction of rib cage Sprain of left foot Tobacco use disorder (12/10/14) Surgical History History of tonsillectomy (~1958) S/P epidural steroid injection Status post cholecystectomy (~2007) Status post hysterectomy (~1990) Family History Mother Hyperlipidemia Lung cancer Alcoholism Anxiety Insomnia, unspecified type Hypertension Tobacco use disorder Macular degeneration Abdominal aortic aneurysm (AAA) without rupture Carotid artery disease, unspecified laterality Sister Hypertension High cholesterol Father No problems noted. Sister Hyperlipidemia Hypertension Social History household members: none Smoking Status: Current every day smoker alcohol intake: former Assessment & Plan Post-op Postoperative Procedures: Procedures Operation Date: 12/06/21 18:45 Actual Procedure Side Surgeon p Intramedullary Nailing Femur Right Angi Shepard MD Postoperative day: 2 Postoperative status: doing well Postoperative status narrative: stable status post Right femur intramedullary nailing Postoperative plan narrative: Pain control and d/c (likely to SNF) per hospitalist service. Ambulate w/ PT; WBAT RLE. Start enoxaparin 40 mg daily today and continue through January 03, 2022 for VTE prophylaxis. Follow up in ortho clinic in 10-14 days for staple removal and evaluation. Quality VTE Deep Vein Thrombosis/Pulmonary Embolism Present on Admission: No
[2021-12-08] MEDS: ASPIRIN EC 81 MG TABLET 162 MG PO (08:04)
[2021-12-08] MEDS: BUSPIRONE 5 MG TABLET 10 MG PO ×3 (08:04→20:41)
[2021-12-08] MEDS: DULOXETINE 30 MG CAPSULE PO ×2 (08:04→20:42)
[2021-12-08] MEDS: AMLODIPINE 5 MG TABLET 2.5 MG PO (08:04)
[2021-12-08] MEDS: DOCUSATE 100 MG CAPSULE PO ×2 (08:05→20:42)
[2021-12-08] MEDS: carvediloL 3.125 MG TABLET PO ×2 (08:05→20:42)
[2021-12-08] MEDS: DICLOFENAC 0.1% 1 EACH EYE-BOTH ×2 (08:08→20:48)
[2021-12-08] MEDS: PREGABALIN 50 MG CAPSULE PO (08:16)
--- NOTE | 2021-12-08 09:28 | OT.IP.EVAL ---
Current Diagnoses Unilateral primary osteoarthritis, right hip (12/06/21) Displaced subtrochanteric fracture of right femur, initial encounter for closed fracture (12/06/21) Surgery Performed Operation Date: 12/06/21 18:45 Actual Procedures p Intramedullary Nailing Femur(Right) - Angi Shepard MD Past Medical History (Last Reviewed 12/08/21 @ 07:22 by Yola Peterson PA-C) Anesthesia Anxiety (12/10/14) Chronic back pain Chronic thoracic back pain Depression (12/10/14) Endometriosis (~1973) Fibroids (~1976) Gastroesophageal reflux disease (04/28/15) Insomnia due to other mental disorder (10/11/16) Left buttock pain Left rib fracture (~11/2014) Lower back pain Mixed hyperlipidemia (10/11/16) Multiple sclerosis, primary progressive (~02/2015) Osteopenia Overweight (BMI 25.0-29.9) Prediabetes (10/11/16) Rosacea blepharoconjunctivitis S/P epidural steroid injection Segmental and somatic dysfunction of rib cage Sprain of left foot Tobacco use disorder (12/10/14) Surgical History (Last Reviewed 12/08/21 @ 07:22 by Yola Peterson PA-C) History of tonsillectomy (~1958) S/P epidural steroid injection Status post cholecystectomy (~2007) Status post hysterectomy (~1990) Occupational Therapy Inpatient Evaluation/Re-Eval M1 PT/OT-IP Prior Functional Status Start: 12/07/21 13:54 Freq: NEEDED Status: Active Protocol: Document 12/08/21 09:00 [facility] (Rec: 12/08/21 11:53 [facility] [id number]) Medical Review Prior Functional Status Medical History Reviewed Yes Communication able to make needs known Mobility and Gait Pt stated that she is modified independent with all mobilities and ambulation using a quad cane but for the passed few weeks, has been using a FWW due to her R hip avascular necrosis Activities of Daily Living and IADL's Pt states was able to do all ADl and IADL needs with increased time. Social History Household Members none Living Arrangements House Number of Floors (Floors) One Floor Number of Stairs To Enter/Railing? 1 step to enter from the garage Home Environment Standard Height Toilet,Tub/ Shower Home Equipment Front Wheel Walker,Quad Cane, Shower Seat without Backrest, Hand Held Shower,Grab Bars Near Toilet,Grab Bars In Shower Additional Social History Comment pt stated that her sister may be able to assist her pt stated that she has an adjustable bed M2 OT-IP Current Condition Start: 12/08/21 11:41 Freq: Status: Active Protocol: Document 12/08/21 09:00 [facility] (Rec: 12/08/21 11:53 [facility] [id number]) Occupational Therapy Current Condition Current Condition Evaluation Date 12/08/21 Treatment Diagnosis S/p Right femur fx Diagnosis Onset Date 12/06/21 Weight Bearing Status Weight Bearing Status Weight Bear as Tolerated M3 OT- IP Subjective and Pain Start: 12/08/21 11:41 Freq: Status: Active Protocol: Document 12/08/21 09:00 [facility] (Rec: 12/08/21 11:53 [facility] [id number]) OT- Subjective Occupational Therapy Visit Type Type Initial Evaluation Visit Start Time 09:00 Visit Stop Time 09:28 Total Visit Minutes 28 Occupational Therapy Visit Comments Patient Comments Pt wanting to sponge off. Patient/Caregiver Goals to go to skilled rehab OT Pain Assessment Pain When Pain Assessed During Mobility Pain Present Pain Present Pain Reported Location right hip Intensity 5 M4 OT- IP ADL's Start: 12/08/21 11:41 Freq: Status: Active Protocol: Document 12/08/21 09:00 [facility] (Rec: 12/08/21 11:53 [facility] [id number]) OT [id number] Comments OT Self-Feeding Comments NOt at meal time. OT ADL-Grooming Comments OT Grooming Comments Pt states did prior. OT ADL-Dressing General Eval Lower Body Dressing Ability Standby Assistance,Maximum Assistance Areas Needing Assistance Underpants/Brief,Socks Comments OT Dressing Comments Pt not able to reach to do LB dressing need and able to go over use of underwriting support manager and sock aid with pt and able to demonstrate good understanding and safety. OT ADL-Toileting Comments OT Toileting Comments Pt did not have to use the toilet. OT ADL-Bathing Bathing Type Bathing Type Sponge Bath General Evaluation Bathing Ability Moderate Assistance Areas Needing Assistance Wash/Dry Back,Wash/Dry Lower Extremities Comments OT Bathing Comments Spoke to PA to talk to pt and she was having questions of how long to have the dressing on her leg. Pt wanting to sponge off as not wanting to get her leg dressing wet at this time. M5 OT- IP IADL's Start: 12/08/21 11:41 Freq: Status: Active Protocol: Document 12/08/21 09:00 [facility] (Rec: 12/08/21 11:53 [facility] [id number]) OT-Instrumental Activities of Daily Living Home Safety Awareness Awareness of Need for Assistance at Home Good Awareness Ability to Problem Solve Emergency Able to Problem Solve Situations Home Safety Comments If going home pt would need assist for all IADl need and for some ADL needs at this time. M6 OT- IP Functional Cognition Start: 12/08/21 11:41 Freq: Status: Active Protocol: Document 12/08/21 09:00 [facility] (Rec: 12/08/21 11:53 [facility] [id number]) Cognitive Factors Limiting Selfcare Function Cognitive Ability Level of Alertness Alert Patient Orientation Name,Place,Situation Attention Span Ability Capable of Focused Attention, Capable of Sustained Attention Ability to Follow Commands Able to Follow Multi-Step Commands Problem Solving Ability No deficits Noted Cognitive Comments Cognitive Assessment Comments NO deficits noted on OT eval. OT- Vision and Hearing OT- Hearing Assessment OT- Hearing Assessment WFL OT- Vision Assessment Visual Acuity WFL,Glasses All The Time M7 OT- IP Mobility and Balance Start: 12/08/21 11:41 Freq: Status: Active Protocol: Document 12/08/21 09:00 [facility] (Rec: 12/08/21 11:53 [facility] [id number]) OT- Bed Mobility Assessment Sit to Supine Sit to Supine Assist Minimal Assistance OT-Transfer Assessment Sit to and From Stand Sit to and from Stand Minimal Assistance Transfers Transfer Ability Minimal Assistance Technique Transfer Destination Bed,Chair Transfer Technique Stand Step Pivot Devices Transfer Assistive Devices Gait Belt,Front Wheeled Walker Comments Mobility Comments COCO to stand to FWW and for steadying. Assist to help get her legs back into bed. OT- Balance Assessment Sitting Balance and Reactions Static Sitting Balance Ability Good Dynamic Sitting Balance Ability Good Standing Balance and Reactions Static Standing Balance Ability Fair M8 OT- IP Objective Assessments Start: 12/08/21 11:41 Freq: Status: Active Protocol: Document 12/08/21 09:00 [facility] (Rec: 12/08/21 11:53 [facility] [id number]) OT Gross Range of Motion Upper Extremity Range of Motion Assessment Within Functional Limits OT Strength Upper Extremity Strength Assessment Within Functional Limits M9 OT- IP Assessment and Plan Start: 12/08/21 11:41 Freq: Status: Active Protocol: Document 12/08/21 09:00 [facility] (Rec: 12/08/21 11:53 [facility] [id number]) OT Summary Assessment and Plan Potential Rehabilitation Potential Excellent Analytic Complexity at Evaluation Low Summary OT Impairments Balance,Functional Mobility, Dressing,Toileting,Bathing, Toilet Transfers,Shower Transfers Progress Towards Goals Progressing Toward Goals Assessment Summary Pt low complexity and main barriers are a step, decreased dynamic balance and now needing assist for ADL needs especially for dressing and bathing needs. Pt is very motivated to get better and will highly benefit from skilled rehab prior to going home. Goals Grooming Goal Independent Dressing Goal Independent Toileting Goal Independent Bathing Goal Independent Toilet Transfer Goal Independent Shower Transfer Goal Independent Days to Meet Goals 15 Frequency of Treatment Frequency Of Treatment Once a Day Treatment Plan OT Treatment Plan ADL Training,Functional Mobility,Patient/Family Education,Discharge Planning Discharge Recommendations OT Discharge Recommendations SNF Rehab Transportation Needs at Discharge Private Vehicle,Wheelchair/ Cabulance
--- NOTE | 2021-12-08 10:26 | CM.DPC ---
DCP Cont: Spoke to Brandy kumar, she was inquiring if [facility] accepted her. Let her know that she is accepted for tomorrow. Sister would like to be here when she leaves, and was hopeful for a time of pick up worker. Let her know that this supply chain planner will contact Elise at [facility] and set up a time so she can be with patient before she leaves. Sister teaches yoga, and is hopeful that it can be after that. Called Elise at [facility] and set up time of pick up worker between 1:00-1:30 tomorrow, Sunday. Left a message on Brandy kumar's phone about time of pick up worker. P: DCP to continue to follow. Will see if COVID swab can be obtained this pm for discharge to [facility] tomorrow. Jackelin Alexis RN/Piercing Artist
--- NOTE | 2021-12-08 11:24 | PT.IPTN ---
Current Diagnoses Unilateral primary osteoarthritis, right hip (12/06/21) Displaced subtrochanteric fracture of right femur, initial encounter for closed fracture (12/06/21) Surgery Performed Operation Date: 12/06/21 18:45 Actual Procedures p Intramedullary Nailing Femur(Right) - Angi Shepard MD Physical Therapy Treatment Note M2 PT-IP Current Condition Start: 12/07/21 13:54 Freq: NEEDED Status: Active Protocol: Document 12/07/21 10:11 AB (Rec: 12/07/21 14:20 AB [id number]) Physical Therapy Current Condition Current Condition Evaluation Date 12/07/21 Treatment Diagnosis R femur fx s/p nailing; difficulty in walking Onset Date 12/06/21 M3 PT-IP Subjective Start: 12/07/21 13:54 Freq: NEEDED Status: Active Protocol: Document 12/08/21 11:01 KS (Rec: 12/08/21 12:51 [facility] [id number]) Subjective Physical Therapy Visit Type Type Treatment Note Visit Start Time 11:01 Visit Stop Time 11:24 Total Visit Minutes 23 Number of TROLLEY CAR OVERHAULER Visits 1 Physical Therapy Visit Comments Patient Comments agreeable to do PT Therapy Pain Assessment Pain When Pain Assessed At Rest Pain Present Pain Present Pain Reported Location right hip Intensity 5 Scale Used Numeric (0 - 10) Pain Management Techniques Distraction,Re-positioning, Timing of Activity with Medications M4 PT-IP Mobility and Gait Start: 12/07/21 13:54 Freq: NEEDED Status: Active Protocol: Document 12/08/21 11:01 KS (Rec: 12/08/21 12:51 KS [id number]) PT-Bed Mobility Assessment Supine to Sit Supine to Sit Standby Assistance,Head of Bed Elevated,Bedrails Sit to Supine Sit to Supine Minimal Assistance Scooting Scooting to Edge of Bed Contact Guard Assistance PT-Transfer Assessment Sit to and From Stand Sit to and from Stand Minimal Assistance,1 Person Assistance,Use of Upper Extremities Equipment Transfer Assistive Device Gait Belt,Front Wheeled Walker Orthotic/Prosthetic Devices or Brace: No Transfers Transfer Destination Bed,Toilet Transfer Technique ambulated w/ FWW Transfer Ability Level of Assist Minimal Assistance,1 Person Assistance,Use of Upper Extremities Comments Mobility Comments Pt in bed upon arrival reporting 5/10 pain. SBA for sup<>sit, CGA for scooting, Min A and cues for sequencing for sit<>stand w/ FWW. Pt ambulated ~40 ft around room and then to toilet. Min A and cues for stand<>sit, cues for hand placement and needed assistance donning and doffing brief. Pt then ambulated ~15 ft back to bed and required Min A for LE assistance into bed. She will benefit from SNF to improve strength, balance, and functional mobility. Gait Assessment Gait Gait Assistance Required: Contact Guard Assist,1 Person Assist Distance (Feet) 55 Able to Maintain Weight Bearing Status Yes During Gait Assistive Devices Assistive Device Gait Belt,Front Wheeled Walker Orthotic/Prosthetic Devices or Brace: No Gait Deviations General Gait Pattern Antalgic,Ataxic,Decreased Stride Length,Decreased Feet Clearance Factors Limiting Gait Function Factors Limiting Gait Function Decreased Activity Tolerance, Decreased Sensation,Decreased Strength,Difficulty Following Directions,Limited Range of Motion,Pain,Poor Balance,Poor Safety Awareness Comments Gait Comments Pt decreased stride and foot clearance during ambulation w/ FWW. Hip hiking rather than bending R knee, improvement w/ cues. PT-Balance Assessment Sitting Balance and Reactions Static Sitting Balance Ability Good Dynamic Sitting Balance Ability Good Standing Balance and Reactions Static Standing Balance Ability Fair Dynamic Standing Balance Ability Fair Device Used FWW M5 PT-IP Objective Assessments Start: 12/07/21 13:54 Freq: NEEDED Status: Active Protocol: Document 12/07/21 10:11 AB (Rec: 12/07/21 14:20 AB [email or web address]) Orientation Orientation/Cognition Level of Alertness Alert Orientation Name,Place,Situation Language Function Ability No Deficits Noted Safety Awareness Decreased Safety Awareness Memory Description Short Term Impaired,Custodial Impaired Gross Range of Motion Lower Extremity ROM Assessment Within Functional Limits Strength Lower Extremity Strength Assessment Bilaterally Impaired Comments Strength Comments LLE: 4-/5 RLE: 3+/5 Sensation Assessment Sensation Gross Sensation Right LE Impaired,Left LE Impaired Light Touch Impaired Proprioception (Position) Impaired Sensation Description Numbness Comments Sensation Comments decrease sensation on BLE Muscle Tone Muscle Tone WNL Yes M6 PT-IP Treatment Start: 12/07/21 13:54 Freq: NEEDED Status: Active Protocol: Document 12/08/21 11:01 KS (Rec: 12/08/21 12:51 [facility] [id number]) Physical Therapy Treatment Exercises Exercises Ankle Pumps,Gluteal Sets Education Education Provided Weight Bearing Status,Safety M7 PT-IP Assessment and Plan Start: 12/07/21 13:54 Freq: NEEDED Status: Active Protocol: Document 12/08/21 11:01 KS (Rec: 12/08/21 12:51 [facility] [id number]) PT Summary Assessment and Plan Potential Rehabilitation Potential Fair Summary Impairments Pain,ROM,Strength,Balance, Coordination,Sensation,Tone, Cognition,Bed Mobility, Transfers,Gait,Activity Tolerance Progress Towards Goals Slow Progress due to Medical Issues,Slow Progress due to Activity Tolerance,Slow Progress - Other Assessment Summary Pt requiring Min A w/ most bed mobility and cues for sequencing for transfers and hand placement. Unable to connie /doff her own brief and decreased stride and foot clearance w/ R kip hiking rather than knee flexion when ambulating. She will require SNF to improve strength, safety, and functional mobility. Goals Bed Mobility Goal Standby Assistance Transfer Goal Standby Assistance,Front Wheeled Walker Gait Goal Standby Assistance,Front Wheel Walker Gait Distance 150 Other Goals up/down 1 step using fWW SBA Days to Meet Goals 10 Frequency of Treatment Frequency Of Treatment Twice a Day Treatment Plan Physical Therapy Treatment Plan Bed Mobility Training,Transfer Training,Gait Training, Therapeutic Exercise,Balance Retraining,Post Op Education, Discharge Planning,Hot or Cold Pack,Neuromuscular Re-ed, Coordination Retraining,Manual Therapy Weight Bearing Status Weight Bearing Status Weight Bear as Tolerated Allowed Weight Bearing Amount (enter % RLE WBAT or #) (%) Recommendations To Nursing Amount of Assist Needed 1 Person Assist Discharge Recommendations PT Discharge Recommendations SNF Rehab Transportation Needs at Discharge Wheelchair/Cabulance
--- NOTE | 2021-12-08 12:34 | PM.PN.1 ---
Subjective Subjective Date Patient Seen: 12/08/21 Interval history: 66-year-old female with a history of hypertension hyperlipidemia multiple sclerosis with avascular necrosis of the right hip. Patient developed a spontaneous hip fracture. She underwent cephalomedullary nail placement and repair of a intertrochanteric fracture. She has been ambulating with physical therapy. She is somewhat unsteady on her feet due to her MS. She is agreeable to going to [facility] at discharge for ongoing rehabilitation. Her pain is controlled. She has no specific complaints Exam Vital Signs (past 8 hours): - 12/08/21 05:00 12/08/21 07:00 12/08/21 08:00 Temperature 96.7 F L 97.5 F L Pulse Rate 74 68 Respiratory Rate 20 18 Blood Pressure 148/79 H 165/82 H Pulse Oximetry 95 95 95 12/08/21 09:50 12/08/21 11:44 Temperature 98.1 F Pulse Rate 76 Respiratory Rate 16 Blood Pressure 149/86 H Pulse Oximetry 95 95 Fraction of Inspired Oxygen 28 Oxygen Delivery Method Room Air Oxygen Flow Rate 0 Narrative Exam Narrative: Pleasant female lying in bed in no obvious distress Resp Other: Lungs clear to auscultation Cardio Other: Cardiac exam: Regular rate and rhythm normal S1-S2 with a 2/6 systolic ejection GI Other: Abdomen soft and nontender Extrem Other: Extremity right hip with dressing in place Objective Labs Result Diagrams: 12/07/21 06:00 12/07/21 06:00 [facility] Medical History Anesthesia Anxiety (12/10/14) Chronic back pain Chronic thoracic back pain Depression (12/10/14) Endometriosis (~1973) Fibroids (~1976) Gastroesophageal reflux disease (04/28/15) Insomnia due to other mental disorder (10/11/16) Left buttock pain Left rib fracture (~11/2014) Lower back pain Mixed hyperlipidemia (10/11/16) Multiple sclerosis, primary progressive (~02/2015) Osteopenia Overweight (BMI 25.0-29.9) Prediabetes (10/11/16) Rosacea blepharoconjunctivitis Segmental and somatic dysfunction of rib cage Sprain of left foot Tobacco use disorder (12/10/14) Surgical History History of tonsillectomy (~195) S/P epidural steroid injection Status post cholecystectomy (~2007) Status post hysterectomy (~1990) Family History Mother Hyperlipidemia Lung cancer Alcoholism Anxiety Insomnia, unspecified type Hypertension Tobacco use disorder Macular degeneration Abdominal aortic aneurysm (AAA) without rupture Carotid artery disease, unspecified laterality Sister Hypertension High cholesterol Father No problems noted. Sister Hyperlipidemia Hypertension Social History household members: none Smoking Status: Current every day smoker alcohol intake: former Assessment & Plan Assessment & Plan narrative: 66-year-old female with a history of multiple sclerosis, hypertension, hyperlipidemia, anxiety, depression, status post recent surgery at [facility] for avascular necrosis of the hip here with a superior right femoral diaphyseal fracture Patient likely with underlying osteoporosis, osteopenia, leading to avascular necrosis Patient is status post cephalomedullary nail to the right subtrochanteric fracture Postoperatively would recommend bisphosphonate calcium and vitamin-D after she has recovered surgically Will discontinue Dilaudid, continue scheduled Tylenol, and oral oxycodone for pain Hypertension Will continue amlodipine 2.5 daily, and Coreg Depression and anxiety Will continue Paxil, trazodone, duloxetine, and buspironeHyperlipidemia Continue fenofibrate, and atorvastatinPatient will be placed on DVT prophylaxis She will need to continue DVT prophylaxis until January 03 Patient's medications have been reviewed by pharmacy and she will be resumed on her home medication regimen Anticipate discharge to [place] [facility] tomorrow Time Spent With Patient Critical Care time: I spent a total of [] minutes of critical care time on this patient's care today; this time is exclusive of procedural time. Quality VTE Deep Vein Thrombosis/Pulmonary Embolism Present on Admission: No
[2021-12-08] MEDS: FENOFIBRATE, MICRONIZED 67 MG CAPSULE 134 MG PO (15:09)
[2021-12-08 15:34] LABS: COVID19 -Nasal RAPID Negative (Negative)
--- NOTE | 2021-12-08 15:48 | PT.IPTN ---
Current Diagnoses Unilateral primary osteoarthritis, right hip (12/06/21) Displaced subtrochanteric fracture of right femur, initial encounter for closed fracture (12/06/21) Surgery Performed Operation Date: 12/06/21 18:45 Actual Procedures p Intramedullary Nailing Femur(Right) - Angi Shepard MD Physical Therapy Treatment Note M2 PT-IP Current Condition Start: 12/07/21 13:54 Freq: NEEDED Status: Active Protocol: Document 12/07/21 10:11 AB (Rec: 12/07/21 14:20 AB [email or web address]) Physical Therapy Current Condition Current Condition Evaluation Date 12/07/21 Treatment Diagnosis R femur fx s/p nailing; difficulty in walking Onset Date 12/06/21 M3 PT-IP Subjective Start: 12/07/21 13:54 Freq: NEEDED Status: Active Protocol: Document 12/08/21 15:32 KS (Rec: 12/08/21 16:53 KS [id number]) Subjective Physical Therapy Visit Type Type Treatment Note Visit Start Time 15:32 Visit Stop Time 15:48 Total Visit Minutes 16 Notes Sister present Number of BOX LIDDER Visits 2 Physical Therapy Visit Comments Patient Comments agreeable to do PT M4 PT-IP Mobility and Gait Start: 12/07/21 13:54 Freq: NEEDED Status: Active Protocol: Document 12/08/21 15:32 KS (Rec: 12/08/21 16:53 KS [id number]) PT-Transfer Assessment Sit to and From Stand Sit to and from Stand Minimal Assistance,1 Person Assistance,Use of Upper Extremities Equipment Transfer Assistive Device Gait Belt,Front Wheeled Walker Transfers Transfer Destination Chair Transfer Technique ambulated w/ FWW Transfer Ability Level of Assist Minimal Assistance,1 Person Assistance,Use of Upper Extremities Comments Mobility Comments Pt in chair w/ sister in room upon arrival and reporting fatigue but agreeable to ambulate. States she has been perfoming ankle pumps and glute sets as instructed. Min A for sit<>Stand w FWW. Pt then ambulated ~40 ft around room w/ FWW CGA slowly w/ decreased stride and foot clearance but no LOB. Pt reported fatigue and requesting to get back into chair. CGA and cues for slow descent and use of armrests. Pt left in chair w/ all needs in reach. Gait Assessment Gait Gait Assistance Required: Contact Guard Assist,1 Person Assist Distance (Feet) 40 Able to Maintain Weight Bearing Status Yes During Gait Assistive Devices Assistive Device Gait Belt,Front Wheeled Walker Orthotic/Prosthetic Devices or Brace: No Gait Deviations General Gait Pattern Antalgic,Ataxic,Decreased Stride Length,Decreased Feet Clearance Factors Limiting Gait Function Factors Limiting Gait Function Decreased Activity Tolerance, Decreased Sensation,Decreased Strength,Difficulty Following Directions,Limited Range of Motion,Pain,Poor Balance,Poor Safety Awareness Comments Gait Comments Pt decreased stride and foot clearance during ambulation w/ FWW. Hip hiking rather than bending R knee, improvement w/ cues. PT-Balance Assessment Sitting Balance and Reactions Static Sitting Balance Ability Good Dynamic Sitting Balance Ability Good Standing Balance and Reactions Static Standing Balance Ability Fair Dynamic Standing Balance Ability Fair Device Used FWW M5 PT-IP Objective Assessments Start: 12/07/21 13:54 Freq: NEEDED Status: Active Protocol: Document 12/07/21 10:11 AB (Rec: 12/07/21 14:20 AB [id number]) Orientation Orientation/Cognition Level of Alertness Alert Orientation Name,Place,Situation Language Function Ability No Deficits Noted Safety Awareness Decreased Safety Awareness Memory Description Short Term Impaired,Fdc Impaired Gross Range of Motion Lower Extremity ROM Assessment Within Functional Limits Strength Lower Extremity Strength Assessment Bilaterally Impaired Comments Strength Comments LLE: 4-/5 RLE: 3+/5 Sensation Assessment Sensation Gross Sensation Right LE Impaired,Left LE Impaired Light Touch Impaired Proprioception (Position) Impaired Sensation Description Numbness Comments Sensation Comments decrease sensation on BLE Muscle Tone Muscle Tone WNL Yes M6 PT-IP Treatment Start: 12/07/21 13:54 Freq: NEEDED Status: Active Protocol: Document 12/08/21 15:32 KS (Rec: 12/08/21 16:53 KS [id number]) Physical Therapy Treatment Exercises Exercises Ankle Pumps,Gluteal Sets Education Education Provided Weight Bearing Status,Safety M7 PT-IP Assessment and Plan Start: 12/07/21 13:54 Freq: NEEDED Status: Active Protocol: Document 12/08/21 15:32 KS (Rec: 12/08/21 16:53 KS [id number]) PT Summary Assessment and Plan Potential Rehabilitation Potential Fair Summary Impairments Pain,ROM,Strength,Balance, Coordination,Sensation,Tone, Cognition,Bed Mobility, Transfers,Gait,Activity Tolerance Progress Towards Goals Slow Progress due to Medical Issues,Slow Progress due to Activity Tolerance,Slow Progress - Other Assessment Summary Pt limited by low activity tolerance, weakness, and comorbidities. Min A for sit<> Stand and CGA for 40 ft ambulation. Pt w/ quick approach to fatigue during ambulation and requesting to sit back down. She is unsafe to ambulate on her own and has increase risk of falls due to decreased stride and foot clearance. She will require SNF to improve activity tolerance and functional mobility independence. Goals Bed Mobility Goal Standby Assistance Transfer Goal Standby Assistance,Front Wheeled Walker Gait Goal Standby Assistance,Front Wheel Walker Gait Distance 150 Other Goals up/down 1 step using fWW SBA Days to Meet Goals 10 Frequency of Treatment Frequency Of Treatment Twice a Day Treatment Plan Physical Therapy Treatment Plan Bed Mobility Training,Transfer Training,Gait Training, Therapeutic Exercise,Balance Retraining,Post Op Education, Discharge Planning,Hot or Cold Pack,Neuromuscular Re-ed, Coordination Retraining,Manual Therapy Weight Bearing Status Weight Bearing Status Weight Bear as Tolerated Allowed Weight Bearing Amount (enter % RLE WBAT or #) (%) Recommendations To Nursing Amount of Assist Needed 1 Person Assist Discharge Recommendations PT Discharge Recommendations SNF Rehab Transportation Needs at Discharge Wheelchair/Cabulance
--- NOTE | 2021-12-08 16:54 | PC.NURSE ---
1509: pt ambulated to the BR. medicated with toradol. cms+. pp++. pt is comfortable. covid swab done.
[2021-12-08] MEDS: PREGABALIN 50 MG CAPSULE 100 MG PO (20:41)
[2021-12-08] MEDS: methocarbamoL 500 MG TABLET PO (20:42)
[2021-12-08] MEDS: PARoxetine 20 MG TABLET 60 MG PO (20:42)
[2021-12-08] MEDS: ACETAMINOPHEN 325 MG TABLET 975 MG PO (22:47)
[2021-12-08] MEDS: TRAZODONE 100 MG TABLET PO (22:48)
[2021-12-09] VITALS (8 sets, daily range): BP systolic 155–174; BP diastolic 78–84; PULSE 74–79; RESP 16–18; TEMP 36.5–36.6; O2SAT 93–95
[2021-12-09] MEDS: KETOROLAC 30 MG/ML VIAL IV ×2 (02:03→09:31)
[2021-12-09] MEDS: ACETAMINOPHEN 325 MG TABLET 975 MG PO (05:54)
[2021-12-09] MEDS: DICLOFENAC 0.1% 1 EACH EYE-BOTH (05:56)
--- NOTE | 2021-12-09 08:23 | PC.NURSE ---
Addendum entered by Brad Adams R.N. 12/09/21 13:35: [facility] here to bulk picker Pt for transfer to snf. Pt a&O agreeable to transfer. IV d/c'd per protocal. Pt dressed, Sister Brandy here to help with transfer to SNF. Pt's dressing CDI. Addendum entered by Brad Adams R.N. 12/09/21 11:32: Pt resting in bed prior to transfer to [facility] around 13:00 Original Note: Pt alert and oriented offers no overt complaint. expecting to go to SNF today. Request that only female POULTRY PATHOLOGIST's assist with bathroom needs. Pt watching TV. Asking appropriate questions about transfer to SNF.
--- NOTE | 2021-12-09 08:55 | OT.IP.TRT ---
Current Diagnoses Unilateral primary osteoarthritis, right hip (12/06/21) Displaced subtrochanteric fracture of right femur, initial encounter for closed fracture (12/06/21) Surgery Performed Operation Date: 12/06/21 18:45 Actual Procedures p Intramedullary Nailing Femur(Right) - Angi Shepard MD Occupational Therapy Treatment Note M2 OT-IP Current Condition Start: 12/08/21 11:41 Freq: Status: Active Protocol: Document 12/08/21 09:00 [facility] (Rec: 12/08/21 11:53 [facility] [id number]) Occupational Therapy Current Condition Current Condition Evaluation Date 12/08/21 Treatment Diagnosis S/p Right femur fx Diagnosis Onset Date 12/06/21 Weight Bearing Status Weight Bearing Status Weight Bear as Tolerated M3 OT- IP Subjective and Pain Start: 12/08/21 11:41 Freq: Status: Active Protocol: Document 12/09/21 09:14 [facility] (Rec: 12/09/21 09:20 [facility] [id number]) OT- Subjective Occupational Therapy Visit Type Type Treatment Note Visit Start Time 08:55 Visit Stop Time 09:12 Total Visit Minutes 17 Occupational Therapy Visit Comments Patient Comments Pt requesting to use the toilet. Patient/Caregiver Goals To go to skilled rehab OT Pain Assessment Pain When Pain Assessed During Mobility Pain Present Pain Present Pain Reported Location right hip Intensity 5 Scale Used Numeric (0 - 10) M4 OT- IP ADL's Start: 12/08/21 11:41 Freq: Status: Active Protocol: Document 12/09/21 09:14 [facility] (Rec: 12/09/21 09:20 [facility] [id number]) OT ADL-Dressing Comments OT Dressing Comments Able to issue pt bolt cutter, long handled shoe horn and long handled sponge so able to practice at skilled rehab as pt going today. Sock aid given yesterday. OT ADL-Toileting General Evaluation Toileting Ability Contact Guard Assistance Areas Needing Assistance Manage Clothing Comments OT Toileting Comments CGA for balance while pulling up brief over her hips. Suggested to place one hand at a time on the FWW while the other hand is pulling up on her brief. M5 OT- IP IADL's Start: 12/08/21 11:41 Freq: Status: Active Protocol: Document 12/08/21 09:00 [facility] (Rec: 12/08/21 11:53 [facility] [id number]) OT-Instrumental Activities of Daily Living Home Safety Awareness Awareness of Need for Assistance at Home Good Awareness Ability to Problem Solve Emergency Able to Problem Solve Situations Home Safety Comments If going home pt would need assist for all IADl need and for some ADL needs at this time. M6 OT- IP Functional Cognition Start: 12/08/21 11:41 Freq: Status: Active Protocol: Document 12/08/21 09:00 [facility] (Rec: 12/08/21 11:53 [facility] [id number]) Cognitive Factors Limiting Selfcare Function Cognitive Ability Level of Alertness Alert Patient Orientation Name,Place,Situation Attention Span Ability Capable of Focused Attention, Capable of Sustained Attention Ability to Follow Commands Able to Follow Multi-Step Commands Problem Solving Ability No deficits Noted Cognitive Comments Cognitive Assessment Comments NO deficits noted on OT eval. OT- Vision and Hearing OT- Hearing Assessment OT- Hearing Assessment WFL OT- Vision Assessment Visual Acuity WFL,Glasses All The Time M7 OT- IP Mobility and Balance Start: 12/08/21 11:41 Freq: Status: Active Protocol: Document 12/09/21 09:14 [facility] (Rec: 12/09/21 09:20 [facility] [id number]) OT- Bed Mobility Assessment Supine to Sit Supine to Sit Assist Standby Assistance Sit to Supine Sit to Supine Assist Standby Assistance OT-Transfer Assessment Sit to and From Stand Sit to and from Stand Standby Assistance Transfers Transfer Ability Standby Assistance Technique Transfer Destination Bed Transfer Technique Stand Step Pivot Devices Transfer Assistive Devices Gait Belt,Front Wheeled Walker Comments Mobility Comments SBA to stand from high surface or use of grab bar to assist to stand. SBA with FWW today walking to and and from the toilet. OT- Balance Assessment Sitting Balance and Reactions Static Sitting Balance Ability Good Dynamic Sitting Balance Ability Good Standing Balance and Reactions Static Standing Balance Ability Fair M8 OT- IP Objective Assessments Start: 12/08/21 11:41 Freq: Status: Active Protocol: Document 12/08/21 09:00 [facility] (Rec: 12/08/21 11:53 [facility] [id number]) OT Gross Range of Motion Upper Extremity Range of Motion Assessment Within Functional Limits OT Strength Upper Extremity Strength Assessment Within Functional Limits M9 OT- IP Assessment and Plan Start: 12/08/21 11:41 Freq: Status: Active Protocol: Document 12/09/21 09:14 [facility] (Rec: 12/09/21 09:20 [facility] [id number]) OT Summary Assessment and Plan Potential Rehabilitation Potential Excellent Analytic Complexity at Evaluation Low Summary OT Impairments Balance,Functional Mobility, Dressing,Toileting,Bathing, Toilet Transfers,Shower Transfers Progress Towards Goals Progressing Toward Goals Assessment Summary Pt improving with her mobility needs and ADL's with use of LB dressing equipment in which she was issued and to continue to practice while at skilled rehab. Pt looking to go to skilled rehab today. Goals Grooming Goal Independent Dressing Goal Independent Toileting Goal Independent Bathing Goal Independent Toilet Transfer Goal Independent Shower Transfer Goal Independent Days to Meet Goals 10 Frequency of Treatment Frequency Of Treatment Once a Day Treatment Plan OT Treatment Plan ADL Training,Functional Mobility,Patient/Family Education,Discharge Planning Discharge Recommendations OT Discharge Recommendations SNF Rehab Transportation Needs at Discharge Wheelchair/Cabulance
[2021-12-09] MEDS: PREGABALIN 50 MG CAPSULE PO (09:28)
[2021-12-09] MEDS: FENOFIBRATE, MICRONIZED 67 MG CAPSULE 134 MG PO (09:28)
[2021-12-09] MEDS: DOCUSATE 100 MG CAPSULE PO (09:28)
[2021-12-09] MEDS: BUSPIRONE 5 MG TABLET 10 MG PO (09:28)
[2021-12-09] MEDS: DULOXETINE 30 MG CAPSULE PO (09:29)
[2021-12-09] MEDS: carvediloL 3.125 MG TABLET PO (09:29)
[2021-12-09] MEDS: AMLODIPINE 5 MG TABLET 2.5 MG PO (09:29)
[2021-12-09] MEDS: ASPIRIN EC 81 MG TABLET 162 MG PO (09:47)
[2021-12-09] MEDS: ATORVASTATIN 20 MG TABLET 80 MG PO (09:47)
[2021-12-09] MEDS: SODIUM CHLORIDE 0.9% FLUSH 10 ML IV (09:48)
[2021-12-09] MEDS: diazePAM 5 MG TABLET PO (09:54)
--- NOTE | 2021-12-09 10:43 | PT.IPTN ---
Current Diagnoses Unilateral primary osteoarthritis, right hip (12/06/21) Displaced subtrochanteric fracture of right femur, initial encounter for closed fracture (12/06/21) Surgery Performed Operation Date: 12/06/21 18:45 Actual Procedures p Intramedullary Nailing Femur(Right) - Angi Shepard MD Physical Therapy Treatment Note M2 PT-IP Current Condition Start: 12/07/21 13:54 Freq: NEEDED Status: Discharge Protocol: Document 12/07/21 10:11 AB (Rec: 12/07/21 14:20 AB [id number]) Physical Therapy Current Condition Current Condition Evaluation Date 12/07/21 Treatment Diagnosis R femur fx s/p nailing; difficulty in walking Onset Date 12/06/21 M3 PT-IP Subjective Start: 12/07/21 13:54 Freq: NEEDED Status: Discharge Protocol: Document 12/09/21 10:20 KS (Rec: 12/09/21 14:21 KS [id number]) Subjective Physical Therapy Visit Type Type Treatment Note Visit Start Time 10:20 Visit Stop Time 10:43 Total Visit Minutes 23 Number of DOCK GUARD Visits 3 Physical Therapy Visit Comments Patient Comments agreeable to do PT M4 PT-IP Mobility and Gait Start: 12/07/21 13:54 Freq: NEEDED Status: Discharge Protocol: Document 12/09/21 10:20 KS (Rec: 12/09/21 14:21 KS [id number]) PT-Bed Mobility Assessment Supine to Sit Supine to Sit Standby Assistance,Head of Bed Elevated,Bedrails Scooting Scooting to Edge of Bed Contact Guard Assistance PT-Transfer Assessment Sit to and From Stand Sit to and from Stand Contact Guard Assistance,1 Person Assistance,Use of Upper Extremities Equipment Transfer Assistive Device Gait Belt,Front Wheeled Walker Orthotic/Prosthetic Devices or Brace: No Transfers Transfer Destination Chair,Toilet Transfer Technique ambulated w/ FWW Transfer Ability Level of Assist Contact Guard Assistance,1 Person Assistance,Use of Upper Extremities Comments Mobility Comments Pt in bed upon arrival and requesting to use bathroom. SBA for sup<>sit and scooting and CGA and cues for sit<> Stand w/ FWW. Pt ambulated to toilet CGA and after voiding ambulated additional 50 ft in room before requesting to get into chair. Pt left in chair w / all needs in reach. Gait Assessment Gait Gait Assistance Required: Contact Guard Assist,1 Person Assist Distance (Feet) 60 Able to Maintain Weight Bearing Status Yes During Gait Assistive Devices Assistive Device Gait Belt,Front Wheeled Walker Gait Deviations General Gait Pattern Antalgic,Ataxic,Decreased Stride Length,Decreased Feet Clearance Factors Limiting Gait Function Factors Limiting Gait Function Decreased Activity Tolerance, Decreased Sensation,Decreased Strength,Difficulty Following Directions,Limited Range of Motion,Pain,Poor Balance,Poor Safety Awareness Comments Gait Comments Pt decreased stride and foot clearance during ambulation w/ FWW. PT-Balance Assessment Sitting Balance and Reactions Static Sitting Balance Ability Good Dynamic Sitting Balance Ability Good Standing Balance and Reactions Static Standing Balance Ability Fair Dynamic Standing Balance Ability Fair Device Used FWW M5 PT-IP Objective Assessments Start: 12/07/21 13:54 Freq: NEEDED Status: Discharge Protocol: Document 12/07/21 10:11 AB (Rec: 12/07/21 14:20 AB [id number]) Orientation Orientation/Cognition Level of Alertness Alert Orientation Name,Place,Situation Language Function Ability No Deficits Noted Safety Awareness Decreased Safety Awareness Memory Description Short Term Impaired,Half-Way Impaired Gross Range of Motion Lower Extremity ROM Assessment Within Functional Limits Strength Lower Extremity Strength Assessment Bilaterally Impaired Comments Strength Comments LLE: 4-/5 RLE: 3+/5 Sensation Assessment Sensation Gross Sensation Right LE Impaired,Left LE Impaired Light Touch Impaired Proprioception (Position) Impaired Sensation Description Numbness Comments Sensation Comments decrease sensation on BLE Muscle Tone Muscle Tone WNL Yes M6 PT-IP Treatment Start: 12/07/21 13:54 Freq: NEEDED Status: Discharge Protocol: Document 12/09/21 10:20 KS (Rec: 12/09/21 14:21 KS [id number]) Physical Therapy Treatment Education Education Provided Weight Bearing Status,Safety M7 PT-IP Assessment and Plan Start: 12/07/21 13:54 Freq: NEEDED Status: Discharge Protocol: Document 12/09/21 10:20 KS (Rec: 12/09/21 14:21 KS [id number]) PT Summary Assessment and Plan Potential Rehabilitation Potential Fair Summary Impairments Pain,ROM,Strength,Balance, Coordination,Sensation,Tone, Cognition,Bed Mobility, Transfers,Gait,Activity Tolerance Progress Towards Goals Slow Progress due to Medical Issues,Slow Progress due to Activity Tolerance,Slow Progress - Other Assessment Summary Pt continues to be limited in mobility by low activity tolerance, fatigue, and MS. She was SBA to CGA throughout treatment today and able to tolerate ~60 ft ambulation w/ FWW. She will benefit from SNF to improve activity tolerance and functional independence as she is high fall risk and does not have assist at home. Goals Bed Mobility Goal Standby Assistance Transfer Goal Standby Assistance,Front Wheeled Walker Gait Goal Standby Assistance,Front Wheel Walker Gait Distance 150 Other Goals up/down 1 step using fWW SBA Days to Meet Goals 10 Frequency of Treatment Frequency Of Treatment Twice a Day Treatment Plan Physical Therapy Treatment Plan Bed Mobility Training,Transfer Training,Gait Training, Therapeutic Exercise,Balance Retraining,Post Op Education, Discharge Planning,Hot or Cold Pack,Neuromuscular Re-ed, Coordination Retraining,Manual Therapy Weight Bearing Status Weight Bearing Status Weight Bear as Tolerated Allowed Weight Bearing Amount (enter % RLE WBAT or #) (%) Recommendations To Nursing Amount of Assist Needed 1 Person Assist Discharge Recommendations PT Discharge Recommendations SNF Rehab Transportation Needs at Discharge Wheelchair/Cabulance
--- NOTE | 2021-12-09 12:12 | PM.DS.1 ---
History of Present Illness History of Present Illness Chief complaint: right femur pain Narrative: The patient is a 66-year-old female with a history of multiple sclerosis, low back pain, hypertension, hyperlipidemia, gastroesophageal reflux disease, chronic back pain, depression, anxiety who underwent surgery at [facility] and October.? She has continued to have joint pain and difficulty ambulating.? The patient had a mechanical fall earlier today.? She noted she got extreme pain heard a ?pop? and fell to the floor.? The patient was unable to bear weight.? She was unable to ambulate.? She was brought in to the emergency room for evaluation.? X-rays of the hip revealed a superior right femoral diaphyseal fracture.? Patient is admitted to the hospital for definitive surgical repair.? She is in significant pain.? Minimal movement causes excruciating pain for her. Discharge Providers Provider Date of admission: 12/06/21 09:45 Discharge Date: 12/09/21 Primary care physician: Noemy Hernandez PA-C Consults: 12/06/21 10:31 Consult to Physician Routine Comment: Consulting Provider: Angi Shepard Reason for consultation: right femur Has provider been notified: Yes 12/06/21 14:27 Consult to Discharge Planning Routine Comment: Consult to Physical Therapy Evaluate & Treat Comment: Physician Instructions: Evaluate and Treat 12/06/21 19:49 Consult to Discharge Planning Routine Comment: Consult to Physical Therapy Evaluate & Treat Comment: wbat (with assitive devices RLE) Physician Instructions: Evaluate and Treat Consult to Respiratory Therapy Evaluate & Treat Comment: Physician Instructions: Evaluate and treat 12/07/21 12:53 Consult to Occupational Therapy Evaluate & Treat Comment: Physician Instructions: Evaluate and treat Discharge provider: Sukhjinder Meyer MD Summary Hospital Course Discharge Diagnosis: 1.Right hip fracture, pathological, secondary to osteoporosis 2. Avascular necrosis of right hip 3. Cigarette nicotine dependency 4. Multiple sclerosis, unknown remission status 5. Hypertension Procedure: Right hip ORIF on 12/06/2021 Freezer Person: Dr. Jesika Shepard for orthopedic surgery Hospital Course: 66-year-old female with a history of multiple sclerosis, hypertension, hyperlipidemia, anxiety, depression, status post recent surgery at [facility] for avascular necrosis of the hip here with a superior right femoral diaphyseal fracture Patient likely with underlying osteoporosis, osteopenia, leading to avascular necrosis Patient is status post cephalomedullary nail to the right subtrochanteric fracture Postoperatively would recommend bisphosphonate calcium and vitamin-D after she has recovered surgically Will discontinue Dilaudid, continue scheduled Tylenol, and oral hydrocodone as neededfor pain Hypertension Will continue amlodipine 2.5 daily, and Coreg Depression and anxiety Will continue Paxil, trazodone, duloxetine, and buspironeHyperlipidemia Continue fenofibrate, and atorvastatinPatient will be placed on DVT prophylaxis She will need to continue DVT prophylaxis until January 03 Patient's medications have been reviewed by pharmacy and she will be resumed on her home medication regimen Discharge to [facility] for postop rehab Status at Discharge Cognitive/behavioral status at discharge: oriented Functional status at discharge: uses cane/walker Overall status at discharge: patient is not back to baseline Time Spent with Patient Time spent: Greater than 30 minutes Exam Vital Signs (past 8 hours): - 12/09/21 06:30 12/09/21 07:00 12/09/21 08:00 Temperature 97.7 F 97.8 F Pulse Rate 79 77 Respiratory Rate 18 16 Blood Pressure 174/80 H 160/78 H Pulse Oximetry 94 94 95 12/09/21 08:46 12/09/21 09:29 12/09/21 11:00 Temperature Pulse Rate 77 Respiratory Rate Blood Pressure 160/78 H Pulse Oximetry 94 94 Fraction of Inspired Oxygen 28 Oxygen Delivery Method Room Air Oxygen Flow Rate 0 Objective Labs Result Diagrams: 12/07/21 06:00 12/07/21 06:00 Labs: Laboratory Results - last 24 hr 12/08/21 15:01 SARS-CoV-2 (PCR) Negative [facility] Medical History Anesthesia Anxiety (12/10/14) Chronic back pain Chronic thoracic back pain Depression (12/10/14) Endometriosis (~1973) Fibroids (~1976) Gastroesophageal reflux disease (04/28/15) Insomnia due to other mental disorder (10/11/16) Left buttock pain Left rib fracture (~11/2014) Lower back pain Mixed hyperlipidemia (10/11/16) Multiple sclerosis, primary progressive (~02/2015) Osteopenia Overweight (BMI 25.0-29.9) Prediabetes (10/11/16) Rosacea blepharoconjunctivitis Segmental and somatic dysfunction of rib cage Sprain of left foot Tobacco use disorder (12/10/14) Surgical History History of tonsillectomy (~1958) S/P epidural steroid injection Status post cholecystectomy (~2007) Status post hysterectomy (~1990) Family History Mother Hyperlipidemia Lung cancer Alcoholism Anxiety Insomnia, unspecified type Hypertension Tobacco use disorder Macular degeneration Abdominal aortic aneurysm (AAA) without rupture Carotid artery disease, unspecified laterality Sister Hypertension High cholesterol Father No problems noted. Sister Hyperlipidemia Hypertension Social History household members: none Smoking Status: Current every day smoker alcohol intake: former Discharge Plan Discharge Plan Patient Disposition: SNF Transfer to: [facility] Consult as needed: Dental, Hearing, Mental health, Podiatry and Vision Provider Discharge Comment: 66 yo with MS, hx rt hip avascular necrosis, s/p ORIF secondary to right hip fx Discharge orders & Medications Prescriptions: New acetaminophen 325 mg Tablet 650 mg PO Q8HR Qty: 60 0RF enoxaparin [Lovenox] 40 mg/0.4 mL Syringe 40 mg SUBCUT DAILY 25 Days Qty: 10 0RF hydrocodone-acetaminophen 5-325 mg tablet 1 - 2 tab PO Q6HR PRN (Reason: pain) Qty: 60 0RF ondansetron HCl 4 mg tablet 4 mg PO Q8H PRN (Reason: nausea and vomiting) Qty: 20 0RF Continued diazepam 5 mg tablet 5 mg PO TID PRN (Reason: anxiety) Qty: 270 1RF duloxetine 30 mg capsule,delayed release(DR/EC) 30 mg PO BID Qty: 180 3RF (DME) disabled parking permit Qty: 1 0RF Rx Instructions: I find this patient to be medically disabled and qualified for disabled parking as indicated, and signed, on the accompanying Disabled Parking Application for Individuals ; carisoprodol 350 mg tablet See Rx Instructions .ROUTE .COMPLEX Qty: 270 3RF Dose Instruction: TAKE ONE TABLET BY MOUTH THREE TIMES DAILY Rx Instructions: TAKE ONE TABLET BY MOUTH THREE TIMES DAILY trazodone 50 mg tablet 100 mg PO BEDTIME PRN (Reason: insomnia) Qty: 180 1RF Rx Instructions: 100mg at bedtime, may take additional 100mg as needed fenofibrate 160 mg tablet 160 mg PO DAILY Qty: 90 1RF buspirone 10 mg tablet See Rx Instructions .ROUTE .COMPLEX Qty: 540 0RF Dose Instruction: TAKE 2 TABLETS (20MG) THREE TIMES A DAY (MAX DAILY DOSE 60MG) Rx Instructions: TAKE 2 TABLETS (40MG) THREE TIMES A DAY (MAX DAILY DOSE 120MG) aspirin 81 mg Tablet,Delayed Release (Dr/Ec) 162 mg PO DAILY Qty: 60 0RF carvedilol [Coreg] 3.125 mg Tablet 3.125 mg PO BID Qty: 60 2RF atorvastatin 80 mg tablet 80 mg PO DAILY Qty: 60 0RF amlodipine 2.5 mg Tablet 2.5 mg PO DAILY 0RF meclizine 25 mg Capsule 25 mg PO BID PRN (Reason: Vertigo) 0RF ergocalciferol (vitamin D2) 25,000 unit Capsule 50,000 unit PO QWEEK 0RF Ocrevus 30 mg/mL Solution 600 mg IV [id number] 0RF paroxetine HCl 30 mg tablet 60 mg PO BEDTIME 0RF pregabalin 50 mg capsule See Rx Instructions .ROUTE .COMPLEX 0RF Rx Instructions: 50mg (1 cap) every morning and 100mg (2 caps) every bedtime carisoprodol [Soma] 350 mg tablet 350 mg TID 0RF ergocalciferol (vitamin D2) [Vitamin D2] 1,250 mcg (50,000 unit) capsule 1,250 mcg PO DAILY 0RF Follow up/Referrals: Angi Shepard MD [Physician] - 2 Weeks Noemy Hernandez PA-C [Primary Care Provider] - Discharge Health Status Multidrug resistant organism: No MDRO Precautions: [place] Diet/Activity/Treatments Diet: Regular Liquid consistency: Normal/Thin Food texture: Regular [facility] Reason for rehabilitation: Post-operative therapy Rehab type: Physical therapy and Occupational therapy Discharge Data Primary Care Provider: Noemy Hernandez VTE Deep Vein Thrombosis/Pulmonary Embolism Present on Admission: No
[2021-12-09] MEDS: HYDROCODONE/ACET 10/325 TABLET 1 TAB PO (12:42)
== END 2021-12-09 13:35 | DRG 481 ==
LOC: ED 09:42 → AC 09:45
PROVIDERS: Orthopaedic Surgery Foot and Ankle Surgery; Admitting Provider Internal Medicine; Emergency Provider Emergency Medicine; PCP Physician Assistant; Referring Provider Student in an Organized Health Care Education/Training Program; Visit Provider Internal Medicine
PROC: 0QH636Z Insertion of Intramedullary Internal Fixation Device into Right Upper Femur, Percutaneous Approach (ICD-10-PCS; CPT 27245; principal; 2021-12-06 18:45)
DX: M84.451A Pathological fracture, right femur, initial encounter for fracture (principal); M87.9 Osteonecrosis, unspecified; G35 Multiple sclerosis; F17.210 Nicotine dependence, cigarettes, uncomplicated; I10 Essential (primary) hypertension; F32.A Depression, unspecified; F41.9 Anxiety disorder, unspecified; E78.5 Hyperlipidemia, unspecified; G47.00 Insomnia, unspecified; G89.29 Other chronic pain; M54.50 Low back pain, unspecified; Z20.822 Contact with and (suspected) exposure to COVID-19
CPT/HCPCS: 36415; 71045; 73502; 73552; 76000; 80048; 80053; 81001; 82550; 83880; 84484; 85025; 85027; 87635; 94760; 96361; 96374; 97116; 97162; 97165; 97530; 97535; 99284; C9803; J0171; J0690; J1100; J1170; J1650; J1885; J2250; J2405; J2704; J3010

== ENCOUNTER → 2022-01-16 11:01 | Outpatient (ROUT) | payer MEDICARE, OTHER, SELFPAY ==
[2021-12-06 13:04] VITALS: BMI 26.6
[2022-01-16 11:07] LABS: Add Manual Diff / Slide Review NO; Basophils Absolute Auto 0 /uL (0-100); Basophils Percent Auto 0.7 % (0-2); Eosinophils Absolute Auto 100 /uL (0-450); Eosinophils Percent Auto 1.6 % (2-4); Hematocrit 39.2 % (36-46); Hemoglobin 13.4 g/dL (12.0-16.0); Lymphocytes Absolute Auto 1000 /uL (1100-4500); Lymphocytes Percent Auto 15.6 % (25-40); Mean Corpuscular HGB Conc 34.2 % (30-36); Mean Corpuscular Volume 93.3 fL (80-100); Monocytes Absolute Auto 400 /uL (0-900); Monocytes Percent Auto 6.9 % (3-14); Neutrophils Absolute Auto 4800 /uL (1500-7000); Neutrophils Percent Auto 75.2 % (50-75); Platelet Count 288 X10^3/uL (150-400); Red Cell Distribution Width 12.6 % (11.6-14.8); White Blood Cell Count 6.4 X10^3/uL (4.5-11.0)
[2022-01-16 11:22] LABS: Alanine Aminotransferase 25 IU/L (<35); Albumin 4.4 g/dL (3.5-5.0); Albumin Globulin Ratio 1.8 (1.0-2.8); Alkaline Phosphatase 61 U/L (38-126); Aspartate Aminotransferase 23 IU/L (14-36); BUN Creatinine Ratio 20.2 (6-22); Bilirubin Total 0.3 mg/dL (0.2-1.3); Blood Urea Nitrogen 17 mg/dL (7-17); C-Reactive Protein Quant < 0.5 mg/dL (<1.0); Calcium 9.1 mg/dL (8.4-10.2); Carbon Dioxide 28 mmol/L (22-32); Chloride 107 mmol/L (98-107); Estimated Glomerular Filt Rate > 60.0 mL/min (>60); Globulin 2.4 g/dL (1.7-4.1); Glucose 142 mg/dL (80-110); HEMOLYSIS < 15 (0-50); Potassium 3.5 mmol/L (3.4-5.1); Sodium 141 mmol/L (137-145); Total Protein 6.8 g/dL (6.3-8.2)
[2022-01-16 11:28] LABS: Erythrocyte Sedimentation Rate 1 MM/HR (0-20)
== END ==
PROVIDERS: PCP Physician Assistant; Visit Provider Physician Assistant
DX: Z79.01 Long term (current) use of anticoagulants; M87.9 Osteonecrosis, unspecified; G53 Cranial nerve disorders in diseases classified elsewhere
CPT/HCPCS: 80053; 85025; 85651; 86140

== ENCOUNTER → 2022-01-17 11:26 | Outpatient (ROUT) | payer MEDICARE, OTHER, SELFPAY ==
[2021-12-06 13:04] VITALS: BMI 26.6
[2022-01-17 11:46] LABS: Hemoglobin A1C% w Est Avg Glu 5.5 % (4.0-6.0)
== END ==
PROVIDERS: PCP Physician Assistant; Visit Provider Physician Assistant
DX: R73.01 Impaired fasting glucose (principal)
CPT/HCPCS: 83036

== ENCOUNTER → 2022-06-22 14:18 | Outpatient (CLI) | payer MEDICARE, OTHER, SELFPAY ==
[2021-12-06 13:04] VITALS: BMI 26.6
--- NOTE | 2022-06-22 | DI.MG.S_ITS ---
BILATERAL DIGITAL SCREENING MAMMOGRAM 3D/2D WITH CAD: 06/22/2022 CLINICAL: Routine screening. Family history of breast cancer. Comparison is made to exams dated: 05/08/2019 mammogram, 03/08/2018 mammogram, and 12/07/2016 mammogram - [facility]. Both breasts are heterogeneously dense, which may obscure small masses (category c / 51-75% glandular tissue). Current study was also evaluated with a Computer Aided Detection (CAD) system. No significant masses, calcifications, or other findings are seen in either breast. There has been no significant interval change. IMPRESSION: NEGATIVE There is no mammographic evidence of malignancy. A 1 year screening mammogram is recommended. This exam was interpreted at Station ID: [id number]. NOTE: For mammograms, a report in lay terms will be sent to the patient. Approximately 15% of breast malignancies will not be visualized mammographically. In the management of a palpable breast mass, a negative mammogram must not discourage biopsy of a clinically suspicious lesion. Electronically Signed By: Erwin bishop/johnie:06/22/2022 17:11:38 letter sent: Normal Exam ACR BI-RADS Category 1: Negative [id number]
== END ==
PROVIDERS: PCP Family Medicine; Referring Provider Family Medicine; Visit Provider Family Medicine
DX: Z12.31 Encounter for screening mammogram for malignant neoplasm of breast (principal); Z80.3 Family history of malignant neoplasm of breast; Z13.820 Encounter for screening for osteoporosis; M85.89 Other specified disorders of bone density and structure, multiple sites; Z78.0 Asymptomatic menopausal state; G35 Multiple sclerosis; Z90.710 Acquired absence of both cervix and uterus
CPT/HCPCS: 77063; 77067; 77080; 77081

== ENCOUNTER → 2022-07-04 08:59 | Outpatient (CLI) | payer MEDICARE, OTHER, SELFPAY ==
[2021-12-06 13:04] VITALS: BMI 26.6
[2022-07-04 10:47] LABS: Add Manual Diff / Slide Review NO; Basophils Absolute Auto 0 /uL (0-100); Basophils Percent Auto 0.7 % (0-2); Eosinophils Absolute Auto 100 /uL (0-450); Eosinophils Percent Auto 3.3 % (2-4); Hematocrit 36.9 % (36-46); Hemoglobin 13.1 g/dL (12.0-16.0); Lymphocytes Absolute Auto 800 /uL (1100-4500); Lymphocytes Percent Auto 18.9 % (25-40); Mean Corpuscular HGB Conc 35.5 % (30-36); Mean Corpuscular Hemoglobin 33.1 PG (26-34); Mean Corpuscular Volume 93.3 fL (80-100); Monocytes Absolute Auto 400 /uL (0-900); Monocytes Percent Auto 10.2 % (3-14); Neutrophils Absolute Auto 2800 /uL (1500-7000); Neutrophils Percent Auto 66.9 % (50-75); Platelet Count 254 X10^3/uL (150-400); Red Blood Cell Count 3.95 X10^6/uL (4.0-5.2); Red Cell Distribution Width 12.7 % (11.6-14.8); White Blood Cell Count 4.3 X10^3/uL (4.5-11.0)
[2022-07-04 11:04] LABS: Alanine Aminotransferase 24 IU/L (<35); Albumin 4.1 g/dL (3.5-5.0); Albumin Globulin Ratio 1.9 (1.0-2.8); Alkaline Phosphatase 29 U/L (38-126); Aspartate Aminotransferase 19 IU/L (14-36); BUN Creatinine Ratio 19.8 (6-22); Bilirubin Total 0.4 mg/dL (0.2-1.3); Blood Urea Nitrogen 19 mg/dL (7-17); Calcium 9.1 mg/dL (8.4-10.2); Carbon Dioxide 28 mmol/L (22-32); Chloride 105 mmol/L (98-107); Cholesterol 138 mg/dL (140-199); Estimated Glomerular Filt Rate > 60 mL/min (>60); Globulin 2.2 g/dL (1.7-4.1); Glucose 103 mg/dL (80-110); HDL Cholesterol 42 mg/dL (40-60); HEMOLYSIS < 15 (0-50); LDL Cholesterol Calculated 66 mg/dL (<100); Potassium 3.9 mmol/L (3.4-5.1); Sodium 142 mmol/L (137-145); Total Protein 6.3 g/dL (6.3-8.2); Triglycerides 148 mg/dL (35-150)
[2022-07-04 11:20] LABS: Vitamin D 25 Hydroxy (D3) 76.6 ng/mL (30.0-100.0)
[2022-07-04 11:34] LABS: TSH w/ Reflex to FT4 1.89 uIU/mL (0.47-4.68)
[2022-07-04 11:37] LABS: Creatinine Urine Random 137.4 mg/dL
[2022-07-04 11:42] LABS: Microalbumi Creatinin Ratio Ur 6.5 ug/mg CR (<30); Microalbumin Urine Random 0.9 mg/dL (0-1.6)
[2022-07-04 12:08] LABS: Folate 9.9 ng/mL (2.76-20.0); Vitamin B12 973 pg/mL (239-931)
== END ==
PROVIDERS: PCP Family Medicine; Referring Provider Family Medicine; Visit Provider Family Medicine
DX: G35 Multiple sclerosis (principal); E78.5 Hyperlipidemia, unspecified; I10 Essential (primary) hypertension; E56.9 Vitamin deficiency, unspecified; M79.10 Myalgia, unspecified site
CPT/HCPCS: 36415; 80053; 80061; 82043; 82306; 82570; 82607; 82746; 84443; 85025

== ENCOUNTER → 2022-09-27 09:11 | Outpatient (CLI) | payer MEDICARE, OTHER, SELFPAY ==
[2021-12-06 13:04] VITALS: BMI 26.6
[2022-09-27 10:15] LABS: Add Manual Diff / Slide Review NO; Basophils Absolute Auto 0 /uL (0-100); Basophils Percent Auto 0.8 % (0-2); Eosinophils Absolute Auto 200 /uL (0-450); Eosinophils Percent Auto 3.6 % (2-4); Hematocrit 37.4 % (36-46); Hemoglobin 12.4 g/dL (12.0-16.0); Lymphocytes Absolute Auto 800 /uL (1100-4500); Lymphocytes Percent Auto 17.1 % (25-40); Mean Corpuscular HGB Conc 33.1 % (30-36); Mean Corpuscular Hemoglobin 31.5 PG (26-34); Mean Corpuscular Volume 95.1 fL (80-100); Monocytes Absolute Auto 400 /uL (0-900); Neutrophils Absolute Auto 3500 /uL (1500-7000); Neutrophils Percent Auto 70.5 % (50-75); Platelet Count 305 X10^3/uL (150-400); Red Blood Cell Count 3.93 X10^6/uL (4.0-5.2); Red Cell Distribution Width 12.7 % (11.6-14.8); White Blood Cell Count 4.9 X10^3/uL (4.5-11.0)
[2022-09-27 10:53] LABS: BUN Creatinine Ratio 20.4 (6-22); Blood Urea Nitrogen 23 mg/dL (7-17); Calcium 8.9 mg/dL (8.4-10.2); Carbon Dioxide 33 mmol/L (22-32); Chloride 99 mmol/L (98-107); Estimated Glomerular Filt Rate 53 mL/min (>60); Glucose 91 mg/dL (80-110); HEMOLYSIS < 15 (0-50); Potassium 4.1 mmol/L (3.4-5.1); Sodium 139 mmol/L (137-145)
== END ==
PROVIDERS: PCP Family Medicine; Referring Provider Student in an Organized Health Care Education/Training Program; Visit Provider Student in an Organized Health Care Education/Training Program
DX: Z01.818 Encounter for other preprocedural examination (principal)
CPT/HCPCS: 36415; 80048; 85025

== ENCOUNTER → 2023-06-25 08:04 | Outpatient (CLI) | payer MEDICARE, OTHER, SELFPAY ==
[2021-12-06 13:04] VITALS: BMI 26.6
--- NOTE | 2023-06-25 | DI.RAD.S_ITS ---
PROCEDURE: XR HIP W PEL IF DONE RT 2V INDICATIONS: right hip pain, s/p fall, h/o joint replacement TECHNIQUE: AP pelvis with lateral view(s) of the right hip(s). COMPARISON: [facility], CR, XR PELVIS WITH LATERAL HIP RIGHT, 03/20/2023, 10:19. [facility], CR, XR HIP W PEL IF DONE RT 2V, 12/06/2021, 8:42. FINDINGS: Bones: No acute fractures or dislocations. Pelvic ring appears intact. No suspicious bony lesions. Right hip arthroplasty is stable. Hardware is intact without hardware fracture or periprosthetic lucency to suggest loosening. Alignment is stable. Moderate arthritic changes are present within the right hip. Soft tissues: The visualized bowel gas pattern is normal. No suspicious soft tissue calcifications. IMPRESSION: Stable appearance of right hip arthroplasty. No visualized acute fracture or dislocation. However, if clinical concern and/or pain persist, short interval imaging followup in 7-10 days is recommended, as occult injury cannot be definitively excluded. Dictated by: Uma Edmond M.D. on 06/25/2023 at 17:01 Approved by: Uma Edmond M.D. on 06/25/2023 at 17:02
== END ==
PROVIDERS: PCP Registered Nurse; Referring Provider Registered Nurse; Visit Provider Registered Nurse
DX: M25.551 Pain in right hip (principal); Z96.641 Presence of right artificial hip joint
CPT/HCPCS: 73502

== ENCOUNTER → 2023-11-15 09:00 | Outpatient (CLI) | payer MEDICARE, OTHER, SELFPAY ==
[2021-12-06 13:04] VITALS: BMI 26.6
--- NOTE | 2023-11-15 | DI.CT.S_ITS ---
PROCEDURE: CT LUNG LOW DOSE SCREENING INDICATIONS: Tobacco use TECHNIQUE: Noncontrast 2.0-2.5 mm thick sections acquired from the pulmonary apices to the posterior costophrenic angles. 7 mm thick axial MIP, and 5 mm coronal and sagittal reformats were then acquired. For radiation dose reduction, the following was used: automated exposure control, adjustment of mA and/or kV according to patient size. COMPARISON: None. FINDINGS: Image quality: Diagnostic. Lower Neck: No enlarged lymph nodes. Thyroid: No thyroid nodules which require sonographic follow up, per consensus guidelines. Axillae: No enlarged lymph nodes. Chest Wall: Unremarkable. Bones: [id number] levoconvex thoracic scoliosis is seen. Accentuated thoracic kyphosis is seen. Age-appropriate bony degenerative changes are seen. Lungs and Pleura: There is a pulmonary nodule seen within the left lower lobe, as on series 2, image 180 measuring 7 by 5 mm. No pneumothorax or pleural effusions are seen. No focal infiltrates are seen. Heart: Heart size is normal. No pericardial effusion. Mild coronary artery calcification is seen. Thoracic Vessels: The aorta and pulmonary arteries demonstrate normal size. Mediastinum and Nikia: No enlarged lymph nodes. Esophagus: No wall thickening. No hiatal hernia. Upper Abdomen: Cholecystectomy clips can be seen on the shipping agent image. Visualized upper abdomen solid organs and bowel loops appear normal. IMPRESSION: 7 mm left lower lobe pulmonary nodule. LUNG-RADS 3; a follow-up noncontrast chest CT in 6 months is recommended. Clinically Significant Non-pulmonary Findings: [id number] levoconvex thoracic scoliosis Mild coronary artery calcification Cholecystectomy Dictated by: Junior Preciado M.D. on 11/15/2023 at 11:44 Approved by: Junior Preciado M.D. on 11/15/2023 at 11:47
== END ==
LOC: CT 09:01
PROVIDERS: PCP Nurse Practitioner Family; Referring Provider Nurse Practitioner Family; Visit Provider Nurse Practitioner Family
DX: F17.210 Nicotine dependence, cigarettes, uncomplicated (principal); Z12.2 Encounter for screening for malignant neoplasm of respiratory organs; R91.1 Solitary pulmonary nodule; M41.9 Scoliosis, unspecified; I25.10 Atherosclerotic heart disease of native coronary artery without angina pectoris; Z90.49 Acquired absence of other specified parts of digestive tract
CPT/HCPCS: 71271

== ENCOUNTER → 2024-02-12 08:10 | Outpatient (CLI) | payer MEDICARE, OTHER, SELFPAY ==
[2021-12-06 13:04] VITALS: BMI 26.6
[2024-02-12 10:04] LABS: Alanine Aminotransferase 22 IU/L (<35); Albumin 4.3 g/dL (3.5-5.0); Alkaline Phosphatase 40 U/L (38-126); Aspartate Aminotransferase 20 IU/L (14-36); BUN Creatinine Ratio 24.1 (6-22); Bilirubin Total 0.7 mg/dL (0.2-1.3); Blood Urea Nitrogen 21 mg/dL (7-17); Calcium 9.3 mg/dL (8.4-10.2); Carbon Dioxide 30 mmol/L (22-32); Chloride 106 mmol/L (98-107); Estimated Glomerular Filt Rate > 60 mL/min (>60); Globulin 2.1 g/dL (1.7-4.1); Glucose 97 mg/dL (80-110); HEMOLYSIS < 15 (0-50); Potassium 3.8 mmol/L (3.4-5.1); Sodium 141 mmol/L (137-145); Total Protein 6.4 g/dL (6.3-8.2)
[2024-02-12 10:35] LABS: TSH w/ Reflex to FT4 3.22 uIU/mL (0.47-4.68)
[2024-02-12 10:52] LABS: Hep C Virus Ab w/Reflex Quant NEGATIVE s/c (NEGATIVE)
[2024-02-13 02:36] LABS: Cholesterol HDL Ratio 2.7 ratio (0.0-4.4); Cholesterol,Total 139 mg/dL (100-199); HDL Cholesterol 52 mg/dL (>39); LDL Cholesterol Cal 69 mg/dL (0-99); Triglycerides 98 mg/dL (0-149); VLDL Cholesterol Cal 18 mg/dL (5-40)
== END ==
PROVIDERS: PCP Nurse Practitioner Family; Referring Provider Nurse Practitioner Family; Visit Provider Nurse Practitioner Family
DX: Z11.59 Encounter for screening for other viral diseases (principal); E78.5 Hyperlipidemia, unspecified; F41.1 Generalized anxiety disorder
CPT/HCPCS: 36415; 80053; 80061; 84443; 86803

== ENCOUNTER → 2024-06-24 10:55 | Outpatient (CLI) | payer MEDICARE, OTHER, SELFPAY ==
[2021-12-06 13:04] VITALS: BMI 26.6
[2024-06-24 11:46] LABS: Appearance Urine UA CLEAR; Bilirubin Urine UA NEGATIVE (NEGATIVE); Color Urine UA YELLOW; Glucose Urine UA NEGATIVE (Negative); Ketones Urine UA NEGATIVE (NEGATIVE); Leukocyte Esterase Urine UA TRACE (NEGATIVE); Nitrite Urine UA POSITIVE (Negative); Occult Blood Urine UA NEGATIVE (Negative); Protein Urine UA NEGATIVE (Negative); Urobilinogen Urine UA 0.2 E.U./dL (0.2)
[2024-06-24 11:52] LABS: Bacteria Urine Moderate (10-30); Culture Indicated Urine Specimen Cultured; RBC Urine 0-1/HPF (0-5/HPF); Squamous Epithelial Cell Urine 10-30 /HPF (0-5/HPF); Urine Volume 10mL (spun); WBC Urine 1-5/HPF (0-5/HPF)
[2024-06-24 12:29] LABS: Add Manual Diff / Slide Review NO; Basophils Absolute Auto 0 /uL (0-100); Basophils Percent Auto 0.6 % (0-2); Eosinophils Absolute Auto 200 /uL (0-450); Eosinophils Percent Auto 3.4 % (2-4); Hematocrit 42.5 % (36-46); Hemoglobin 14.5 g/dL (12.0-16.0); Lymphocytes Absolute Auto 1900 /uL (1100-4500); Lymphocytes Percent Auto 27.5 % (25-40); Mean Corpuscular Hemoglobin 32.4 PG (26-34); Mean Corpuscular Volume 95.2 fL (80-100); Monocytes Absolute Auto 600 /uL (0-900); Monocytes Percent Auto 8.1 % (3-14); Neutrophils Absolute Auto 4200 /uL (1500-7000); Neutrophils Percent Auto 60.4 % (50-75); Platelet Count 283 X10^3/uL (150-400); Red Blood Cell Count 4.47 X10^6/uL (4.0-5.2); Red Cell Distribution Width 13.2 % (11.6-14.8); White Blood Cell Count 6.9 X10^3/uL (4.5-11.0)
[2024-06-24 15:01] LABS: Vitamin D 25 Hydroxy (D3) 60.4 ng/mL (30.0-100.0)
[2024-06-24 15:28] LABS: Free T4, Direct Thyroxine 1.25 ng/dL (0.78-2.19)
[2024-06-24 15:42] LABS: Thyroid Stimulating Hormone 4.55 uIU/mL (0.47-4.68)
[2024-06-25 20:08] LABS: Anti Thyroglobulin Antibody <1.0 IU/mL (0.0-0.9); Thyroid Peroxidase Antibodies <9 IU/mL (0-34)
== END ==
LOC: LAB 10:57
PROVIDERS: PCP Nurse Practitioner Family; Referring Provider Psychiatry & Neurology Neurology; Visit Provider Psychiatry & Neurology Neurology
DX: G35 Multiple sclerosis (principal); R53.83 Other fatigue; E55.9 Vitamin D deficiency, unspecified
CPT/HCPCS: 36415; 81001; 82306; 84439; 84443; 85025; 86376; 86800; 87077; 87086